=== PATIENT | female | born 1970 | race Two or more races ===

== ENCOUNTER → 2016-08-07 | Outpatient (REF) | payer OTHER ==
[~2016-08-07] MED LIST: /PANT40TA PO; ASPI81TA7 PO; ASTORVASTATIN; BACT800T5 PO; CORE25TA PO; FENO145T PO; KRILL OIL PO; LISINOPRIL-HCTZ PO; LISIPOW PO; METF500T PO; MULTTAB4 PO; PERC7.5T12 PO; PRIL40CA PO; URISPAS PO; [UNRECOGNIZED DRUG - OTHER]; victoza SC
[2016-08-07 11:24] LABS: BASO % 0.9 % (0.0-1.0); EOS # 0.2 K/mm3 (0.0-0.50); EOS % 3.5 % (0.0-3.0); LARGE UNSTAINED CELL # 0.2 K/mm3 (0.0-0.4); LARGE UNSTAINED CELL % 3.3 % (0.0-4.0); LYMPH # 1.4 K/mm3 (1.5-4.5); LYMPH % 29.8 % (24.0-44.0); MEAN CORPUSCULAR HEMOGLOBIN 27.4 pg (27.0-33.0); MEAN CORPUSCULAR HGB CONC 32.3 g/dl (32.0-36.5); MEAN CORPUSCULAR VOLUME 84.8 fl (80.0-96.0); MONO # 0.3 K/mm3 (0.0-0.8); MONO % 5.9 % (0.0-5.0); NEUTROPHILS # 2.6 K/mm3 (1.8-7.7); NEUTROPHILS % 56.6 % (36.0-66.0); PLATELET COUNT, AUTOMATED 267 k/mm3 (150-450); RED CELL DISTRIBUTION WIDTH 14.2 % (11.5-14.5); WHITE BLOOD COUNT 4.5 K/mm3 (4.0-10.0)
[2016-08-07 12:01] LABS: ALBUMIN 3.7 GM/DL (3.2-5.2); ALBUMIN/GLOBULIN RATIO 1.09 (1.00-1.93); ALKALINE PHOSPHATASE 28 U/L (45-117); ALT/SGPT 28 U/L (12-78); ANION GAP 11 MEQ/L (8-16); AST/SGOT 17 U/L (15-37); BILIRUBIN,TOTAL 0.4 MG/DL (0.2-1.0); BLOOD UREA NITROGEN 15 MG/DL (7-18); CALCIUM LEVEL 8.7 MG/DL (8.5-10.1); CARBON DIOXIDE LEVEL 26 MEQ/L (21-32); CHLORIDE LEVEL 105 MEQ/L (98-107); CHOLESTEROL LEVEL 161 MG/DL (<200); CREATININE FOR GFR 0.77 MG/DL (0.55-1.02); GLOMERULAR FILTRATION RATE > 60.0 (>58); GLUCOSE, FASTING 133 MG/DL (70-105); POTASSIUM SERUM 4.3 MEQ/L (3.5-5.1); SODIUM LEVEL 142 MEQ/L (136-145); TOTAL PROTEIN 7.1 GM/DL (6.4-8.2); TRIGLYCERIDES LEVEL 233 MG/DL (<150)
== END ==
LOC: M SFHCCLAY 09:02
PROVIDERS: ATTEND Family Medicine
DX: D50.9 Iron deficiency anemia, unspecified (principal); E78.5 Hyperlipidemia, unspecified; E11.9 Type 2 diabetes mellitus without complications

== ENCOUNTER → 2016-11-03 | Outpatient (REF) | payer OTHER ==
[2016-11-03 11:53] LABS: EOS # 0.2 K/mm3 (0.0-0.50); EOS % 4.6 % (0.0-3.0); LARGE UNSTAINED CELL # 0.1 K/mm3 (0.0-0.4); LYMPH # 1.6 K/mm3 (1.5-4.5); LYMPH % 33.6 % (24.0-44.0); MEAN CORPUSCULAR HEMOGLOBIN 27.3 pg (27.0-33.0); MEAN CORPUSCULAR HGB CONC 31.6 g/dl (32.0-36.5); MEAN CORPUSCULAR VOLUME 86.3 fl (80.0-96.0); MONO # 0.3 K/mm3 (0.0-0.8); MONO % 6.3 % (0.0-5.0); NEUTROPHILS # 2.5 K/mm3 (1.8-7.7); NEUTROPHILS % 52.4 % (36.0-66.0); PLATELET COUNT, AUTOMATED 245 k/mm3 (150-450); RED CELL DISTRIBUTION WIDTH 14.8 % (11.5-14.5); WHITE BLOOD COUNT 4.8 K/mm3 (4.0-10.0)
[2016-11-03 13:02] LABS: ALBUMIN 3.9 GM/DL (3.2-5.2); ALBUMIN/GLOBULIN RATIO 1.22 (1.00-1.93); ALKALINE PHOSPHATASE 33 U/L (45-117); ALT/SGPT 35 U/L (12-78); ANION GAP 7 MEQ/L (8-16); AST/SGOT 12 U/L (15-37); BILIRUBIN,TOTAL 0.3 MG/DL (0.2-1.0); BLOOD UREA NITROGEN 15 MG/DL (7-18); CALCIUM LEVEL 9.4 MG/DL (8.5-10.1); CARBON DIOXIDE LEVEL 28 MEQ/L (21-32); CHLORIDE LEVEL 104 MEQ/L (98-107); CHOLESTEROL LEVEL 165 MG/DL (<200); CREATININE FOR GFR 0.86 MG/DL (0.55-1.02); GLOMERULAR FILTRATION RATE > 60.0 (>58); GLUCOSE, FASTING 136 MG/DL (70-105); SODIUM LEVEL 139 MEQ/L (136-145); TOTAL PROTEIN 7.1 GM/DL (6.4-8.2); TRIGLYCERIDES LEVEL 206 MG/DL (<150)
== END ==
LOC: M SFHCCLAY 08:28
PROVIDERS: ATTEND Family Medicine
DX: D50.9 Iron deficiency anemia, unspecified (principal); E11.9 Type 2 diabetes mellitus without complications; E78.5 Hyperlipidemia, unspecified

== ENCOUNTER → 2016-12-07 | Outpatient (REF) | payer OTHER | LOC: M SFHCCLAY 16:13 | PROVIDERS: ATTEND Family Medicine | DX: R30.0 Dysuria (principal) ==

== ENCOUNTER → 2016-12-28 | Outpatient (REF) | payer OTHER ==
[2016-12-28 16:51] LABS: BASO % 0.6 % (0.0-1.0); EOS # 0.1 K/mm3 (0.0-0.50); EOS % 1.5 % (0.0-3.0); LARGE UNSTAINED CELL # 0.2 K/mm3 (0.0-0.4); LARGE UNSTAINED CELL % 2.6 % (0.0-4.0); LYMPH # 1.9 K/mm3 (1.5-4.5); LYMPH % 32.2 % (24.0-44.0); MEAN CORPUSCULAR HEMOGLOBIN 28.1 pg (27.0-33.0); MEAN CORPUSCULAR HGB CONC 32.6 g/dl (32.0-36.5); MEAN CORPUSCULAR VOLUME 86.2 fl (80.0-96.0); MONO # 0.4 K/mm3 (0.0-0.8); MONO % 6.2 % (0.0-5.0); NEUTROPHILS # 3.3 K/mm3 (1.8-7.7); NEUTROPHILS % 56.9 % (36.0-66.0); PLATELET COUNT, AUTOMATED 326 k/mm3 (150-450); RED CELL DISTRIBUTION WIDTH 14.2 % (11.5-14.5); WHITE BLOOD COUNT 5.8 K/mm3 (4.0-10.0)
[2016-12-28 17:18] LABS: ALBUMIN 4.1 GM/DL (3.2-5.2); ALBUMIN/GLOBULIN RATIO 1.21 (1.00-1.93); ALKALINE PHOSPHATASE 29 U/L (45-117); ALT/SGPT 26 U/L (12-78); ANION GAP 9 MEQ/L (8-16); AST/SGOT 12 U/L (15-37); BILIRUBIN,TOTAL 0.4 MG/DL (0.2-1.0); BLOOD UREA NITROGEN 16 MG/DL (7-18); CALCIUM LEVEL 9.3 MG/DL (8.5-10.1); CARBON DIOXIDE LEVEL 28 MEQ/L (21-32); CHLORIDE LEVEL 102 MEQ/L (98-107); CREATININE FOR GFR 0.84 MG/DL (0.55-1.02); GLOMERULAR FILTRATION RATE > 60.0 (>58); GLUCOSE, FASTING 99 MG/DL (70-105); SODIUM LEVEL 139 MEQ/L (136-145); TOTAL PROTEIN 7.5 GM/DL (6.4-8.2)
== END ==
LOC: M SFHCCLAY 11:48
PROVIDERS: ATTEND Family Medicine
DX: R10.32 Left lower quadrant pain (principal); R10.2 Pelvic and perineal pain

== ENCOUNTER → 2017-02-05 | Outpatient (REF) | payer OTHER ==
[2017-02-05 11:24] LABS: BASO # 0.1 K/mm3 (0.0-0.2); BASO % 1.6 % (0.0-1.0); EOS # 0.2 K/mm3 (0.0-0.50); EOS % 3.1 % (0.0-3.0); LARGE UNSTAINED CELL # 0.2 K/mm3 (0.0-0.4); LARGE UNSTAINED CELL % 2.8 % (0.0-4.0); LYMPH # 1.9 K/mm3 (1.5-4.5); LYMPH % 35.6 % (24.0-44.0); MEAN CORPUSCULAR HEMOGLOBIN 28.4 pg (27.0-33.0); MEAN CORPUSCULAR HGB CONC 33.4 g/dl (32.0-36.5); MONO # 0.3 K/mm3 (0.0-0.8); MONO % 5.7 % (0.0-5.0); NEUTROPHILS # 2.8 K/mm3 (1.8-7.7); NEUTROPHILS % 51.1 % (36.0-66.0); PLATELET COUNT, AUTOMATED 299 k/mm3 (150-450); WHITE BLOOD COUNT 5.4 K/mm3 (4.0-10.0)
[2017-02-05 11:43] LABS: ANION GAP 7 MEQ/L (8-16); BLOOD UREA NITROGEN 17 MG/DL (7-18); CARBON DIOXIDE LEVEL 29 MEQ/L (21-32); CHLORIDE LEVEL 106 MEQ/L (98-107); CREATININE FOR GFR 0.91 MG/DL (0.55-1.02); GLOMERULAR FILTRATION RATE > 60.0 (>58); GLUCOSE, FASTING 126 MG/DL (70-105); POTASSIUM SERUM 3.9 MEQ/L (3.5-5.1); SODIUM LEVEL 142 MEQ/L (136-145)
== END ==
LOC: M SFHCCLAY 08:26
PROVIDERS: ATTEND Family Medicine
DX: D50.9 Iron deficiency anemia, unspecified (principal); E11.9 Type 2 diabetes mellitus without complications

== ENCOUNTER → 2017-05-04 | Outpatient (REF) | payer OTHER ==
[2017-05-04 12:01] LABS: BASO % 0.6 % (0.0-1.0); EOS # 0.1 10^3/uL (0.0-0.50); EOS % 1.3 % (0.0-3.0); IMMATURE GRANULOCYTE % 0.4 % (0-0); LYMPH # 1.7 10^3/uL (1.5-4.5); LYMPH % 32.6 % (24.0-44.0); MEAN CORPUSCULAR HEMOGLOBIN 27.1 pg (27.0-33.0); MEAN CORPUSCULAR HGB CONC 31.7 g/dl (32.0-36.5); MEAN CORPUSCULAR VOLUME 85.5 fl (80.0-96.0); MONO # 0.4 10^3/uL (0.0-0.8); NEUTROPHILS # 3.1 10^3/uL (1.8-7.7); NEUTROPHILS % 58.1 % (36.0-66.0); PLATELET COUNT, AUTOMATED 327 10^3/uL (150-450); RED CELL DISTRIBUTION WIDTH 15.1 % (11.5-14.5); WHITE BLOOD COUNT 5.3 10^3/uL (4.0-10.0)
[2017-05-04 12:10] LABS: ADD MANUAL DIFFER NO; DIFF SLIDE NUMBER 133
[2017-05-04 12:27] LABS: ANION GAP 7 MEQ/L (8-16); BLOOD UREA NITROGEN 19 MG/DL (7-18); CALCIUM LEVEL 9.2 MG/DL (8.5-10.1); CARBON DIOXIDE LEVEL 28 MEQ/L (21-32); CHLORIDE LEVEL 105 MEQ/L (98-107); CREATININE FOR GFR 0.86 MG/DL (0.55-1.02); GLOMERULAR FILTRATION RATE > 60.0 (>58); GLUCOSE, FASTING 101 MG/DL (70-105); SODIUM LEVEL 140 MEQ/L (136-145)
== END ==
LOC: M SFHCCLAY 08:57
PROVIDERS: ATTEND Family Medicine
DX: D50.9 Iron deficiency anemia, unspecified (principal); E11.9 Type 2 diabetes mellitus without complications

== ENCOUNTER → 2017-08-22 | Outpatient (REF) | payer OTHER ==
[2017-08-22 13:51] LABS: BASO # 0.1 10^3/uL (0.0-0.2); BASO % 0.8 % (0.0-1.0); EOS # 0.1 10^3/uL (0.0-0.50); EOS % 2.3 % (0.0-3.0); HEMATOCRIT 37.5 % (36.0-47.0); HEMOGLOBIN 11.8 g/dl (12.0-16.0); IMMATURE GRANULOCYTE % 0.5 % (0-0); LYMPH % 33.3 % (24.0-44.0); MEAN CORPUSCULAR HEMOGLOBIN 27.1 pg (27.0-33.0); MEAN CORPUSCULAR HGB CONC 31.5 g/dl (32.0-36.5); MONO # 0.5 10^3/uL (0.0-0.8); MONO % 8.6 % (0.0-5.0); NEUTROPHILS # 3.3 10^3/uL (1.8-7.7); NEUTROPHILS % 54.5 % (36.0-66.0); PLATELET COUNT, AUTOMATED 318 10^3/uL (150-450); RED BLOOD COUNT 4.36 10^6/uL (4.00-5.40); RED CELL DISTRIBUTION WIDTH 14.7 % (11.5-14.5)
[2017-08-22 14:33] LABS: ANION GAP 8 MEQ/L (8-16); BLOOD UREA NITROGEN 20 MG/DL (7-18); CALCIUM LEVEL 9.1 MG/DL (8.5-10.1); CARBON DIOXIDE LEVEL 29 MEQ/L (21-32); CHLORIDE LEVEL 103 MEQ/L (98-107); CREATININE FOR GFR 0.78 MG/DL (0.55-1.02); GLOMERULAR FILTRATION RATE > 60.0 (>58); GLUCOSE, FASTING 110 MG/DL (70-100); IRON (FE) 34 UG/DL (50-170); POTASSIUM SERUM 4.1 MEQ/L (3.5-5.1); SODIUM LEVEL 140 MEQ/L (136-145)
[2017-08-22 15:03] LABS: ESTIMATED AVERAGE GLUCOSE 134 MG/DL (60-110); HEMOGLOBIN A1c 6.3 %
== END ==
LOC: M SFHCCLAY 08:19
DX: I10 Essential (primary) hypertension (principal); D50.9 Iron deficiency anemia, unspecified; E11.9 Type 2 diabetes mellitus without complications
CPT/HCPCS: 83540

== ENCOUNTER → 2017-10-04 | Outpatient (REF) | payer OTHER | LOC: M SFHCCLAY 10:28 | DX: R31.9 Hematuria, unspecified (principal) | CPT/HCPCS: 87186 ==

== ENCOUNTER → 2017-11-09 | Outpatient (REF) | payer OTHER ==
[2017-11-09 11:41] LABS: BASO # 0.1 10^3/uL (0.0-0.2); EOS # 0.1 10^3/uL (0.0-0.50); EOS % 2.7 % (0.0-3.0); HEMATOCRIT 36.9 % (36.0-47.0); HEMOGLOBIN 11.6 g/dl (12.0-15.5); IMMATURE GRANULOCYTE % 0.6 % (0-3.0); LYMPH # 1.6 10^3/uL (1.5-4.5); LYMPH % 30.9 % (24.0-44.0); MEAN CORPUSCULAR HEMOGLOBIN 26.7 pg (27.0-33.0); MEAN CORPUSCULAR HGB CONC 31.4 g/dl (32.0-36.5); MEAN CORPUSCULAR VOLUME 84.8 fl (80.0-96.0); MONO # 0.4 10^3/uL (0.0-0.8); MONO % 8.6 % (0.0-5.0); NEUTROPHILS # 2.9 10^3/uL (1.8-7.7); NEUTROPHILS % 56.2 % (36.0-66.0); PLATELET COUNT, AUTOMATED 344 10^3/uL (150-450); RED BLOOD COUNT 4.35 10^6/uL (4.00-5.40); RED CELL DISTRIBUTION WIDTH 14.8 % (11.5-14.5); WHITE BLOOD COUNT 5.1 10^3/uL (4.0-10.0)
[2017-11-09 11:53] LABS: ESTIMATED AVERAGE GLUCOSE 134 MG/DL (60-110); HEMOGLOBIN A1c 6.3 %
[2017-11-09 12:25] LABS: ALBUMIN/GLOBULIN RATIO 1.08 (1.00-1.93); ALKALINE PHOSPHATASE 31 U/L (45-117); ALT/SGPT 29 U/L (12-78); ANION GAP 8 MEQ/L (8-16); AST/SGOT 14 U/L (7-37); BILIRUBIN,TOTAL 0.3 MG/DL (0.2-1.0); BLOOD UREA NITROGEN 17 MG/DL (7-18); CALCIUM LEVEL 9.1 MG/DL (8.5-10.1); CARBON DIOXIDE LEVEL 28 MEQ/L (21-32); CHLORIDE LEVEL 106 MEQ/L (98-107); CHOLESTEROL LEVEL 166 MG/DL (<200); CHOLESTEROL RISK RATIO 7.904 (<5); CREATININE FOR GFR 0.94 MG/DL (0.55-1.30); GLOMERULAR FILTRATION RATE > 60.0 (>58); GLUCOSE, FASTING 113 MG/DL (70-100); HDL CHOLESTEROL 21 MG/DL (>40); IRON (FE) 44 UG/DL (50-170); LDL CHOLESTEROL 95.6 MG/DL (<100); NON-HDL-C 145 MG/DL; POTASSIUM SERUM 4.3 MEQ/L (3.5-5.1); SODIUM LEVEL 142 MEQ/L (136-145); TOTAL PROTEIN 7.7 GM/DL (6.4-8.2); TRIGLYCERIDES LEVEL 247 MG/DL (<150)
== END ==
LOC: M SFHCCLAY 08:05
DX: D50.9 Iron deficiency anemia, unspecified (principal); E11.9 Type 2 diabetes mellitus without complications; E78.5 Hyperlipidemia, unspecified
CPT/HCPCS: 83540

== ENCOUNTER → 2018-02-18 | Outpatient (REF) | payer OTHER ==
[2018-02-18 11:53] LABS: BASO % 0.6 % (0.0-1.0); EOS # 0.1 10^3/uL (0.0-0.50); EOS % 2.5 % (0.0-3.0); HEMATOCRIT 35.8 % (36.0-47.0); HEMOGLOBIN 11.8 g/dl (12.0-15.5); IMMATURE GRANULOCYTE % 0.8 % (0-3.0); LYMPH # 1.4 10^3/uL (1.5-4.5); LYMPH % 27.3 % (24.0-44.0); MEAN CORPUSCULAR HEMOGLOBIN 28.4 pg (27.0-33.0); MEAN CORPUSCULAR VOLUME 86.1 fl (80.0-96.0); MONO # 0.4 10^3/uL (0.0-0.8); MONO % 7.8 % (0.0-5.0); NEUTROPHILS # 3.2 10^3/uL (1.8-7.7); PLATELET COUNT, AUTOMATED 288 10^3/uL (150-450); RED BLOOD COUNT 4.16 10^6/uL (4.00-5.40); RED CELL DISTRIBUTION WIDTH 15.2 % (11.5-14.5); WHITE BLOOD COUNT 5.2 10^3/uL (4.0-10.0)
[2018-02-18 12:37] LABS: ANION GAP 10 MEQ/L (8-16); BLOOD UREA NITROGEN 16 MG/DL (7-18); CALCIUM LEVEL 9.2 MG/DL (8.5-10.1); CARBON DIOXIDE LEVEL 29 MEQ/L (21-32); CHLORIDE LEVEL 103 MEQ/L (98-107); CREATININE FOR GFR 0.77 MG/DL (0.55-1.30); GLOMERULAR FILTRATION RATE > 60.0 (>58); GLUCOSE, FASTING 120 MG/DL (70-100); POTASSIUM SERUM 3.9 MEQ/L (3.5-5.1); SODIUM LEVEL 142 MEQ/L (136-145)
[2018-02-18 14:21] LABS: ESTIMATED AVERAGE GLUCOSE 146 MG/DL (60-110); HEMOGLOBIN A1c 6.7 %
== END ==
LOC: M SFHCCLAY 08:54
DX: D50.9 Iron deficiency anemia, unspecified (principal); E11.9 Type 2 diabetes mellitus without complications

== ENCOUNTER → 2018-06-05 | Outpatient (REF) | payer OTHER ==
[2018-06-05 11:40] LABS: BASO # 0.1 10^3/uL (0.0-0.2); BASO % 1.1 % (0.0-1.0); EOS # 0.1 10^3/uL (0.0-0.50); EOS % 2.2 % (0.0-3.0); HEMATOCRIT 38.1 % (36.0-47.0); HEMOGLOBIN 12.2 g/dl (12.0-15.5); IMMATURE GRANULOCYTE % 0.5 % (0-3.0); LYMPH # 1.9 10^3/uL (1.5-4.5); LYMPH % 34.2 % (24.0-44.0); MEAN CORPUSCULAR HEMOGLOBIN 27.7 pg (27.0-33.0); MEAN CORPUSCULAR VOLUME 86.4 fl (80.0-96.0); MONO # 0.5 10^3/uL (0.0-0.8); MONO % 8.3 % (0.0-5.0); NEUTROPHILS % 53.7 % (36.0-66.0); PLATELET COUNT, AUTOMATED 339 10^3/uL (150-450); RED BLOOD COUNT 4.41 10^6/uL (4.00-5.40); RED CELL DISTRIBUTION WIDTH 14.6 % (11.5-14.5); WHITE BLOOD COUNT 5.5 10^3/uL (4.0-10.0)
[2018-06-05 11:47] LABS: ALBUMIN/GLOBULIN RATIO 1.18 (1.00-1.93); ALKALINE PHOSPHATASE 28 U/L (45-117); ALT/SGPT 30 U/L (12-78); ANION GAP 9 MEQ/L (8-16); AST/SGOT 14 U/L (7-37); BILIRUBIN,TOTAL 0.3 MG/DL (0.2-1.0); BLOOD UREA NITROGEN 16 MG/DL (7-18); CALCIUM LEVEL 9.8 MG/DL (8.5-10.1); CARBON DIOXIDE LEVEL 28 MEQ/L (21-32); CHLORIDE LEVEL 104 MEQ/L (98-107); CHOLESTEROL LEVEL 161 MG/DL (<200); CHOLESTEROL RISK RATIO 7.666 (<5); CREATININE FOR GFR 0.86 MG/DL (0.55-1.30); GLOMERULAR FILTRATION RATE > 60.0 (>58); GLUCOSE, FASTING 110 MG/DL (70-100); HDL CHOLESTEROL 21 MG/DL (>40); IRON (FE) 36 UG/DL (50-170); LDL CHOLESTEROL 91 MG/DL (<100); NON-HDL-C 140 MG/DL; POTASSIUM SERUM 4.3 MEQ/L (3.5-5.1); SODIUM LEVEL 141 MEQ/L (136-145); TOTAL PROTEIN 7.4 GM/DL (6.4-8.2); TRIGLYCERIDES LEVEL 246 MG/DL (<150)
[2018-06-05 11:55] LABS: ESTIMATED AVERAGE GLUCOSE 140 MG/DL (60-110); HEMOGLOBIN A1c 6.5 %
== END ==
LOC: M SFHCCLAY 08:00
DX: D50.9 Iron deficiency anemia, unspecified (principal); E11.9 Type 2 diabetes mellitus without complications; E78.5 Hyperlipidemia, unspecified

== ENCOUNTER → 2018-08-01 | Outpatient (REF) | payer OTHER | LOC: M SFHCCLAY 12:07 | PROVIDERS: ATTEND Nurse Practitioner Family | DX: N39.0 Urinary tract infection, site not specified (principal) ==

== ENCOUNTER → 2018-09-12 | Outpatient (REF) | payer OTHER ==
[2018-09-12 12:07] LABS: ALT/SGPT 28 U/L (12-78); BILIRUBIN,TOTAL 0.2 MG/DL (0.2-1.0); BLOOD UREA NITROGEN 21 MG/DL (7-18); CALCIUM LEVEL 8.8 MG/DL (8.5-10.1); CARBON DIOXIDE LEVEL 28 MEQ/L (21-32); CHLORIDE LEVEL 103 MEQ/L (98-107); CHOLESTEROL LEVEL 166 MG/DL (<200); CHOLESTEROL RISK RATIO 9.222 (<5); CREATININE FOR GFR 0.86 MG/DL (0.55-1.30); GLOMERULAR FILTRATION RATE > 60.0 (>58); GLUCOSE, FASTING 111 MG/DL (70-100); HDL CHOLESTEROL 18 MG/DL (>40); LDL CHOLESTEROL 87 MG/DL (<100); NON-HDL-C 148 MG/DL; POTASSIUM SERUM 4.2 MEQ/L (3.5-5.1); SODIUM LEVEL 140 MEQ/L (136-145); TOTAL PROTEIN 7.3 GM/DL (6.4-8.2); TRIGLYCERIDES LEVEL 303 MG/DL (<150)
[2018-09-12 14:16] LABS: HEMOGLOBIN A1c 6.8 %
== END ==
LOC: M SFHCCLAY 07:37
PROVIDERS: ATTEND Family Medicine
DX: E11.9 Type 2 diabetes mellitus without complications (principal); E78.5 Hyperlipidemia, unspecified

== ENCOUNTER → 2019-01-21 | Outpatient (REF) | payer OTHER ==
[~2019-01-21] MED LIST changes: -/PANT40TA PO; +PROT1TAB2 PO
[2019-01-21 11:42] LABS: BASO # 0.1 10^3/uL (0.0-0.2); BASO % 1.1 % (0.0-1.0); EOS # 0.1 10^3/uL (0.0-0.50); EOS % 3.2 % (0.0-3.0); HEMATOCRIT 35.7 % (36.0-47.0); HEMOGLOBIN 11.1 g/dl (12.0-15.5); LYMPH # 1.7 10^3/uL (1.5-4.5); LYMPH % 37.7 % (24.0-44.0); MEAN CORPUSCULAR HEMOGLOBIN 26.4 pg (27.0-33.0); MEAN CORPUSCULAR HGB CONC 31.1 g/dl (32.0-36.5); MONO # 0.5 10^3/uL (0.0-0.8); MONO % 10.5 % (0.0-5.0); NEUTROPHILS # 2.1 10^3/uL (1.8-7.7); PLATELET COUNT, AUTOMATED 324 10^3/uL (150-450); WHITE BLOOD COUNT 4.4 10^3/uL (4.0-10.0)
[2019-01-21 11:50] LABS: ALBUMIN 3.9 GM/DL (3.2-5.2); ALT/SGPT 32 U/L (12-78); BILIRUBIN,TOTAL 0.2 MG/DL (0.2-1.0); BLOOD UREA NITROGEN 16 MG/DL (7-18); CALCIUM LEVEL 9.3 MG/DL (8.5-10.1); CARBON DIOXIDE LEVEL 28 MEQ/L (21-32); CHLORIDE LEVEL 104 MEQ/L (98-107); CHOLESTEROL LEVEL 165 MG/DL (<200); CREATININE FOR GFR 0.83 MG/DL (0.55-1.30); GLOMERULAR FILTRATION RATE > 60.0 (>58); GLUCOSE, FASTING 128 MG/DL (70-100); HDL CHOLESTEROL 22 MG/DL (>40); IRON (FE) 31 UG/DL (50-170); LDL CHOLESTEROL 71 MG/DL (<100); NON-HDL-C 143 MG/DL; POTASSIUM SERUM 3.9 MEQ/L (3.5-5.1); SODIUM LEVEL 140 MEQ/L (136-145); TOTAL PROTEIN 7.2 GM/DL (6.4-8.2); TRIGLYCERIDES LEVEL 358 MG/DL (<150)
== END ==
LOC: M SFHCCLAY 08:01
PROVIDERS: ATTEND Family Medicine
DX: D50.9 Iron deficiency anemia, unspecified (principal); E11.9 Type 2 diabetes mellitus without complications; E78.5 Hyperlipidemia, unspecified

== ENCOUNTER → 2019-04-01 | Outpatient (REF) | payer OTHER ==
[2019-04-01 17:27] LABS: BLOOD UREA NITROGEN 15 MG/DL (7-18); CALCIUM LEVEL 9.4 MG/DL (8.5-10.1); CARBON DIOXIDE LEVEL 27 MEQ/L (21-32); CHLORIDE LEVEL 104 MEQ/L (98-107); CREATININE FOR GFR 0.72 MG/DL (0.55-1.30); GLOMERULAR FILTRATION RATE > 60.0 (>58); GLUCOSE, FASTING 88 MG/DL (70-100); MAGNESIUM LEVEL 1.6 MG/DL (1.8-2.4); POTASSIUM SERUM 4.4 MEQ/L (3.5-5.1); SODIUM LEVEL 139 MEQ/L (136-145)
== END ==
LOC: M SFHCCLAY 13:28
PROVIDERS: ATTEND Family Medicine
DX: E87.6 Hypokalemia (principal); R79.0 Abnormal level of blood mineral

== ENCOUNTER → 2019-04-01 | Outpatient (CLI) | payer OTHER ==
--- NOTE | 2019-04-01 14:58 | REP ---
Clinical: Recent history of right lower lobe pneumonia. Comparison: 04/07/2013 . Technique: PA and lateral. Findings: The mediastinum and cardiac silhouette are normal. The lung mayo are clear and without acute consolidation, effusion, or pneumothorax. The skeletal structures are intact and normal. Impression: 1. No acute cardiopulmonary process. Electronically Signed by Jose Blair MD 04/01/2019 02:49 P
== END ==
LOC: M CLY 13:50
PROVIDERS: ATTEND Family Medicine
DX: J18.1 Lobar pneumonia, unspecified organism (principal)

== ENCOUNTER → 2019-04-02 | Outpatient (REF) | payer OTHER ==
[2019-04-02 14:24] LABS: APPEARANCE, URINE CLEAR (CLEAR); BACTERIA, URINE AUTO NEGATIVE (NEGATIVE); BILIRUBIN, URINE AUTO NEGATIVE (NEGATIVE); BLOOD, URINE BLOOD NEGATIVE (NEGATIVE); COLOR, URINE YELLOW (YELLOW); GLUCOSE, URINE (UA) AUTO NEGATIVE (NEGATIVE); KETONE, URINE AUTO NEGATIVE (NEGATIVE); LEUKOCYTE ESTERASE, URINE AUTO NEGATIVE (NEGATIVE); NITRITE, URINE AUTO NEGATIVE (NEGATIVE); PROTEIN, URINE AUTO NEGATIVE (NEGATIVE); RBC, URINE AUTO 1 /HPF (0-3); SPECIFIC GRAVITY URINE AUTO 1.017 (1.002-1.035); SQUAMOUS EPITHELIAL CELL UR AU 0 /HPF (0-6); UROBILINOGEN, URINE AUTO 0.2 mg/dL (0.0-2.0); WBC, URINE AUTO 3 /HPF (0-3)
== END ==
LOC: M SMT 13:23
PROVIDERS: ATTEND Nurse Practitioner Family
DX: N20.0 Calculus of kidney (principal)

== ENCOUNTER → 2019-05-19 | Outpatient (REF) | payer OTHER ==
[2019-05-19 11:23] LABS: BASO # 0.1 10^3/uL (0.0-0.2); BASO % 1.2 % (0.0-1.0); EOS # 0.2 10^3/uL (0.0-0.5); EOS % 3.3 % (0.0-3.0); HEMATOCRIT 40.2 % (36.0-47.0); HEMOGLOBIN 12.5 g/dl (12.0-15.5); LYMPH # 1.6 10^3/uL (1.5-5.0); LYMPH % 32.1 % (24.0-44.0); MEAN CORPUSCULAR HEMOGLOBIN 27.5 pg (27.0-33.0); MEAN CORPUSCULAR HGB CONC 31.1 g/dl (32.0-36.5); MEAN CORPUSCULAR VOLUME 88.4 fl (80.0-96.0); MONO # 0.4 10^3/uL (0.0-0.8); MONO % 8.3 % (0.0-5.0); NEUTROPHILS # 2.8 10^3/uL (1.5-8.5); NEUTROPHILS % 54.3 % (36.0-66.0); PLATELET COUNT, AUTOMATED 306 10^3/uL (150-450); RED BLOOD COUNT 4.55 10^6/uL (4.00-5.40); WHITE BLOOD COUNT 5.1 10^3/uL (4.0-10.0)
[2019-05-19 11:40] LABS: ALBUMIN 4.1 GM/DL (3.2-5.2); ALT/SGPT 30 U/L (12-78); BILIRUBIN,TOTAL 0.3 MG/DL (0.2-1.0); BLOOD UREA NITROGEN 19 MG/DL (7-18); CALCIUM LEVEL 9.5 MG/DL (8.5-10.1); CARBON DIOXIDE LEVEL 29 MEQ/L (21-32); CHLORIDE LEVEL 104 MEQ/L (98-107); CREATININE FOR GFR 0.87 MG/DL (0.55-1.30); GLOMERULAR FILTRATION RATE > 60.0 (>58); GLUCOSE, FASTING 138 MG/DL (70-100); IRON (FE) 47 UG/DL (50-170); POTASSIUM SERUM 4.3 MEQ/L (3.5-5.1); SODIUM LEVEL 139 MEQ/L (136-145); TOTAL PROTEIN 7.9 GM/DL (6.4-8.2)
[2019-05-19 12:35] LABS: HEMOGLOBIN A1c 6.8 %
== END ==
LOC: M SFHCCLAY 07:25
PROVIDERS: ATTEND Family Medicine
DX: D50.9 Iron deficiency anemia, unspecified (principal); E11.9 Type 2 diabetes mellitus without complications; I10 Essential (primary) hypertension; E78.5 Hyperlipidemia, unspecified

== ENCOUNTER → 2019-08-29 | Outpatient (REF) | payer OTHER ==
[2019-08-29 12:03] LABS: BASO # 0.1 10^3/uL (0.0-0.2); BASO % 0.8 % (0.0-1.0); EOS # 0.2 10^3/uL (0.0-0.5); EOS % 2.5 % (0.0-3.0); HEMATOCRIT 41.3 % (36.0-47.0); HEMOGLOBIN 12.9 g/dl (12.0-15.5); LYMPH # 1.7 10^3/uL (1.5-5.0); LYMPH % 25.7 % (24.0-44.0); MEAN CORPUSCULAR HGB CONC 31.2 g/dl (32.0-36.5); MEAN CORPUSCULAR VOLUME 89.6 fl (80.0-96.0); MONO # 0.5 10^3/uL (0.0-0.8); MONO % 7.7 % (0.0-5.0); NEUTROPHILS # 4.1 10^3/uL (1.5-8.5); PLATELET COUNT, AUTOMATED 282 10^3/uL (150-450); RED BLOOD COUNT 4.61 10^6/uL (4.00-5.40); WHITE BLOOD COUNT 6.5 10^3/uL (4.0-10.0)
[2019-08-29 12:32] LABS: HEMOGLOBIN A1c 7.1 %
[2019-08-29 12:41] LABS: ALBUMIN 4.2 GM/DL (3.2-5.2); ALT/SGPT 36 U/L (12-78); BILIRUBIN,TOTAL 0.6 MG/DL (0.2-1.0); BLOOD UREA NITROGEN 17 MG/DL (7-18); CALCIUM LEVEL 9.2 MG/DL (8.5-10.1); CARBON DIOXIDE LEVEL 29 MEQ/L (21-32); CHLORIDE LEVEL 106 MEQ/L (98-107); CREATININE FOR GFR 0.89 MG/DL (0.55-1.30); GLOMERULAR FILTRATION RATE > 60.0 (>58); GLUCOSE, FASTING 130 MG/DL (70-100); IRON (FE) 38 UG/DL (50-170); POTASSIUM SERUM 4.1 MEQ/L (3.5-5.1); SODIUM LEVEL 141 MEQ/L (136-145); TOTAL PROTEIN 7.4 GM/DL (6.4-8.2)
== END ==
LOC: M SFHCCLAY 07:24
PROVIDERS: ATTEND Family Medicine
DX: D50.9 Iron deficiency anemia, unspecified (principal); E11.9 Type 2 diabetes mellitus without complications

== ENCOUNTER → 2019-09-01 | Outpatient (CLI) | payer OTHER ==
--- NOTE | 2019-09-02 02:33 | REP ---
Clinical: Lumbar radiculopathy . Technique: AP, lateral, bilateral oblique, and coned-down views. Findings: Lateral view demonstrates mild, 4 mm anterolisthesis at the L4-5 without associated disc space narrowing or obvious significant hypertrophic facet changes. Mild endplate sclerosis with disc space narrowing and hypertrophic facet changes at L5-S1 noted. Remainder examination appears relatively normal. Impression: Degenerative changes at the L4-5 and L5-S1 levels. Electronically Signed by Jose Blair MD 09/02/2019 02:25 A
== END ==
LOC: M CLY 14:00
PROVIDERS: ATTEND Family Medicine
DX: M54.16 Radiculopathy, lumbar region (principal)

== ENCOUNTER → 2019-09-01 | Outpatient (REF) | payer OTHER ==
[2019-09-01 17:27] LABS: C REACTIVE PROTEIN QUANTITATIV < 0.30 MG/DL (0.00-0.30); RHEUMATOID FACTOR QUANT < 10.0 IU/ML (<15.0)
[2019-09-04 00:06] LABS: ANA (HEP2) Negative (.); CYCLIC CITRULLINATED PEPTIDE 11 units (0-19); Lyme Disease IgG/IgM Antibodie <0.91 ISR (0.00-0.90); Lyme Disease IgM Ab Quantitati <0.80 index (0.00-0.79)
== END ==
LOC: M SFHCCLAY 13:32
PROVIDERS: ATTEND Family Medicine
DX: M54.16 Radiculopathy, lumbar region (principal); M25.50 Pain in unspecified joint

== ENCOUNTER → 2019-12-01 | Outpatient (REF) | payer OTHER ==
[2019-12-01 12:35] LABS: BASO % 0.9 % (0.0-1.0); EOS # 0.1 10^3/uL (0.0-0.5); EOS % 2.9 % (0.0-3.0); HEMATOCRIT 38.6 % (36.0-47.0); HEMOGLOBIN 12.5 g/dl (12.0-15.5); LYMPH # 1.6 10^3/uL (1.5-5.0); LYMPH % 36.6 % (24.0-44.0); MEAN CORPUSCULAR HEMOGLOBIN 28.7 pg (27.0-33.0); MEAN CORPUSCULAR HGB CONC 32.4 g/dl (32.0-36.5); MEAN CORPUSCULAR VOLUME 88.5 fl (80.0-96.0); MONO # 0.4 10^3/uL (0.0-0.8); MONO % 8.8 % (0.0-5.0); NEUTROPHILS # 2.2 10^3/uL (1.5-8.5); NEUTROPHILS % 50.4 % (36.0-66.0); PLATELET COUNT, AUTOMATED 273 10^3/uL (150-450); RED BLOOD COUNT 4.36 10^6/uL (4.00-5.40); WHITE BLOOD COUNT 4.5 10^3/uL (4.0-10.0)
[2019-12-01 13:33] LABS: ALT/SGPT 34 U/L (12-78); BLOOD UREA NITROGEN 19 MG/DL (7-18); CALCIUM LEVEL 9.2 MG/DL (8.5-10.1); CARBON DIOXIDE LEVEL 26 MEQ/L (21-32); CHLORIDE LEVEL 103 MEQ/L (98-107); CREATININE FOR GFR 0.72 MG/DL (0.55-1.30); GLOMERULAR FILTRATION RATE > 60.0 (>58); GLUCOSE, FASTING 131 MG/DL (70-100); POTASSIUM SERUM 3.9 MEQ/L (3.5-5.1); SODIUM LEVEL 138 MEQ/L (136-145)
[2019-12-01 13:34] LABS: ALBUMIN 3.9 GM/DL (3.2-5.2); BILIRUBIN,TOTAL 0.3 MG/DL (0.2-1.0); IRON (FE) 45 UG/DL (50-170); TOTAL PROTEIN 7.2 GM/DL (6.4-8.2)
[2019-12-01 13:56] LABS: HEMOGLOBIN A1c 7.4 %
== END ==
LOC: M SFHCCLAY 09:10
PROVIDERS: ATTEND Family Medicine
DX: D50.9 Iron deficiency anemia, unspecified (principal); E11.9 Type 2 diabetes mellitus without complications

== ENCOUNTER → 2020-03-15 | Outpatient (REF) | payer OTHER ==
[~2020-03-15] MED LIST changes: +ATOR1TAB19 PO; +CIPR250T3 PO; +DICY20TA11 PO; +FENO160T10 PO; +FERR325T81 PO; +KRIL300C2 PO; +LISI20TA20 PO; +TRUL0.5I IM; +VITA-243 PO
[2020-05-01 18:36] LABS: HEMATOCRIT 36.6 % (36.0-47.0); HEMOGLOBIN 11.9 g/dl (12.0-15.5); MEAN CORPUSCULAR HEMOGLOBIN 29.2 pg (27.0-33.0); MEAN CORPUSCULAR VOLUME 89.9 fl (80.0-96.0); RED BLOOD COUNT 4.07 10^6/uL (4.00-5.40); WHITE BLOOD COUNT 4.8 10^3/uL (4.0-10.0)
[2020-05-01 18:37] LABS: MEAN CORPUSCULAR HGB CONC 32.5 g/dl (32.0-36.5); PLATELET COUNT, AUTOMATED 260 10^3/uL (150-450)
[2020-05-10 21:38] LABS: HEMOGLOBIN A1c 6.4 %
[2020-05-11 00:43] LABS: ALT/SGPT 35 U/L (12-78); BILIRUBIN,TOTAL 0.2 MG/DL (0.2-1.0); BLOOD UREA NITROGEN 15 MG/DL (7-18); CALCIUM LEVEL 9.3 MG/DL (8.5-10.1); CARBON DIOXIDE LEVEL 30 MEQ/L (21-32); CHLORIDE LEVEL 104 MEQ/L (98-107); CREATININE FOR GFR 0.73 MG/DL (0.55-1.30); GLOMERULAR FILTRATION RATE > 60.0 (>58); GLUCOSE, FASTING 137 MG/DL (70-100); IRON (FE) 43 UG/DL (50-170); POTASSIUM SERUM 3.9 MEQ/L (3.5-5.1); SODIUM LEVEL 138 MEQ/L (136-145)
== END ==
LOC: M SFHCCLAY 16:51
PROVIDERS: ATTEND Family Medicine
DX: R73.01 Impaired fasting glucose (principal); D64.9 Anemia, unspecified

== ENCOUNTER → 2020-05-02 | Outpatient (CLI) | payer OTHER | LOC: M LABSMTC 10:16 | PROVIDERS: ATTEND Anesthesiology | DX: Z01.812 Encounter for preprocedural laboratory examination (principal); Z20.828 Contact with and (suspected) exposure to other viral communicable diseases | CPT/HCPCS: C9803; U0003 ==

== ENCOUNTER 2020-05-07 09:32 | Day surgery (SDC) | payer OTHER ==
[~2020-05-07] VITALS: Ht 157.5 cm; Wt 78.0 kg
[~2020-05-07 09:32] MED LIST changes: +NS 1,000 ML IV ONE
[2020-05-07] MEDS ORDERED: propofoL 200 MG/20 ML VIAL As Ordered ONE ×2 (11:18→11:52)
[2020-05-07] MEDS ORDERED: LIDOCAINE 2% 100MG/5ML SDV (FOR ANES.) As Ordered ONE (11:18)
[2020-05-07] MEDS ORDERED: CETACAINE SPRAY 5GM As Ordered ONE (11:33)
--- NOTE | 2020-05-07 12:23 | ROOR ---
Patient Name: Stlela Fagan Procedure Date: 05/07/2020 11:30 AM Date of : 1970 Age: 49 Room: [facility] Gender: Female Note Status: Finalized Procedure: Upper GI endoscopy Indications: Heartburn, Suspected gastro-esophageal reflux disease Providers: Chuy Garcia MD Referring MD: HAILY GARCIA DO Requesting Provider: Medicines: Monitored Anesthesia Care Complications: No immediate complications. Procedure: Pre-Anesthesia Assessment: - Prior to the procedure, a History and Physical was performed, and patient medications and allergies were reviewed. The patient is competent. The risks and benefits of the procedure and the sedation options and risks were discussed with the patient. All questions were answered and informed consent was obtained. Patient identification and proposed procedure were verified by the physician, the nurse and the anesthesiologist in the procedure room. Mental Status Examination: alert and oriented. Airway Examination: normal oropharyngeal airway and neck mobility. Respiratory Examination: clear to auscultation. CV Examination: normal. Prophylactic Antibiotics: The patient does not require prophylactic antibiotics. Prior Anticoagulants: The patient has taken no previous anticoagulant or antiplatelet agents. ASA Grade Assessment: II - A patient with mild systemic disease. After reviewing the risks and benefits, the patient was deemed in satisfactory condition to undergo the procedure. The anesthesia plan was to use moderate sedation / analgesia (conscious sedation). Immediately prior to administration of medications, the patient was re-assessed for adequacy to receive sedatives. The heart rate, respiratory rate, oxygen saturations, blood pressure, adequacy of pulmonary ventilation, and response to care were monitored throughout the procedure. The physical status of the patient was re-assessed after the procedure. The Endoscope was introduced through the mouth, and advanced to the second part of duodenum. The upper GI endoscopy was accomplished without difficulty. The patient tolerated the procedure well. Findings: The examined esophagus was normal. The Z-line was regular and was found 39 cm from the incisors. Multiple large pedunculated and sessile fundic gland polyps with no bleeding and no stigmata of recent bleeding were found in the gastric fundus and in the gastric body. The polyp was removed with a cold snare. Resection and retrieval were complete. To close a defect after polypectomy, one hemostatic clip was successfully placed. There was no bleeding at the end of the procedure. Three biopsies were obtained in the gastric antrum with cold forceps for Helicobacter pylori testing. Verification of patient identification for the specimen was done by the physician and nurse using the patient's name, date and medical record number. Estimated blood loss was minimal. The duodenal bulb and second portion of the duodenum were normal. Biopsies for histology were taken with a cold forceps for evaluation of celiac disease. Impression: - Normal esophagus. - Z-line regular, 39 cm from the incisors. - Multiple fundic gland polyps. One sample polyp is resected and retrieved with jose net basket. Clip was placed. - Normal duodenal bulb and second portion of the duodenum. Biopsied. - Three biopsies were obtained in the gastric antrum for H. pylori testing.. Recommendation: - Patient has a contact number available for emergencies. The signs and symptoms of potential delayed complications were discussed with the patient. Return to normal activities tomorrow. Written discharge instructions were provided to the patient. - High fiber diet. - Continue present medications. - Use sucralfate tablets 1 gram PO QID for 4 weeks. - Await pathology results. - Follow an antireflux regimen. - Telephone GI clinic for pathology results in 1 week. - Return to primary care physician. Chuy Garcia MD Chuy Garcia MD 05/07/2020 12:23:05 PM Electronically signed by Chuy Garcia MD Number of Addenda: 0 Note Initiated On: 05/07/2020 11:30 AM Estimated Blood Loss: Estimated blood loss was minimal.
--- NOTE | 2020-05-07 12:26 | ROOR ---
Patient Name: Stella Fagan Procedure Date: 05/07/2020 11:31 AM Date of : 1970 Age: 49 Room: [facility] Gender: Female Note Status: Finalized Procedure: Colonoscopy Indications: Chronic diarrhea Providers: Chuy Garcia MD Referring MD: HAILY GARCIA DO Requesting Provider: Medicines: Monitored Anesthesia Care Complications: No immediate complications. Procedure: Pre-Anesthesia Assessment: - Prior to the procedure, a History and Physical was performed, and patient medications and allergies were reviewed. The patient is competent. The risks and benefits of the procedure and the sedation options and risks were discussed with the patient. All questions were answered and informed consent was obtained. Patient identification and proposed procedure were verified by the physician, the nurse and the anesthesiologist in the procedure room. Mental Status Examination: alert and oriented. Airway Examination: normal oropharyngeal airway and neck mobility. Respiratory Examination: clear to auscultation. CV Examination: normal. Prophylactic Antibiotics: The patient does not require prophylactic antibiotics. Prior Anticoagulants: The patient has taken no previous anticoagulant or antiplatelet agents. ASA Grade Assessment: II - A patient with mild systemic disease. After reviewing the risks and benefits, the patient was deemed in satisfactory condition to undergo the procedure. The anesthesia plan was to use monitored anesthesia care (MAC). Immediately prior to administration of medications, the patient was re-assessed for adequacy to receive sedatives. The heart rate, respiratory rate, oxygen saturations, blood pressure, adequacy of pulmonary ventilation, and response to care were monitored throughout the procedure. The physical status of the patient was re-assessed after the procedure. The Colonoscope was introduced through the anus and advanced to the terminal ileum, with identification of the appendiceal orifice and IC valve. The colonoscopy was performed without difficulty. The patient tolerated the procedure well. The quality of the bowel preparation was good. The terminal ileum, ileocecal valve, appendiceal orifice, and rectum were photographed. Scope insertion time was 3 minutes. Scope withdrawal time was 9 minutes. The total duration of the procedure was 12 minutes. Findings: The perianal and digital rectal examinations were normal. The terminal ileum appeared normal. Normal mucosa was found in the entire colon. Biopsies for histology were taken with a cold forceps from the right colon, left colon and rectosigmoid colon for evaluation of microscopic colitis. Verification of patient identification for the specimen was done by the physician and nurse using the patient's name, date and medical record number. Estimated blood loss was minimal. Multiple small-mouthed diverticula were found in the sigmoid colon. There was no evidence of diverticular bleeding. Non-bleeding external and internal hemorrhoids were found during retroflexion. The hemorrhoids were medium-sized. Impression: - The examined portion of the ileum was normal. - Normal mucosa in the entire examined colon. Biopsied. - Mild diverticulosis in the sigmoid colon. There was no evidence of diverticular bleeding. - Non-bleeding external and internal hemorrhoids. Recommendation: - Patient has a contact number available for emergencies. The signs and symptoms of potential delayed complications were discussed with the patient. Return to normal activities tomorrow. Written discharge instructions were provided to the patient. - High fiber diet. - Continue present medications. - Use original regular Metamucil one teaspoon PO daily for 6 weeks. - Await pathology results. - Repeat colonoscopy in 5-10 years for screening purposes. - Telephone GI clinic for pathology results in 2 weeks. - Return to primary care physician. Chuy Garcia MD Chuy Garcia MD 05/07/2020 12:25:57 PM Electronically signed by Chuy Garcia MD Number of Addenda: 0 Note Initiated On: 05/07/2020 11:31 AM Estimated Blood Loss: Estimated blood loss was minimal.
[2020-05-07 12:45] VITALS: BP 132/89
== END 2020-05-07 13:03 | disposition home or self-care (01) ==
LOC: M OPP 09:32
PROVIDERS: ATTEND Internal Medicine Gastroenterology
DX: K57.30 Diverticulosis of large intestine without perforation or abscess without bleeding (principal); K64.8 Other hemorrhoids; K52.9 Noninfective gastroenteritis and colitis, unspecified; K31.7 Polyp of stomach and duodenum; R12 Heartburn; I10 Essential (primary) hypertension; E11.9 Type 2 diabetes mellitus without complications; I71.2 Thoracic aortic aneurysm, without rupture; Z79.82 Long term (current) use of aspirin; Z79.84 Long term (current) use of oral hypoglycemic drugs; Z79.899 Other long term (current) drug therapy; Z91.030 Bee allergy status

== ENCOUNTER → 2020-05-11 | Outpatient (REF) | payer OTHER ==
[~2020-05-11] MED LIST changes: -NS 1,000 ML IV ONE
[2020-05-11 13:22] LABS: PERCENT SATURATION 9.3 % (13.2-45.0)
[2020-05-13 07:07] LABS: IGASUB2 135.8 mg/dL (73.2-301.2); IGASUB3 25.8 mg/dL (13.4-97.9)
[2020-05-20 13:07] LABS: CALPROTECTIN STOOL 53 ug/g (0-120); H PYLORI STOOL ANTIGEN Positive (Negative)
== END ==
LOC: M LAB REF 11:07 → M LABDRAWC 11:07
PROVIDERS: ATTEND Internal Medicine Gastroenterology
DX: K58.0 Irritable bowel syndrome with diarrhea (principal)

== ENCOUNTER → 2020-08-11 | Outpatient (REF) | payer OTHER ==
[2020-08-11 13:35] LABS: BASO # 0.1 10^3/uL (0.0-0.2); BASO % 1.3 % (0.0-1.0); EOS # 0.1 10^3/uL (0.0-0.5); EOS % 3.1 % (0.0-3.0); HEMOGLOBIN 12.9 g/dl (12.0-15.5); LYMPH # 1.7 10^3/uL (1.5-5.0); LYMPH % 37.4 % (24.0-44.0); MEAN CORPUSCULAR HEMOGLOBIN 29.2 pg (27.0-33.0); MEAN CORPUSCULAR HGB CONC 32.3 g/dl (32.0-36.5); MEAN CORPUSCULAR VOLUME 90.5 fl (80.0-96.0); MONO # 0.4 10^3/uL (0.0-0.8); MONO % 8.3 % (0.0-5.0); NEUTROPHILS # 2.2 10^3/uL (1.5-8.5); NEUTROPHILS % 49.2 % (36.0-66.0); PLATELET COUNT, AUTOMATED 297 10^3/uL (150-450); RED BLOOD COUNT 4.42 10^6/uL (4.00-5.40); WHITE BLOOD COUNT 4.5 10^3/uL (4.0-10.0)
[2020-08-11 14:10] LABS: MALB URINE SIEMENS 38.3 MG/L
[2020-08-11 14:12] LABS: ALBUMIN 4.1 GM/DL (3.2-5.2); ALT/SGPT 40 U/L (12-78); BILIRUBIN,TOTAL 0.3 MG/DL (0.2-1.0); BLOOD UREA NITROGEN 19 MG/DL (7-18); CALCIUM LEVEL 9.6 MG/DL (8.5-10.1); CARBON DIOXIDE LEVEL 30 MEQ/L (21-32); CHLORIDE LEVEL 102 MEQ/L (98-107); CHOLESTEROL LEVEL 188 MG/DL (<200); CHOLESTEROL RISK RATIO 8.173 (<5); CREATININE FOR GFR 0.79 MG/DL (0.55-1.30); GLOMERULAR FILTRATION RATE > 60.0 (>58); GLUCOSE, FASTING 122 MG/DL (70-100); HDL CHOLESTEROL 23 MG/DL (>40); IRON (FE) 50 UG/DL (50-170); LDL CHOLESTEROL 86 MG/DL (<100); NON-HDL-C 165 MG/DL; POTASSIUM SERUM 4.2 MEQ/L (3.5-5.1); SODIUM LEVEL 138 MEQ/L (136-145); TOTAL PROTEIN 7.4 GM/DL (6.4-8.2); TRIGLYCERIDES LEVEL 394 MG/DL (<150)
[2020-08-11 14:30] LABS: HEMOGLOBIN A1c 6.6 %
== END ==
LOC: M SFHCCLAY 07:52
PROVIDERS: ATTEND Family Medicine
DX: I10 Essential (primary) hypertension (principal); D50.9 Iron deficiency anemia, unspecified; E11.9 Type 2 diabetes mellitus without complications

== ENCOUNTER → 2020-08-14 | Outpatient (CLI) | payer OTHER ==
[~2020-08-14] MED LIST changes: +ASPI81TA26 PO; +CARV25TA PO; +COLLAGEN BIOTIN PO; +METF500T13 PO; +OMEP40CA97 PO; +SUCR1ORA PO; +THERTAB52 PO
== END ==
LOC: M LABSMTC 08:33
PROVIDERS: ATTEND Anesthesiology
DX: Z01.812 Encounter for preprocedural laboratory examination (principal); Z20.822 Contact with and (suspected) exposure to COVID-19

== ENCOUNTER 2020-08-19 09:12 | Day surgery (SDC) | payer OTHER ==
[~2020-08-19] VITALS: Ht 157.5 cm; Wt 81.2 kg
[~2020-08-19 09:12] MED LIST changes: +NS 1,000 ML IV ONE
--- OUTSIDE RECORDS SUMMARY | 2020-08-19 09:18 | CCD ---
Author Author [facility] Organization [facility] Address Unknown Phone Unavailable Care Team Providers Care Humane Officer Name Role Phone Chase Dodd Unavailable PROBLEMS Type Condition ICD9-CM Code PFN01-CD Code Onset Dates Condition S tatus SNOMED Code Notes Problem Hyperlipemia E78.5 Active 19144986 Problem Diabetes E11.9 Active 67462050 Problem Hypertension I10 Active 11724848 Problem Bicuspid aortic valve with a scending aorta greater than 4.0 cm in diameter Q23.1 Active 14395893 Problem Ascending aortic aneurysm I71.2 Active 134682 007 Problem Bicuspid aortic valve Q23.1 Active 18802636 Problem Kidney stone 592.0 Active 36334201 Problem Iron deficiency anemia D50.9 Active 74367172 Problem Kidney stone N20.0 Active 10379874 Problem Hydronephrosis N13.30 Active 43552849 Problem Irritable bowel syndrome with diarrhea K58.0 A ctive 432142079 ALLERGIES No Known Allergies ENCOUNTERS from 1970 to 2020-05-20 Encounter Location Date Provider Diagnosis [address] [id number] 13 Apr Chase Dodd Diabetes E11.9 ; Hypertension I10 ; Hype rlipemia E78.5 ; Iron deficiency anemia D50.9 ; Irritable bowel syndrome with diarrhea K58.0 ; Left lower quadrant pain R10.32 ; Ascending aortic aneurysm I71.2 ; Bicuspid aortic valve with ascending aorta greater than 4.0 cm in diameter Q23.1 ; Lumbar radiculopathy M54.16 and Arthralgia, unspecified joint M25.50 IMMUNIZATIONS Vaccine Route Administration Date Status Influenza (6mo & up) Fluzone Unknown October 11, 2017 Ref used SOCIAL HISTORY Tobacco Use: Social History Observation Description Date Details (start date - stop date) Never Smoker Sex Assigned At : Social History Observation Description Sex Assigned At Unknown Audit Question Answer Notes Total Score: 2 Interpretation: Alcohol Education Language: Question Answer Notes Languages spoken: Citizen Of [place] Hoahaoism: Question Answer Notes Hoahaoism 21 Mosque Domestic Violence: Question Answer Notes Status: Sexual Hx: Question Answer Notes Had sex in the last 12 months (vaginal, oral, or anal)? Yes Have you ever had an STD? No with Men only Use protection? No Drug and Alcohol Question Answer Notes Total Score: 0 Interpretation: No problems reported Alcohol Screening: Question Answer Notes Did you have a drink containing alcohol in the past year? Ye s Points 3 Interpretation Positive How often did you have six or more drinks on one occas ion in the past year? Less than monthly (1 point) How many drinks did you have on a typica l day when you were drinking in the past year? 3 or 4 (1 point) How often did you have a drink containing alcohol in t he past year? Monthly or less (1 point) BMI Care Goal Follow-Up Question Answer Notes Above Normal BMI Follow-Up Dietary management educatio n, guidance, and counseling Tobacco Use: Question Answer Notes Are you a: never smoker REASON FOR REFERRAL No Information VITAL SIGNS Weight 176.8 lbs Apr, Height 62.5 in Apr, BMI 31.82 kg/m2 Apr, Heart Rate 73 /min Apr, Respiratory Rate 16 /min Apr, Temperature 96.7 degrees Fahrenheit Apr, Oximetry 100ra Apr, Blood pressure systolic 149 mm Hg Apr, Blood pressure diastolic 97 mm Hg Apr, MEDICATIONS Medication SIG (Take, Route, Frequency, Duration) Start Date En d Date Status OneTouch Ultra Blue - as directed In Vitro bid DX E11.9 for 30 days Active Aspirin Adult Low Strength 81 MG 1 tablet Orally Once a day Active Vitamin C 500 MG Orally Three times weekly Active Fenofibrate 160 MG 1 tablet with a meal Orally qd for 30 Active Lisinopril-Hydrochlorothiazide 20-25 MG TAKE ONE TABLE T BY MOUTH EVERY DAY for 30 Active Iron 325 (65 Fe) MG 1 tablet Orally Once a day Active Biotin 5 MG 1 tablet Orally Once a day for 30 day(s) Active One Touch Ultra System Kit A ctive Krill Oil 1000 MG Orally Active Lac-Hydrin Five 5 % 1 application Externally Twice a day for 30 Days November, Active Metformin HCl 500 mg 2 tablet with meals Orally Twice a day for 90 Active Atorvastatin Calcium 10 MG 1 tablet Orally Once a day for 30 Active Multivitamins 1 tablet Orally Once a day Active Carvedilol 25 MG TAKE ONE TABLET BY MOUTH TWICE A DAY WITH FOOD for 30 Active Clotrimazole-Betamethasone 1-0.05 % 1 application to a ffected area Externally Twice a day for 30 days Dec, Active FreeStyle Lite as directed Active Valtrex 1 GM 1 tablet Orally three times daily Dec, Active Metamucil 28.3 % as directed Orally Activ e Omeprazole 40 MG 1 capsule Orally Once a day for 30 Active Dicyclomine HCl 20 MG 1 tablet Orally Three times a day for 30 Days Aug, Active [employer] Syringes _ 1 [id number] as directed Dx E11.9 Active Trulicity 1.5 MG/0.5ML 0.5 ml Subcutaneous Once weekly for 30 day(s ) Active Sucralfate 1 GM 1 tablet on an empty stomach Orally three times a d ay Active PROCEDURES No Information RESULTS No Results REASON FOR VISIT Patient had EGD, Colonoscopy last week with Dr. Garcia MEDICAL (GENERAL) HISTORY Type Description Date Medical History Diabetes with microalbuminuria Medical History Hypertension Medical History Dialated ascending Aorta of bicuspid юлия ve- 4.9 cm Medical History Hyperlipidemia Medical History Kidney stones Medical History GERD Medical History PCOS Surgical History Tubal ligation Surgical History Kidney stone removal X2 Surgical History C section Surgical History Left ESWL 04/16/2013 Surgical History EGD, Colonoscopy- Dr Garcia 04/2020 Hospitalization History Kidney infection Hospitalization History Tonsillectomy Hospitalization History Strep throat Hospitalization History 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 2) Apr, Left lower quadrant pain (ICD-10 - R10.3 2) Apr, Lumbar radiculopathy (ICD-10 - M54.16) Apr, Bicuspid aortic valve with a scending aorta greater than 4.0 cm in diameter (ICD-10 - Q23.1) PLAN OF TREATMENT Medication Medication Name Sig Start Date Stop Date Trulicity 1.5 MG/0.5ML 0.5 ml Subcutaneous Once weekly for 30 da y(s) Treatment Notes Assessment Notes Clinical Notes Diabetes Not as well controll ed, will recheck in 3 months with diet changes. No changes at this time. Pt agreeable. Hypertension Cont current dose of 20/25 and recheck as scheduled. Hyperlipemia Stable and mostly co ntrolled. Iron deficiency anemia Stable- iron is s table though low and Hgb is up a bit, cont daily iron. Irritable bowel syndrome with diarrhea C ont with Dr Garcia, etiology unclear at this time. Left lower quadrant pain She may have IB S, cont dicyclomine. Cont with GI. Pt is agreeable. Ascending aortic aneurysm Cont with Dr Vivek haro. Bicuspid aortic valve with ascending aorta greater than 4.0 cm in diameter Will do referral back to Dr Dean to determine when/if timing of next echo. Pt is agreeable. Lumbar radiculopathy Mostly stable, not quite as bad as previous, some low back pain with radiation, possibly spinal stenosis. Autoimmune workup negative. Arthralgia, unspecified joint Autoimmune workup normal. Future Test Test Name Order Date Comprehensive Metabolic Profile (CMP) [id number] HEMOGLOBIN A1c [id number] LIPID PANEL (CARDIAC RISK) [id number] MICROALBUMIN RANDOM [id number] IRON (FE) [id number] CBC with Differential [id number] Next Appt Details 3 Months Reason:30 minutes Provider Name:Chase Antonia Odomomairatay, 08:00:00 AM, [place], [address], Follow Up:3 [id number] minutes Insurance Providers Payer Name Payer Address Payer Phone Insured Name Patient Relati onship to Insured Coverage Start Date Coverage End Date [facility] [address] [facility] [phone] INO FAGAN self
--- OUTSIDE RECORDS SUMMARY | 2020-08-19 09:18 | CCD | Continuity of Care Document ---
Author Author Stella CARMONA M.D. Organization Unknown Address [address] [place] [address], [address] [place] [address] Phone [phone] Care Team Providers Care General Machine Operator Name Role Phone Chase Dodd D.O.M [phone] Problems Active Problems Provider Date Essential hypertension Onset: 02/13/2020 Social History Type Date Description Comments Sex Unknown ETOH Use Sociable Tobacco Use Start: Unknown Non Smoker Allergies, Adverse Reactions, Alerts Description No Known Drug Allergies Medications Active Medications SIG Qnty Indications Ordering Provide r Date Omeprazole 40mg Capsules DR once daily - take databases software consultant on empty stomach - atleast 1/2 hour before breakfast. (taper off after 6 weeks) 60caps Chuy Carmona M.D. Sucralfate 1GM/10ML Suspension 10 milliliters by mouth after meals, 3 times daily ( if not covered by insurance, please give tablets) 400ml Chuy Carmona M.D. 1 Super Collagen + Vit C + Biotin Tablet 2tabs po qd Unknown Iron 325(65Fe) mg Tablets 1ta b po qd Unknown Vitamin C 500mg Tablets 1tab po qd Unknown Krill Oil 350mg Capsules 1cap po qd Unknown Multivitamin Women Tablets 1tab po qd Unknown Aspirin 81mg Tablets DR 1tab po qd Unknown Atorvastatin Calcium 10mg Tablets 1tab po qd Unknown Fenofibrate 160mg Tablets 1ta b po qd Unknown Carvedilol 25mg Tablets 1tab po bid Unknown Lisinopril-Hydrochlorothiazide 20-25mg Tablets 1tab po qd Unknown Ciprofloxacin HCL 250mg Tablets 1tab po bid Unknown Dicyclomine HCL 20mg Tablets take 1 tablet by mouth 2 to 3 times daily, take atleast 15 minutes before meals (for diarrhea and abdominal cramps) 90tamaggie Carmona M.D. Metformin HCL 500mg Tablets 2tabs po bid Unknown Trulicity 1.5mg/0.5ML Solution Pen -Inject wkly Unknown History Medications Famotidine Maximum Strength 20mg T ablets take one tablet twice daily ( take databases software consultant on empty stomach and at bedtime) for course of 6 weeks 60tabs Chuy early M.D. 05/28/2020 - 07/13/2020 Metamucil 0.52gm Capsules 1 cap by mouth twice a day after meals (adjust dose depending on symptoms) 90caps Chuy Carmona M.D. 05/07/2020 - 07/13/2020 Clenpiq 10-3.5-12mg-GM -GM/160ML S olution follow pre-procedure instructions. start day before procedure. (if not covered by insurance please fill gavilyte script). 320ml Rob Carmona M.D. 04/13/2020 - 05/07/2020 Gavilyte-N With Flavor Pack 420gm Solution Rec drink the liquid as per the pre-procedur e instructions. ( fill this script only if clenpiq is not covered by insurance). 4000ml Chuy Carmona M.D. 04/13/2020 - 05/07/[address] take 4 tablets together as per bowel preparation instructions. 4tamaggie Carmona M.D. 04/13/2020 - 05/07/2020 Immunizations Description No Information Available Vital Signs Date Vital Result Comment 07/14/2020 11:07am BP Systolic 144 mmHg BP Diastolic 82 mmHg Height 62.5 inches 5'2.50" Weight 180.00 lb BMI (Body Mass Index) 32.4 kg/m2 [place] Body Weight 110 lb Weight 81.648 kg BSA (Body Surface Area) 1.84 m2 02/25/2020 12:58pm BP Systolic 136 mmHg BP Diastolic 74 mmHg Height 62.5 inches 5'2.50" Weight 178.00 lb BMI (Body Mass Index) 32.0 kg/m2 [place] Body Weight 110 lb Weight 80.741 kg BSA (Body Surface Area) 1.83 m2 Results Test Acquired Date Facility Test Result H/L Range Note Laboratory test finding 05/11/2020 [facility] [address] [place] [address]24 [phone] Stool Lactoferrin-polys by Ica NEGATIVE Normal 1 Calprotectin Stool 53 ug/g Normal 0-120 2 H Pylori Stool Antigen Positive Abnormal Negative 3 Laboratory test finding 05/11/2020 [facility] [address] [place] [address] 23496 [phone] Tissue Transglutaminase IgA 2 U/mL Normal 0-3 4 Iga Subclasses 05/11/2020 [facility] [address] [place] [address] 82909 [phone] IgA Serum (part of Subclasses) 198 mg/dL Normal 8 7-352 Igasub2 135.8 mg/dL Normal 73.2-301.2 Igasub3 25.8 mg/dL Normal 13.4-97.9 Total Iron Binding Capacit 05/11/2020 [facility] [address] [place] [address] 08105 [phone] Iron (Fe) 46 g/dL Low 50-170 Total Iron Binding Capacity 496 g/dL High 250-450 Percent Saturation 9.3 % Low 13.2-45.0 Laboratory test finding 05/11/2020 [facility] [address] [place] [address] 69317 [phone] Ferritin 12 NG/ML Normal 8-252 Laboratory test finding 05/07/2020 [facility] [address] [place] [address] 95047 [phone] Pathology Request For Service (SEE NOTE) 5 Laboratory test finding 05/07/2020 [facility] [address] [place] [address] 89923 [phone] Bedside Glucose 103 mg/dL Normal 70-105 1 2 Concentration Interpreta tion Follow-Up <16 - 50 ug/g Normal None >50 -120 ug/g Borderline Re-evaluate in 4-6 weeks >120 ug/g Abnormal Repeat as clinically indicated 3 Performed at: [address] [id number] Industry Consultant: Catarino Hernandez MD, Phone: [phone] Performed at: [address] [id number] Industry Consultant: Galina Whiting MD, Phone: [phone] 4 Negative 0 - 3 Weak Positive 4 - 10 Positive >10 . Tissue Transglutaminase (tTG) has been identified as the endomysial antigen. Studies have demonstr- ated that endomysial IgA antibodies have over 99% specificity for gluten sensitive enteropathy. Performed at: [address] [id number] Industry Consultant: Galina Whiting MD, Phone: [phone] Performed at: [address] [id number] Industry Consultant: Catarino Hernandez MD, Phone: [phone] FINAL DIAGNOSIS A - Small bowel, biopsy: Small bowel mucosa with villous architecture. No evidence of celiac disease. B - Stomach, biopsy: Gastric mucosa with no significant pathologic changes. No H. pylori like organisms on H & E stain. C - Stomach, polyp, polypectomy: Fundic gland polyp with mixed features of hyperplastic polyp. No H. pylori like organisms on H & E stain. No evidence of dysplasia. D - Colon, random biopsies: One fragment of tubular adenoma. No evidence of microscopic colitis. 05/10/2020 - 1431 CLINICAL DIAGNOSIS Gastric reflux, chronic diarrhea 05/10/2020 - 804 GROSS DIAGNOSIS A - Received in formalin labeled "biopsy small bowel R/O celiac" and are three fragments of ivan tissue measuring 0.5 x 0.3 x 0.2 cm. All in one. B - Received in formalin labeled "gastric biopsy R/O H. pylori" and are two fragments 0.4 x 0.2 x 0.2 cm. All in one. C - Received in formalin labeled "gastric polyp polypectomy" and is one polypoid ivan tissue 1.2 x 1.2 x 1.0 cm. All in one. D - Received in formalin labeled "random colon biopsies R/O microscopic colitis" and are multiple fragments 0.4 x 0.3 x 0.2 cm. All in one. -SV 05/10/2020 - 0805 Signed BETHANY BROCK MD 05/11/2020 1007 Procedures Date Code Description Status 05/07/2020 05227 Colonoscopy Flexible Proximal To Splenic Flexure W/Biopsy Single/ Completed 05/07/2020 87862 Endoscopy Upper GI Remove Tumor/ Polyp/Lesion Snare Technique Completed Medical Devices Description No Information Available Encounters Type Date Location Provider Dx Diagnosis Office Visit 02/25/2020 8:30a [facility] Damian Carmona M.D. R19.7 Diarrhea, unspecified R10.30 Lower abdominal pain, unspec ified K21.9 Gastro-esophageal reflux dis ease without esophagitis Assessments Date Code Description Provider 07/14/2020 R19.7 Diarrhea, unspecified Chuy Carmona M.D. 07/14/2020 R12 Heartburn Chuy Sheppard ala, M.D. 07/14/2020 K58.0 Irritable bowel syndrome with di arrhea Chuy Carmona M.D. 05/07/2020 R19.7 Diarrhea, unspecified Chuy Carmona M.D. 05/07/2020 K57.30 Diverticulosis of la rge intestine without perforation or abscess without bleeding Chuy Carmona M.D. 05/07/2020 K64.8 Other hemorrhoids Chuy garcia M.D. 05/07/2020 R12 Heartburn Chuy Sheppard ala, M.D. 05/07/2020 K31.7 Polyp of stomach and duodenum Khai Carmona M.D. 02/25/2020 R19.7 Diarrhea, unspecified Chuy Carmona M.D. 02/25/2020 R10.30 Lower abdominal pain, unspecifie d Chuy Carmona M.D. 02/25/2020 K21.9 Gastro-esophageal reflux disease without esophagitis Chuy Carmona M.D. Plan of Treatment 07/14/2020 - Chuy Chandrala, M.D.* R19.7 Diarrhea, unspecified * R12 Heartburn * K58.0 Irritable bowel syndrome with diarrhea * * Comments:* Impression:-- Tubular adenoma of colon - needs surveillance colonosocpy in 2021.-- Colonic diverticulosis -- needs high fibre diet. Functional Status Description No Information Available Mental Status Description No Information Available Referrals Refer to Reason for Referral Status Appt Date Chuy Carmona M.D. [id number] [id number] [place] [address], [place] [address] [phone]
--- OUTSIDE RECORDS SUMMARY | 2020-08-19 09:18 | CCD ---
Author Author [facility] Organization [facility] Address Unknown Phone Unavailable Care Team Providers Care Book Cleaner Name Role Phone Bradly Hughes Unavailable PROBLEMS Type Condition ICD9-CM Code XVR57-DD Code Onset Dates Condition S tatus SNOMED Code Notes Problem Iron deficiency anemia, unspecified D50.9 Acti ve 01262987 Problem Essential (primary) hypertension I10 Active 55853600 Problem Thoracic aneurysm without mention of rupture 441.2 Active 86046316 Problem Atherosclerosis of both lowe r extremities with intermittent claudication I70.213 Active 87940849 Problem Other hyperlipidemia E78.4 Active 24643843 Problem Type 2 diabetes mellitus without complications E11 .9 Active 390301990 ALLERGIES No Known Allergies ENCOUNTERS from 1971 to 2020-08-04 Encounter Location Date Provider Diagnosis [facility] [address] [place] [address] 2019 Bradly Hughes Encounter for gynecological examination (general) (routine) without abnormal findings Z01.419 and Encounter for screening mammogram for malignant neoplasm of breast Z12.31 IMMUNIZATIONS Vaccine Route Administration Date Status INFLUENZA 3 YRS AND OLDER Preservative free IM Intramuscular Jun 02, 2013 Administered IM Intramuscular Aug 13, 2012 Administered Influenza preservative free IM Intramuscular Jun 13, 2011 Adm inistered SOCIAL HISTORY Sex Assigned At : Social History Observation Description Sex Assigned At Unknown REASON FOR REFERRAL No Information VITAL SIGNS Height 61.5 in Jun, Weight 179.6 lbs Jun, BMI 33.38 kg/m2 Jun, Heart Rate 74 /min Jun, Respiratory Rate 16 /min Jun, Oximetry 98 % Jun, Blood pressure systolic 124 mmHg Jun, Blood pressure diastolic 80 mmHg Jun, MEDICATIONS Medication SIG (Take, Route, Frequency, Duration) Notes Start Da te End Date Status Carvedilol 25 MG 1 tablet with food Orally Twice a day for 30 days Active Vitamin C 1000 MG 1 tablet Orally Once a day Active Lisinopril-Hydrochlorothiazide 20-12.5 MG 1 tablet Orally Once a day Active Multivitamins 1 tablet Orally Once a day Active Iron 325 (65 Fe) MG 1 tablet Orally once a day Active Dicyclomine HCl 20 MG 1 tablet Orally Three times a day for 30 day(s) Active Metformin HCl 500 MG 2 tablets Orally Twice a day for 30 days Active Atorvastatin Calcium 10 MG 1 tablet Orally Once a day for 30 Active Omeprazole 40 MG 1 capsule Orally Once a day for 90 days Active Sucralfate 1 GM 1 tablet on an empty stomach Orally Three times a day Active Aspirin 81 MG 1 tablet Orally Once a day for 30 day(s) Active Krill Oil 1000 MG as directed Orally DAILY Active Fenofibrate 160 MG 1 tablet Orally Once a day for 30 days Aug, Active Trulicity Active PROCEDURES No Information RESULTS No Results REASON FOR VISIT WWE MEDICAL (GENERAL) HISTORY Type Description Date Medical History DM Medical History HTN Medical History Dyslipidemia Medical History PCOS Medical History Nephrolithiasis Medical History Microalbuminuria Medical History Dilated ascending aorta- 4.6 cm 2014 Medical History IBS Surgical History Tubal ligation 2006 Surgical History Kidney stone removal Surgical History C/S x 2 Hospitalization History Surgical Needs Goals Section No Information Health Concerns No Information MEDICAL EQUIPMENT No Information MENTAL STATUS No Information FUNCTIONAL STATUS No Information ASSESSMENTS Encounter Date Diagnosis Assessment Notes Treatment Notes Treatm ent Clinical Notes Jun, Encounter for gynecological examination (general) (routine) without abnormal findings (ICD-10 - Z01.419) We'll attempt to obtain the patient's mammogram from December. She is asked to contact us if she has any problems or questions. Jun, Encounter for screening mamm ogram for malignant neoplasm of breast (ICD-10 - Z12.31) Jun, Other Discussed the im portance of adequate calcium intake, exercise and self breast exam with patient. Hand out with instructions for self breast exam was offered to the patient. Recommend routine yearly exam. Patient agrees with above plan. PLAN OF TREATMENT Treatment Notes Assessment Notes Clinical Notes Encounter for gynecological examination (general) (routine) without abnormal findings We'll attempt to obtain the patient's ma mmogram from December. She is asked to contact us if she has any problems or questions. Next Appt Details Provider Name:Bradly Hughes, 2021-07-21 10:00:00 AM, [address] [place] [address], [id number], Insurance Providers Payer Name Payer Address Payer Phone Insured Name Patient Relati onship to Insured Coverage Start Date Coverage End Date [employer] [address] [facility] [id number] Stella Fagan
--- OUTSIDE RECORDS SUMMARY | 2020-08-19 09:18 | CCD ---
Author Author [facility] Organization [facility] Address Unknown Phone Unavailable Care Team Providers Care Business Support Professional Name Role Phone Chase Dodd Unavailable PROBLEMS Type Condition ICD9-CM Code [id number] Code Onset Dates Condition S tatus SNOMED Code Notes Problem Hyperlipemia E78.5 Active 79381413 Problem Diabetes E11.9 Active 68652331 Problem Hypertension I10 Active 97800906 Problem Bicuspid aortic valve with a scending aorta greater than 4.0 cm in diameter Q23.1 Active 95081764 Problem Ascending aortic aneurysm I71.2 Active 421403 007 Problem Bicuspid aortic valve Q23.1 Active 34548829 Problem Kidney stone 592.0 Active 31680227 Problem Iron deficiency anemia D50.9 Active 70596753 Problem Kidney stone N20.0 Active 53407013 Problem Hydronephrosis N13.30 Active 58149121 Problem Irritable bowel syndrome with diarrhea K58.0 A ctive 693829235 ALLERGIES No Known Allergies ENCOUNTERS from 1971 to 2020-08-17 Encounter Location Date Provider Diagnosis [address] [address] Jul Chase Dodd IMMUNIZATIONS Vaccine Route Administration Date Status Influenza (6mo & up) Fluzone Unknown October 11, 2017 Ref used SOCIAL HISTORY Tobacco Use: Social History Observation Description Date Details (start date - stop date) Never Smoker Sex Assigned At : Social History Observation Description Sex Assigned At Unknown Audit Question Answer Notes Total Score: 2 Interpretation: Alcohol Education Language: Question Answer Notes Languages spoken: [place] Islander Oriental Orthodox: Question Answer Notes Oriental Orthodox [employer] Domestic Violence: Question Answer Notes Status: Sexual [...] REASON FOR REFERRAL No Information VITAL SIGNS No information MEDICATIONS Medication SIG (Take, Route, Frequency, Duration) Notes Start Da te End Date Status Sucralfate 1 GM 1 tablet on an empty stomach Orally three times a day Active OneTouch Ultra - as directed In Vitro Daily for 90 day(s) Jul, Active Krill Oil 1000 MG Orally Active OneTouch Ultra Blue - as directed In Vitro bid DX E11.9 for 30 days Active Atorvastatin Calcium 10 MG 1 tablet Orally Once a day for 30 Active Trulicity 1.5 MG/0.5ML 0.5 ml Subcutaneous Once weekly for 30 day(s) Active Lisinopril-Hydrochlorothiazide 20-25 MG TAKE ONE TABLE T BY MOUTH EVERY DAY for 30 Active Omeprazole 40 MG 1 capsule Orally Once a day for 30 Active Carvedilol 25 MG TAKE ONE TABLET BY MOUTH TWICE A DAY WITH FOOD for 3 0 Active [employer] Syringes _ 1 [id number] as directed Dx E11.9 Active Valtrex 1 GM 1 tablet Orally three times daily Dec, 8 Active Multivitamins 1 tablet Orally Once a day Active Dicyclomine HCl 20 MG 1 tablet Orally Three times a day for 30 D ays Aug, Active FreeStyle Lite as directed Active Biotin 5 MG 1 tablet Orally twice a day Active Vitamin C 500 MG Orally Three times weekly Active Fenofibrate 160 MG 1 tablet with a meal Orally qd for 30 Active Clotrimazole-Betamethasone 1-0.05 % 1 application to a ffected area Externally Twice a day for 30 days Dec, Active Lac-Hydrin Five 5 % 1 application Externally Twice a day for 30 Days November, Active Iron 325 (65 Fe) MG 1 tablet Orally Once a day Active Aspirin Adult Low Strength 81 MG 1 tablet Orally Once a day Active One Touch Ultra System Kit E11.9 daily for 90 day(s) Active Trulicity 1.5 MG/0.5ML INJECT 0.5ML UNDER THE SKIN ONCE WEEKLY for 28 Active Metformin HCl 500 mg 2 tablet with meals Orally Twice a day for 90 Active PROCEDURES No Information RESULTS No Results REASON FOR VISIT script MEDICAL (GENERAL) HISTORY Type Description Date Medical History Diabetes with microalbuminuria Medical History Hypertension Medical History Dialated ascending Aorta of bicuspid юлия ve- 4.9 cm Medical History Hyperlipidemia Medical History Kidney stones Medical History GERD Medical History PCOS Surgical History Tubal ligation Surgical History Kidney stone removal X2 Surgical History C section Surgical History Left ESWL 04/16/2013 Surgical History EGD, Colonoscopy- Dr Garcia- stomach polyps 04/2020 Hospitalization History Kidney infection Hospitalization History Tonsillectomy Hospitalization History Strep throat Hospitalization History Epiglotitis in high school Goals Section No Information Health Concerns No Information MEDICAL EQUIPMENT No Information MENTAL STATUS No Information FUNCTIONAL STATUS No Information ASSESSMENTS No Information PLAN OF TREATMENT Medication Medication Name Sig Start Date Stop Date Trulicity 1.5 MG/0.5ML 0.5 ml Subcutaneous Once weekly for 30 da y(s) One Touch Ultra System Kit E11.9 daily for 90 day(s) StormWind Ultra - as directed In Vitro Daily for 90 day(s) Jul Next Appt Details Provider Name:Chase Dodd, 08:00:00 AM, [address] [place], [address], Insurance Providers Payer Name Payer Address Payer Phone Insured Name Patient Relati onship to Insured Coverage Start Date Coverage End Date [facility] [employer] [facility] [address] [facility] [phone] INO FAGAN self
--- OUTSIDE RECORDS SUMMARY | 2020-08-19 09:19 | CCD ---
Author Author [facility] Organization [facility] Address Unknown Phone Unavailable Care Team Providers Care Rn Medication Name Role Phone Chavez, W Kate RPA-C Unavailable Unavailable Chavez, W Kate RPA-C Unavailable Unavailable Chavez, W Kate RPA-C Unavailable Unavailable Chavez, W Kate RPA-C Unavailable Unavailable Chavez, W Kate RPA-C Unavailable Unavailable Chavez, W Kate RPA-C Unavailable Unavailable Chavez, W Kate RPA-C Unavailable Unavailable Chavez, W Kate RPA-C Unavailable Unavailable Chavez, W Kate RPA-C Unavailable Unavailable Chavez, W Kate RPA-C Unavailable Unavailable Chavez, W Kate RPA-C Unavailable Unavailable Chavez, W Kate RPA-C Unavailable Unavailable Chavez, W Kate RPA-C Unavailable Unavailable Chavez, W Kate RPA-C Unavailable Unavailable Chavez, W Kate RPA-C Unavailable Unavailable Chavez, W Kate RPA-C Unavailable Unavailable LOWAgatha PA Unavailable Unavailable LOWAgatha PA Unavailable Unavailable LOWAgatha PA Unavailable Unavailable LOWAgatha PA Unavailable Unavailable LOWAgatha PA Unavailable Unavailable LOWAgatha PA Unavailable Unavailable LOWAgatha PA Unavailable Unavailable LOW, Agatha MURRAY PA Unavailable Unavailable LOW, Agatha MURRAY PA Unavailable Unavailable LOWAgatha PA Unavailable Unavailable LOW, Agatha MURRAY PA Unavailable Unavailable LOW, Agatha MURRAY PA Unavailable Unavailable LOWAgatha PA Unavailable Unavailable LOW, Agatha MURRAY PA Unavailable Unavailable LOW, L TERRI PA Unavailable Unavailable LOW, L TERRI PA Unavailable Unavailable LOW, L TERRI PA Unavailable Unavailable LOW, Agatha MURRAY PA Unavailable Unavailable LOW, Agatha MURRAY PA Unavailable Unavailable HUIZENGA, Antonia JOHANSEN DO Unavailable Unavailable HUIZENGA, Antonia JOHANSEN DO Unavailable Unavailable HUIZENGA, Antonia JOHANSEN DO Unavailable Unavailable HUIZENGA, Antonia JOHANSEN DO Unavailable Unavailable HUIZENGA, Antonia JOHANSEN DO Unavailable Unavailable HUIZENGA, Antonia JOHANSEN DO Unavailable Unavailable HUIZENGA, Antonia JOHANSEN DO Unavailable Unavailable HUIZENGA, Antonia JOHANSEN DO Unavailable Unavailable HUIZENGA, Antonia JOHANSEN DO Unavailable Unavailable HUIZENGA, Antonia JOHANSEN DO Unavailable Unavailable HUIZENGA, Antonia JOHANSEN DO Unavailable Unavailable HUIZENGA, Antonia JOHANSEN DO Unavailable Unavailable HUIZENGA, Antonia JHOANSEN DO Unavailable Unavailable HUIZENGA, Antonia JOHANSEN DO Unavailable Unavailable HUIZENGA, Antonia JOHANSEN DO Unavailable Unavailable HUIZENGA, Antonia JOHANSEN DO Unavailable Unavailable HUIZENGA, Antonia JOHANSEN DO Unavailable Unavailable HUIZENGA, Antonia JOHANSEN DO Unavailable Unavailable HUIZENGA, Antonia JOHANSEN DO Unavailable Unavailable HUIZENGA, Antonia JOHANSEN DO Unavailable Unavailable HUIZENGA, Antonia JOHANSEN DO Unavailable Unavailable HUIZENGA, Antonia JOHANSEN DO Unavailable Unavailable HUIZENGA, Antonia JOHANSEN DO Unavailable Unavailable HUIZENGA, Antonia JOHANSEN DO Unavailable Unavailable HUIZENGA, Antonia JOHANSEN DO Unavailable Unavailable HUIZENGA, Antonia JOHANSEN DO Unavailable Unavailable HUIZENGA, Antonia JOHANSEN DO Unavailable Unavailable HUIZENGA, Antonia JOHANSEN DO Unavailable Unavailable HUIZENGA, Antonia JOHANSEN DO Unavailable Unavailable HUIZENGA, Antonia JOHANSEN DO Unavailable Unavailable HUIZENGA, Antonia JOHANSEN DO Unavailable Unavailable HUIZENGA, Antonia JOHANSEN DO Unavailable Unavailable HUIZENGA, Antonia JOHANSEN DO Unavailable Unavailable HUIZENGA, Antonia JOHANSEN DO Unavailable Unavailable HUIZENGA, Antonia JOHANSEN DO Unavailable Unavailable HUIZENGA, Antonia JOHANSEN DO Unavailable Unavailable HUIZENGA, Antonia JOHANSEN DO Unavailable Unavailable HUIZENGA, Antonia JOHANSEN DO Unavailable Unavailable HUIZENGA, Antonia JOHANSEN DO Unavailable Unavailable HUIZENGA, Antonia JOHANSEN DO Unavailable Unavailable HUIZENGA, Antonia JOHANSEN DO Unavailable Unavailable HUIZENGA, Antonia JOHANSEN DO Unavailable Unavailable HUIZENGA, Antonia JOHANSEN DO Unavailable Unavailable HUIZENGA, D HAILY DO Unavailable Unavailable HUIZENGA, Antonia JOHANSEN DO Unavailable Unavailable HUIZENGA, Antonia CAMPOSON DO Unavailable Unavailable HUIZENGA, Antonia CAMPOSON DO Unavailable Unavailable HUIZENGA, Antonia CAMPOSON DO Unavailable Unavailable HUIZENGA, Antonia JOHANSEN DO Unavailable Unavailable HUIZENGA, Antonia JOHANSEN DO Unavailable Unavailable HUIZENGA, Atnonia JOHANSEN DO Unavailable Unavailable HUIZENGA, Antonia JOHANSEN DO Unavailable Unavailable HUIZENGA, Antonia JOHANSEN DO Unavailable Unavailable HUIZENGA, Antonia JOHANSEN DO Unavailable Unavailable HUIZENGA, Antonia JOHANSEN DO Unavailable Unavailable HUIZENGA, Antonia JOHANSEN DO Unavailable Unavailable HUIZENGA, Antonia JOHANSEN DO Unavailable Unavailable HUIZENGA, Antonia CAMPOSON DO Unavailable Unavailable HUIZENGA, Antonia JOHANSEN DO Unavailable Unavailable HUIZENGA, Antonia CAMPOSON DO Unavailable Unavailable HUIZENGA, Antonia JOHANSEN DO Unavailable Unavailable HUIZENGA, Antonia JOHANSEN DO Unavailable Unavailable HUIZENGA, Antonia JOHANSEN DO Unavailable Unavailable HUIZENGA, Antonia JOHANSEN DO Unavailable Unavailable HUIZENGA, Antonia JOHANSEN DO Unavailable Unavailable HUIZENGA, Antonia JOHANSEN DO Unavailable Unavailable HUIZENGA, Antonia JOHANSEN DO Unavailable Unavailable HUIZENGA, Antonia JOHANSEN DO Unavailable Unavailable HUIZENGA, Antonia CAMPOSON DO Unavailable Unavailable HUIZENGA, Antonia CAMPOSON DO Unavailable Unavailable HUIZENGA, Antonia CAMPOSON DO Unavailable Unavailable HUIZENGA, Antonia JOHANSEN DO Unavailable Unavailable RACIEL, JESÚS PA Unavailable Unavailable RACIEL, JESÚS PA Unavailable Unavailable RACIEL, JESÚS PA Unavailable Unavailable RACIEL, JESÚS PA Unavailable Unavailable RACIEL, JESÚS PA Unavailable Unavailable RACIEL, JESÚS PA Unavailable Unavailable RACIEL, JESÚS PA Unavailable Unavailable RACIEL, JESÚS PA Unavailable Unavailable RACIEL, JESÚS PA Unavailable Unavailable RACIEL, JESÚS PA Unavailable Unavailable RACIEL, JESÚS PA Unavailable Unavailable RACIEL, JESÚS PA Unavailable Unavailable RACIEL, JESÚS PA Unavailable Unavailable RACIEL, JESÚS PA Unavailable Unavailable RACIEL, JESÚS PA Unavailable Unavailable Jose Rafael DIXON Unavailable Unavailable Jose Rafael DIXON Unavailable Unavailable Jose Rafael DIXON Unavailable Unavailable Jose Rafael DIXON Unavailable Unavailable Jose Rafael DIXON Unavailable Unavailable Jose Rafael DIXON Unavailable Unavailable Jose Rafael DIXON Unavailable Unavailable Jose Rafael DIXON Unavailable Unavailable Jose Rafael DIXON Unavailable Unavailable Jose Rafael DIXON Unavailable Unavailable Jose Rafael DIXON Unavailable Unavailable Jose Rafael DIXON Unavailable Unavailable Jose Rafael DIXON Unavailable Unavailable Jose Rafael DIXON Unavailable Unavailable Jose Rafael DIXON Unavailable Unavailable Jose Rafael HOGAN MD Unavailable Unavailable Jose Rafael HOGAN MD Unavailable Unavailable Jose Rafael HOGAN MD Unavailable Unavailable Jose Rafael HOGAN MD Unavailable Unavailable Jose Rafael HOGAN MD Unavailable Unavailable Jose Rafael HOGAN MD Unavailable Unavailable Jose Rafael HOGAN MD Unavailable Unavailable Jose Rafael HOGAN MD Unavailable Unavailable Jose Rafael HOGAN MD Unavailable Unavailable Jose Rafael HOGAN MD Unavailable Unavailable Jose Rafael HOGAN MD Unavailable Unavailable Jose Rafael HOGAN MD Unavailable Unavailable Jose Rafael HOGAN MD Unavailable Unavailable Jose Rafael HOGAN MD Unavailable Unavailable Jose Rafael HOGAN MD Unavailable Unavailable Jose Rafael HOGAN MD Unavailable Unavailable Jose Rafael HOGAN MD Unavailable Unavailable Jose Rafael HOGAN MD Unavailable Unavailable Jose Rafael HOGAN MD Unavailable Unavailable Jose Rafael HOGAN MD Unavailable Unavailable Jose Rafael HOGAN MD Unavailable Unavailable Jose Rafael HOGAN MD Unavailable Unavailable Jose Rafael HOGAN MD Unavailable Unavailable Jose Rafael HOGAN MD Unavailable Unavailable Jose Rafael HOGAN MD Unavailable Unavailable Jose Rafael HOGAN MD Unavailable Unavailable Jose Rafael HOGAN MD Unavailable Unavailable Jose Rafael HOGAN MD Unavailable Unavailable Jose Rafael HOGAN MD Unavailable Unavailable Jose Rafael HOGAN MD Unavailable Unavailable Jose Rafael HOGAN MD Unavailable Unavailable Jose Rafael HOGAN MD Unavailable Unavailable Jose Rafael HOGAN MD Unavailable Unavailable Jose Rafael HOGAN MD Unavailable Unavailable HARJEET DIXON MD Unavailable Unavailable HARJEET DIXON MD Unavailable Unavailable HARJEET DIXON MD Unavailable Unavailable HARJEET DIXON MD Unavailable Unavailable HARJEET DIXON MD Unavailable Unavailable HARJEET DIXON MD Unavailable Unavailable HARJEET DIXON MD Unavailable Unavailable HARJEET DIXON MD Unavailable Unavailable HARJEET DIXON MD Unavailable Unavailable HARJEET DIXON MD Unavailable Unavailable DESTINY, PRYJNAVNEET SKY MD Unavailable Unavailable DESTINY, PRYJNAVNEET SKY MD Unavailable Unavailable DESTINY, PRYJNAVNEET SKY MD Unavailable Unavailable DESTINY, PRYJMA ASYA MD Unavailable Unavailable DESTINY, PRYJNAVNEET SKY MD Unavailable Unavailable DESTINY, PRYJMA ASYA MD Unavailable Unavailable DESTINY, PRYJMA ASYA MD Unavailable Unavailable DESTINY, PRYJMA ASYA MD Unavailable Unavailable DESTINY, PRYJMA ASYA MD Unavailable Unavailable DESTINY, PRYJMA ASYA MD Unavailable Unavailable DESTINY, PRYJMA ASYA MD Unavailable Unavailable DESTINY, PRYJMA ASYA MD Unavailable Unavailable DESTINY, PRYJMA ASYA MD Unavailable Unavailable DESTINY, PRYJMA ASYA MD Unavailable Unavailable DESTINY, PRYJMA ASYA MD Unavailable Unavailable DESTINY, PRYJMA ASYA MD Unavailable Unavailable DESTINY, PRYJMA ASYA MD Unavailable Unavailable DESTINY, PRYJMA ASYA MD Unavailable Unavailable TONTARSKI, G RADHA PA Unavailable Unavailable TONTARSKI, G RADHA PA Unavailable Unavailable TONTARSKI, G RADHA PA Unavailable Unavailable TONTARSKI, G RADHA PA Unavailable Unavailable TONTARSKI, G RADHA PA Unavailable Unavailable TONTARSKI, G RADHA PA Unavailable Unavailable TONTARSKI, G RADHA PA Unavailable Unavailable TONTARSKI, G RADHA PA Unavailable Unavailable TONTARSKI, G RADHA PA Unavailable Unavailable TONTARSKI, G RADHA PA Unavailable Unavailable TONTARSKI, G RADHA PA Unavailable Unavailable TONTARSKI, G RADHA PA Unavailable Unavailable TONTARSKI, G RADHA PA Unavailable Unavailable TONTARSKI, G RADHA PA Unavailable Unavailable TONTARSKI, G RADHA PA Unavailable Unavailable TONTARSKI, G RADHA PA Unavailable Unavailable TONTARSKI, G RADHA PA Unavailable Unavailable TONTARSKI, G RADHA PA Unavailable Unavailable TONTARSKI, G RADHA PA Unavailable Unavailable TONTARSKI, G RADHA PA Unavailable Unavailable TONTARSKI, G RADHA PA Unavailable Unavailable TONTARSKI, G RADHA PA Unavailable Unavailable TONTARSKI, G RADHA PA Unavailable Unavailable TONTARSKI, G RADHA PA Unavailable Unavailable TONTARSKI, G RADHA PA Unavailable Unavailable TONTARSKI, G RADHA PA Unavailable Unavailable TONTARSKI, G RADHA PA Unavailable Unavailable TONTARSKI, G RADHA PA Unavailable Unavailable TONTARSKI, G RADHA PA Unavailable Unavailable TONTARSDIYA, G RADHA PA Unavailable Unavailable TONTARSKI, G RADHA PA Unavailable Unavailable TONTARSKI, G RADHA PA Unavailable Unavailable TONTARSKI, G RADHA PA Unavailable Unavailable TONTARSKI, G RADHA PA Unavailable Unavailable TONTARSKI, G RADHA PA Unavailable Unavailable TONTARSKI, G RADHA PA Unavailable Unavailable TONTARSKI, G RADHA PA Unavailable Unavailable TONTARSKI, G RADHA PA Unavailable Unavailable TONTARSKI, G RADHA PA Unavailable Unavailable TONTARSDIYA, G RADHA PA Unavailable Unavailable TONTARSDIYA, G RADHA PA Unavailable Unavailable TONTARSDIYA, G RADHA PA Unavailable Unavailable TONTARSKI, G RADHA PA Unavailable Unavailable TONTARSDIYA, G RADHA PA Unavailable Unavailable TONTARSDIYA, G RADHA PA Unavailable Unavailable TONTARSDIYA, G RADHA PA Unavailable Unavailable TONTARSDIYA, G RADHA PA Unavailable Unavailable Lore, Catarino Shamir Hernandeze LIQUOR MAKER-C Unavailable Unavailabl e Lore, Regdane W Michelle LIQUOR MAKER-C Unavailable Unavailabl e Lore, Regdane W Michelle LIQUOR MAKER-C Unavailable Unavailabl e Lore, Regdane W Michelle LIQUOR MAKER-C Unavailable Unavailabl e Lore, Regdane W Michelle LIQUOR MAKER-C Unavailable Unavailabl e Lore, Regdane W Michelle LIQUOR MAKER-C Unavailable Unavailabl e Lore, Regdane W Michelle LIQUOR MAKER-C Unavailable Unavailabl e Lore, Jovitataras Martinez LIQUOR MAKER-C Unavailable Unavailabl e Lore, Regnasirtaras W Michelle LIQUOR MAKER-C Unavailable Unavailabl e Lore, Regdane W Michelle LIQUOR MAKER-C Unavailable Unavailabl e Lore, Regnasirtaras W Michelle LIQUOR MAKER-C Unavailable Unavailabl e Lore, Regnasirtaras W Michelle LIQUOR MAKER-C Unavailable Unavailabl e Lore, Bhanuinataras W Michelle LIQUOR MAKER-C Unavailable Unavailabl e Lore, Reginataras W Michelle LIQUOR MAKER-C Unavailable Unavailabl e Lore, Reginataras W Michelle LIQUOR MAKER-C Unavailable Unavailabl e Lore, Reginataras W Michelle LIQUOR MAKER-C Unavailable Unavailabl e Lore, Reginataras W Michelle LIQUOR MAKER-C Unavailable Unavailabl e Lore, Reginataras W Michelle LIQUOR MAKER-C Unavailable Unavailabl e Lore, Reginataras W Michelle LIQUOR MAKER-C Unavailable Unavailabl e Lore, Reginataras W Michelle LIQUOR MAKER-C Unavailable Unavailabl e Lore, Reginataras W Michelle LIQUOR MAKER-C Unavailable Unavailabl e Lore, Catarino W Michelle LIQUOR MAKER-C Unavailable Unavailabl e Lore, Catarino W Michelle LIQUOR MAKER-C Unavailable Unavailabl e Lore, Catarino W Michelle LIQUOR MAKER-C Unavailable Unavailabl e Lore, Bhanuinataras W Michelle LIQUOR MAKER-C Unavailable Unavailabl e Lore, Reginataras W Michelle LIQUOR MAKER-C Unavailable Unavailabl e Lore, Reginataras W Michelle LIQUOR MAKER-C Unavailable Unavailabl e Lore, Regdane W Michelle LIQUOR MAKER-C Unavailable Unavailabl e Lore, Reginataras W Michelle LIQUOR MAKER-C Unavailable Unavailabl e Lore, Reginataras W Michelle LIQUOR MAKER-C Unavailable Unavailabl e Lore, Regdane W Michelle LIQUOR MAKER-C Unavailable Unavailabl e Lore, Reginataras W Michelle LIQUOR MAKER-C Unavailable Unavailabl e Shamir HERNDON Unavailable Unavailable Shamir HERNDON Unavailable Unavailable Shamir HERNDON Unavailable Unavailable Shamir HERNDON Unavailable Unavailable Shamir HERNDON Unavailable Unavailable Shamir HERNDON Unavailable Unavailable Shamir HERNDON Unavailable Unavailable Shamir HERNDON Unavailable Unavailable Shamir HERNDON Unavailable Unavailable Shamir HERNDON Unavailable Unavailable Shamir HERNDON Unavailable Unavailable Shamir HERNDON Unavailable Unavailable HERNDON, W GLENNY PA Unavailable Unavailable HERNDON, W GLENNY PA Unavailable Unavailable HERNDON, W GLENNY PA Unavailable Unavailable HERNDON, W GLENNY PA Unavailable Unavailable HERNDON, W GLENNY PA Unavailable Unavailable HERNDON, W GLENNY PA Unavailable Unavailable HERNDON, W GLENNY PA Unavailable Unavailable HERNDON, W GLENNY PA Unavailable Unavailable HERNDON, W GLENNY PA Unavailable Unavailable HERNDON, W GLENNY PA Unavailable Unavailable HERNDON, W GLENNY PA Unavailable Unavailable HERNDON, W GLENNY PA Unavailable Unavailable HERNDON, W GLENNY PA Unavailable Unavailable HERNDON, W GLENNY PA Unavailable Unavailable HERNDON, W GLENNY PA Unavailable Unavailable HERNDON, W GLENNY PA Unavailable Unavailable HERNDON, W GLENNY PA Unavailable Unavailable HERNDON, W GLENNY PA Unavailable Unavailable HERNDON, W GLENNY PA Unavailable Unavailable HERNDON, W GLENNY PA Unavailable Unavailable HERNDON, W GLENNY PA Unavailable Unavailable HERNDON, W GLENNY PA Unavailable Unavailable HERNDON, W GLENNY PA Unavailable Unavailable HERNDON, W GLENNY PA Unavailable Unavailable HERNDON, W GLNENY PA Unavailable Unavailable HERNDON, W GLENNY PA Unavailable Unavailable HERNDON, W GLENNY PA Unavailable Unavailable HERNDON, W GLENNY PA Unavailable Unavailable HERNDON, W GLENNY PA Unavailable Unavailable HERNDON, W GLENNY PA Unavailable Unavailable HERNDON, W GLENNY PA Unavailable Unavailable HERNDON, W GLENNY PA Unavailable Unavailable HERNDNO, W GLENNY PA Unavailable Unavailable HERNDON, W GLENNY PA Unavailable Unavailable PHYSICIAN, OTHER Unavailable Unavailable FLINT, MEHUL PA Unavailable Unavailable FLINT, MEHUL PA Unavailable Unavailable FLINT, MEHUL PA Unavailable Unavailable FLINT, MEHUL PA Unavailable Unavailable FLINT, MEHUL PA Unavailable Unavailable FLINT, MEHUL PA Unavailable Unavailable FLINT, MEHUL PA Unavailable Unavailable FLINT, MEHUL PA Unavailable Unavailable FLINT, MEHUL PA Unavailable Unavailable FLINT, MEHUL PA Unavailable Unavailable FLINT, MEHUL PA Unavailable Unavailable FLINT, MEHUL PA Unavailable Unavailable FLINT, MEHUL PA Unavailable Unavailable FLINT, MEHUL PA Unavailable Unavailable FLINT, MEHUL PA Unavailable Unavailable FLINT, MEHUL PA Unavailable Unavailable FLINT, MEHUL PA Unavailable Unavailable FLINT, MEHUL PA Unavailable Unavailable FLINT, MEHUL PA Unavailable Unavailable FLINT, MEHUL PA Unavailable Unavailable FLINT, MEHUL PA Unavailable Unavailable FLINT, MEHUL PA Unavailable Unavailable FLINT, MEHUL PA Unavailable Unavailable FLINT, MEHUL PA Unavailable Unavailable FLINT, MEHUL PA Unavailable Unavailable FLINT, MEHUL PA Unavailable Unavailable FLINT, MEHUL PA Unavailable Unavailable FLINT, MEHUL PA Unavailable Unavailable FLINT, MEHUL PA Unavailable Unavailable FLINT, MEHUL PA Unavailable Unavailable FLINT, MEHUL PA Unavailable Unavailable FLINT, MEHUL PA Unavailable Unavailable FLINT, MEHUL PA Unavailable Unavailable FLINT, MEHUL PA Unavailable Unavailable FLINT, MEHUL PA Unavailable Unavailable FLINT, MEHUL PA Unavailable Unavailable VALERIE, YEMI MINDY PA Unavailable Unavailable VALERIE, YEMI MINDY PA Unavailable Unavailable VALERIE, YEMI MINDY PA Unavailable Unavailable VALERIE, YEMI MINDY PA Unavailable Unavailable VALERIE, YEMI MINDY PA Unavailable Unavailable VALERIE, YEMI MINDY PA Unavailable Unavailable VALERIE, YEMI MINDY PA Unavailable Unavailable VALERIE, YEMI MINDY PA Unavailable Unavailable VALERIE, YEMI MINDY PA Unavailable Unavailable VALERIE, YEMI MINDY PA Unavailable Unavailable VALERIE, YEMI MINDY PA Unavailable Unavailable VALERIE, YEMI MINDY PA Unavailable Unavailable VALERIE, YEMI MINDY PA Unavailable Unavailable VALERIE, YEMI MINDY PA Unavailable Unavailable VALERIE, YEMI MINDY PA Unavailable Unavailable VALERIE, YEMI MINDY PA Unavailable Unavailable VALERIE, YEMI MINDY PA Unavailable Unavailable VALERIE, YEMI MINDY PA Unavailable Unavailable VALERIE, YEMI MINDY PA Unavailable Unavailable VALERIE, YEMI MINDY PA Unavailable Unavailable VALERIE, YEMI MINDY PA Unavailable Unavailable Townsend, Yoselyn RPA-C Unavailable Unavailable Townsend, Yoselyn RPA-C Unavailable Unavailable Townsend, Yoselyn RPA-C Unavailable Unavailable Townsend, Yoselyn RPA-C Unavailable Unavailable Townsend, Yoselyn RPA-C Unavailable Unavailable Townsend, Yoselyn RPA-C Unavailable Unavailable Townsend, Yoselyn RPA-C Unavailable Unavailable Townsend, Yoselyn RPA-C Unavailable Unavailable Townsend, Yoselyn RPA-C Unavailable Unavailable Townsend, Yoselyn RPA-C Unavailable Unavailable Townsend, Yoselyn RPA-C Unavailable Unavailable Townsend, Yoselyn RPA-C Unavailable Unavailable Townsend, Yoselyn RPA-C Unavailable Unavailable Townsend, Yoselyn RPA-C Unavailable Unavailable Townsend, Yoselyn RPA-C Unavailable Unavailable Kathe NARVAEZ Unavailable Unavailable SHEPARD, RAGS LABORER MORRIS RAGS LABORER Unavailable SHEPARD, RAGS LABORER MORRIS RAGS LABORER Unavailable SHEPARD, RAGS LABORER MORRIS RAGS LABORER Unavailable SHEPARD, RAGS LABORER MORRIS RAGS LABORER Unavailable Bob Villanueva MD Unavailable Unavailable Bob Villanueva MD Unavailable Unavailable Bob Villanueva MD Unavailable Unavailable Bob Villanueva MD Unavailable Unavailable Bob Villanueva MD Unavailable Unavailable Bob Villanueva MD Unavailable Unavailable Bob Villanueva MD Unavailable Unavailable Bob Villanueva MD Unavailable Unavailable Bob Villanueva MD Unavailable Unavailable Bob Villanueva MD Unavailable Unavailable Bob Villanueva MD Unavailable Unavailable Bob Villanueva MD Unavailable Unavailable Bob Villanueva MD Unavailable Unavailable Bob Villanueva MD Unavailable Unavailable Bob Villanueva MD Unavailable Unavailable Bob Villanueva MD Unavailable Unavailable Bob Villanueva MD Unavailable Unavailable Bob Villanueva MD Unavailable Unavailable Bob Villanueva MD Unavailable Unavailable Bob Villanueva MD Unavailable Unavailable Bob Villanueva MD Unavailable Unavailable Bob Villanueva MD Unavailable Unavailable Bob Villanueva MD Unavailable Unavailable Bob Villanueva MD Unavailable Unavailable Bob Villanueva MD Unavailable Unavailable Bob Villanueva MD Unavailable Unavailable Bob Villanueva MD Unavailable Unavailable Bob Villanueva MD Unavailable Unavailable Bob Villanueva MD Unavailable Unavailable Bob Villanueva MD Unavailable Unavailable Bob Villanueva MD Unavailable Unavailable Bob Villanueva MD Unavailable Unavailable Bob Villanueva MD Unavailable Unavailable Bob Villanueva MD Unavailable Unavailable Bob Villanueva MD Unavailable Unavailable Bob Villanueva MD Unavailable Unavailable Bob Villanueva MD Unavailable Unavailable Bob Villanueva MD Unavailable Unavailable Bob Villanueva MD Unavailable Unavailable Bob Villanueva MD Unavailable Unavailable Bob Villanueva MD Unavailable Unavailable Bob Villanueva MD Unavailable Unavailable Bob Villanueva MD Unavailable Unavailable Bob Villanueva MD Unavailable Unavailable Bob Villanueva MD Unavailable Unavailable Bob Villanueva MD Unavailable Unavailable Bob Villanueva MD Unavailable Unavailable Bob Villanueva MD Unavailable Unavailable Bob Villanueva MD Unavailable Unavailable Bob Villanueva MD Unavailable Unavailable Bob Villanueva MD Unavailable Unavailable Bob Villanueva MD Unavailable Unavailable Bob Villanueva MD Unavailable Unavailable Bob Villanueva MD Unavailable Unavailable Bob Villanueva MD Unavailable Unavailable Bob Villanueva MD Unavailable Unavailable Bob Villanueva MD Unavailable Unavailable Bob Villnaueva MD Unavailable Unavailable Bob Villanueva MD Unavailable Unavailable Bob Villanueva MD Unavailable Unavailable Bob Villanueva MD Unavailable Unavailable Bob Villanueva MD Unavailable Unavailable Bob Villanueva MD Unavailable Unavailable Bob Villanueva MD Unavailable Unavailable Sabrina Dean MD Unavailable Unavailable Sabrina Dean MD Unavailable Unavailable Sabrina Dean MD Unavailable Unavailable Sabrina Dean MD Unavailable Unavailable Sabrina Dean MD Unavailable Unavailable Sabrina Dean MD Unavailable Unavailable Sabrina Dean MD Unavailable Unavailable Sabrina Dean MD Unavailable Unavailable Sabrina Dean MD Unavailable Unavailable Sabrina Dean MD Unavailable Unavailable Sabrina Dean MD Unavailable Unavailable Sabrina Dean MD Unavailable Unavailable Sabrina Dean MD Unavailable Unavailable Sabrina Dean MD Unavailable Unavailable Sabrina Dean MD Unavailable Unavailable Sabrina Dean MD Unavailable Unavailable Sabrina Dean MD Unavailable Unavailable Sabrina Dean MD Unavailable Unavailable Sabrina Dean MD Unavailable Unavailable Se Deantech Unavailable Unavailable Se Deantech Unavailable Unavailable Se Deantech Unavailable Unavailable Se Deantech Unavailable Unavailable Sabrina Dean MD Unavailable Unavailable Sabrina Dean MD Unavailable Unavailable Sabrina Dean MD Unavailable Unavailable Se Deantech Unavailable Unavailable Se Deantech Unavailable Unavailable Sabrina Dean MD Unavailable Unavailable Se Deantech Unavailable Unavailable Sabrina Dean MD Unavailable Unavailable Sabrina Dean MD Unavailable Unavailable Sabrina Dean MD Unavailable Unavailable Sabrina Dean MD Unavailable Unavailable Sabrina Dean MD Unavailable Unavailable Sabrina Dean MD Unavailable Unavailable Sabrina Dean MD Unavailable Unavailable Sabrina Dean MD Unavailable Unavailable Sabrina Dean MD Unavailable Unavailable Sabrina Dean MD Unavailable Unavailable Sabrina Dean MD Unavailable Unavailable Sabrina Dean MD Unavailable Unavailable Sabrina Dean MD Unavailable Unavailable Sabrina Dean MD Unavailable Unavailable Sabrina Dean MD Unavailable Unavailable Sabrina Dean MD Unavailable Unavailable Sabrina Dean MD Unavailable Unavailable Sabrina Dean MD Unavailable Unavailable Sabrina Dean MD Unavailable Unavailable Sabrina Dean MD Unavailable Unavailable Sabrina Dean MD Unavailable Unavailable Sabrina Dean MD Unavailable Unavailable Sabrina Dean MD Unavailable Unavailable Sabrina Dean MD Unavailable Unavailable Sabrina Dean MD Unavailable Unavailable Sabrina Dean MD Unavailable Unavailable Sabrina Dean MD Unavailable Unavailable JUAN MANUELAlyssa MITCHELLW DO Unavailable Unavailable JUAN MANUELAlyssa MITCHELLW DO Unavailable Unavailable JUAN MANUELAlyssa MITCHELLW DO Unavailable Unavailable JUAN MANUELAlyssa MITCHELLW DO Unavailable Unavailable JUAN MANUELAlyssa MITCHELLW DO Unavailable Unavailable JUAN MANUELAlyssa MITCHELLW DO Unavailable Unavailable JUAN MANUELAlyssa MITCHELLW DO Unavailable Unavailable JUAN MANUELAlyssa MITCHELLW DO Unavailable Unavailable JUAN MANUELAlyssa MITCHELLW DO Unavailable Unavailable JUAN MANUELAlyssa MITCHELLW DO Unavailable Unavailable JUAN MANUELAlyssa MITCHELLW DO Unavailable Unavailable JUAN MANUELAlyssa MITCHELLW DO Unavailable Unavailable JUAN MANUELAlyssa MITCHELLW DO Unavailable Unavailable JUAN MANUELAlyssa MITCHELLW DO Unavailable Unavailable JUAN MANUELAlyssa MITCHELLW DO Unavailable Unavailable JUAN MANUELAlyssa MITCHELLW DO Unavailable Unavailable JUAN MANUELAlyssa MITCHELLW DO Unavailable Unavailable JUAN MANUELAlyssa MITCHELLW DO Unavailable Unavailable JUAN MANUELAlyssa MITCHELLW DO Unavailable Unavailable JUAN MANUELAlyssa MITCHELLW DO Unavailable Unavailable JUAN MANUELAlyssa MITCHELLW DO Unavailable Unavailable JUAN MANUELAlyssa MITCHELLW DO Unavailable Unavailable JUAN MANUELAlyssa MITCHELLW DO Unavailable Unavailable SONIA PATTON MD Unavailable Unavailable SONIA PATTON MD Unavailable Unavailable SONIA PATTON MD Unavailable Unavailable SONIA PATTON MD Unavailable Unavailable POOJA, SONIA MD Unavailable Unavailable POOJA, SONIA MD Unavailable Unavailable POOJA, SONIA MD Unavailable Unavailable POOJA, SONIA MD Unavailable Unavailable POOJA, SONIA MD Unavailable Unavailable POOAJ, SONIA MD Unavailable Unavailable POOJA, SONIA MD Unavailable Unavailable POOJA, SONIA MD Unavailable Unavailable POOJA, SONIA MD Unavailable Unavailable POOJA, SONIA MD Unavailable Unavailable POOJA, SONIA MD Unavailable Unavailable POOJA, SONIA MD Unavailable Unavailable POOJA, SONIA MD Unavailable Unavailable POOJA, SONIA MD Unavailable Unavailable POOJA, OSNIA MD Unavailable Unavailable POOJA, SONIA MD Unavailable Unavailable POOJA, SONIA MD Unavailable Unavailable POOJA, SONIA MD Unavailable Unavailable POOJA, SONIA MD Unavailable Unavailable POOJA, SONIA MD Unavailable Unavailable POOJA, SONIA MD Unavailable Unavailable POOJA, SONIA MD Unavailable Unavailable POOJA, SONIA MD Unavailable Unavailable POOJA, SONIA MD Unavailable Unavailable POOJA, SONIA MD Unavailable Unavailable POOJA, SONIA MD Unavailable Unavailable POOJA, SONIA MD Unavailable Unavailable POOJA, SONIA MD Unavailable Unavailable POOJA, SONIA MD Unavailable Unavailable POOJA, SONIA MD Unavailable Unavailable POOJA, SONIA MD Unavailable Unavailable POOJA, SONIA MD Unavailable Unavailable POOJA, SONIA MD Unavailable Unavailable POOJA, SONIA MD Unavailable Unavailable POOJA, SONIA MD Unavailable Unavailable POOJA, SONIA MD Unavailable Unavailable POOJA, SONIA MD Unavailable Unavailable POOJA, SONIA MD Unavailable Unavailable Rishabh CARMONA MD Unavailable Unavailable Rishabh CARMONA MD Unavailable Unavailable Rishabh CARMONA MD Unavailable Unavailable Rishabh CARMONA MD Unavailable Unavailable Rishabh CARMONA MD Unavailable Unavailable Rishabh CARMONA MD Unavailable Unavailable Rishabh CARMONA MD Unavailable Unavailable Rishabh CARMONA MD Unavailable Unavailable Rishabh CARMONA MD Unavailable Unavailable Rishabh CARMONA MD Unavailable Unavailable Rishabh CARMONA MD Unavailable Unavailable Rishabh CARMONA MD Unavailable Unavailable CHANDRALARishabh MD Unavailable Unavailable CHANDRALA, K DARBY MD Unavailable Unavailable CHANDRALA K DARBY MD Unavailable Unavailable CHANDRALA K DARBY MD Unavailable Unavailable CHANDRALA, K DARBY MD Unavailable Unavailable CHANDRALA, K DARBY MD Unavailable Unavailable CHANDRALA, K DARBY MD Unavailable Unavailable CHANDRALA, K DARBY MD Unavailable Unavailable CHANDRALA, K DARBY MD Unavailable Unavailable CHANDRALA, K DARBY MD Unavailable Unavailable CHANDRALA, K DARBY MD Unavailable Unavailable CHANDRALA, K DARBY MD Unavailable Unavailable CHANDRALA, K DARBY MD Unavailable Unavailable CHANDRALA, K DARBY MD Unavailable Unavailable CHANDRALA, K DARBY MD Unavailable Unavailable CHANDRALA, K DARBY MD Unavailable Unavailable CHANDRALA, K DARBY MD Unavailable Unavailable CHANDRALA, K DARBY MD Unavailable Unavailable CHANDRALA, K DARBY MD Unavailable Unavailable CHANDRALA, K DARBY MD Unavailable Unavailable CHANDRALA, K DARBY MD Unavailable [facility]available [facility] Unavailable Re-disclosure Warning The records that you are about to access may contain information from federally-assisted alcohol or drug abuse programs. If such information is present, then the following federally mandated warning applies: This information has been disclosed to you from records protected by federal confidentiality rules (42 CFR part 2). The federal rules prohibit you from making any further disclosure of this information unless further disclosure is expressly permitted by the written consent of the person to whom it pertains or as otherwise permitted by 42 CFR part 2. A general authorization for the release of medical or other information is NOT sufficient for this purpose. The Federal rules restrict any use of the information to criminally investigate or prosecute any alcohol or drug abuse patient.The records that you are about to access may contain highly sensitive health information, the redisclosure of which is protected by Article 27-F of the [facility] Public Health law. If you continue you may have access to information: Regarding HIV / AIDS; Provided by facilities licensed or operated by the [facility] Office of Mental Health; or Provided by the [facility] Office for People With Developmental Disabilities. If such information is present, then the following [facility] mandated warning applies: This information has been disclosed to you from confidential records which are protected by state law. State law prohibits you from making any further disclosure of this information without the specific written consent of the person to whom it pertains, or as otherwise permitted by law. Any unauthorized further disclosure in violation of state law may result in a fine or senior living sentence or both. A general authorization for the release of medical or other information is NOT sufficient authorization for further disc losure. Encounters Encounter Providers Location Date Indications Data Source(s ) Outpatient Attender: Serafin Villanueva MD 10/07/2020 12:00:00 AM [facility] Unknown [address] [facility] [address] 08/17/2020 12:00:00 AM EST eCW1 ([facility]) Outpatient Attender: JAMILAH ZAMBRANO DO 07/15/2020 10:00:00 A M EST [facility] Outpatient [facility] 07/15/2020 12:00:00 AM EST eCW1 ([facility]) Specialty Clinic [facility] 07/14/2020 12: 00:00 AM EST eCW1 ([facility]) Outpatient [email or web address] 07/12/2020 05:53:07 PM EST [facility] Outpatient [email or web address].TERRANCE 07/12/2020 12:00:00 AM EST [facility] Outpatient [address] [facility] [address] 05/11/2020 12:00:00 AM EDT eCW1 ([facility]) Outpatient Attender: Serafin CRUMeferrer: Sabrina Dean MD 07A-SURCNY 04/08/2020 12:00:00 AM EDT - 04/08/2020 03:34:17 PM EDT Thoracic aortic aneurysm, without rupture [facility] Thoracic aortic aneurysm, without ruptur e Outpatient Attender: MORRIS VENTURAeferrer: MORRIS BHATT NP 04/08/2020 12:00:00 AM EDT - 04/09/2020 12:00:00 AM EDT Thoracic aortic aneurysm, without rupture [facility] Thoracic aortic aneurysm, without ruptur e Emergency Attender: TERRI Scaleserrer: HAILY AYALA DO 03/25/2020 07:33:00 PM EDT - 03/25/2020 07:33:00 PM EDT [facility] Patient [place]. [address] [address] 03/08/2020 12:00:00 AM EDT eCW1 ([facility]) Outpatient Attender: DARBY [place]/Lali/Wilfrid pantoja/Reinkaylynn 02/25/2020 08:30:00 AM EDT MEDENT ([facility]) Outpatient [facility] 01/27/2020 12:00:00 AM EDT eCW1 ([facility]) Outpatient Attender: OTHER PHYSICIANConsultant: [facility] [id number] 01/24/2020 11:40:00 AM EDT [facility] Outpatient Attender: Yoselyn Ramesh RPA-CReferrer: Ariana GARCIA DO EMERGENCY ROOM-CLN2 01/24/2020 11:30:00 AM EDT - 01/24/2020 11:30:00 AM EDT [facility] Outpatient [facility] 01/24/2020 12:00:00 AM EDT eCW1 ([facility]) Outpatient [facility] 01/24/2020 12:00:00 AM EDT eCW1 ([facility]) Outpatient Attender: Michelle REMY-CReferrer: ASIF GARCIA DO EMERGENCY ROOM-LAB REF 01/09/2020 04:16:00 PM EDT - 01/09/2020 04:16:00 PM EDT [facility] Outpatient Attender: Michelle REMY-C 01/09/2020 03:17:0 0 PM EDT [facility] Outpatient [facility] 01/09/2020 12:00:00 AM EDT eCW1 ([facility]) Outpatient [facility] 01/09/2020 12:00:00 AM EDT eCW1 ([facility]) [address] [address] 12/29/2019 12:00:00 AM EDT eCW1 ([facility]) [address] [address] 12/04/2019 12:00:00 AM EDT eCW1 [facility]) Outpatient Attender: JAMILAH Mantilla: JOSE WALLER 10/09/2019 12:00:00 AM EDT - 10/09/2019 11:59:00 PM EDT Thoracic aortic aneurysm, without rupture [facility] Thoracic aortic aneurysm, without ruptur e Outpatient Attender: Serafin Villanueva MD 07A-SURCNY 10/09/19 12:00:00 AM EDT - 10/09/2019 04:07:28 PM EDT Congenital insufficiency of aortic valve [facility] Congenital insufficiency of aortic valve [address] [address] 09/22/2019 12:00:00 AM EST eCW1 ([facility]) [address] [address] 09/19/2019 12:00:00 AM EST eCW1 ([facility]) Outpatient 09/10/2019 01:06:00 PM EST [facility] [address] [address] 09/04/2019 12:00:00 AM EST eCW1 ([facility]) [address] [address] 09/03/2019 12:00:00 AM EST eCW1 ([facility]) [address] [address] 09/01/2019 12:00:00 AM EST eCW1 ([facility]) Outpatient Attender: Serafin Villanueva MD 08/20/2019 12:00:00 AM EST [facility] Outpatient Attender: JAMILAH Cordova: HAILY [facility]ARC[facility] 07/09/2019 01:00:00 PM EST - 07/09/2019 01:00:00 PM EST [facility] Specialty Clinic [facility] 07/09/2019 12: 00:00 AM EST eCW1 ([facility]) Specialty Clinic [facility] 07/03/2019 12: 00:00 AM EST eCW1 ([facility]) Outpatient Attender: ASYA CRUMeferrer: HAILY GARCIA DO 06/11/2019 10:00:00 AM [facility] Emergency Attender: TERRI Shooker: ANDRES GARCIA DO EMERGENCY ROOM-ER 03/18/2019 05:58:00 PM EDT - 03/18/2019 08:14:00 PM [facility] Patient discharged. Emergency Attender: MINDY Scaleserrer: Ariana GARCIA DO EMERGENCY ROOM-ER 01/27/2019 12:03:00 PM EDT - 01/27/2019 12:11:00 PM [facility] Outpatient Attender: ASYA Qiuerrer: HAILY GARCIA DO 12/10/2018 10:04:00 AM EDT - 12/10/2018 10:04:00 AM EDT [facility] pital Outpatient Attender: ASYA Qiuerrer: HAILY GARCIA DO 06/04/2018 10:00:00 AM EST - 06/04/2018 10:00:00 AM [facility] pital Outpatient Attender: SONIA CRUMeferrer: HAILY ESPANA DO 03/02/2018 09:47:00 AM EDT - 03/02/2018 09:47:00 AM EDT [facility] pital Outpatient Attender: HALIY Walkerer: HAILY AYALA DO 01/23/2018 01:00:00 PM EDT - 01/23/2018 01:00:00 PM EDT [facility] Outpatient Attender: JAMILAH Walkerer: HAILY Lane DO 05/02/2017 10:00:00 AM [facility] Outpatient Attender: HAILY Walkerer: HAILY AYALA DO 02/28/2017 09:00:00 AM [facility] Outpatient Attender: HAILY Wolferrer: HAILY AYALA DO 01/22/2017 01:00:00 PM [facility] Outpatient Attender: HAILY GARCIA DO 01/01/2017 01:00:00 PM [facility] Emergency Attender: MINDY LOVE EMERGENCY ROOM-ER 04/28/2016 04:49:00 PM EDT - 04/28/2016 05:00:00 PM [facility] Emergency Attender: Kate BEVERLY EMERGENCY ROOM-ER 0 02/23/2016 01:19:00 PM EDT - 02/23/2016 03:26:00 PM [facility] Outpatient Attender: HAILY Wolferrer: HAILY AYALA DO 01/20/2016 08:00:00 AM [facility] Outpatient Attender: HAILY Walkerer: HAILY AYALA DO 07/14/2015 11:38:00 AM [facility] Outpatient Attender: MEHUL Scaleserrer: HAILY Lane DO 12/25/2014 06:40:00 PM [facility] Outpatient Attender: HAILY Walkerer: HAILY AYALA DO 12/18/2014 09:47:00 AM [facility] Outpatient Attender: HAILY Walkerer: HAILY AYALA DO 10/14/2014 09:54:00 AM [facility] Outpatient Attender: JAMILAH Cordova: HAILY Lane DO 04/21/2014 12:38:00 PM [facility] Emergency Attender: GLENNY RECINOSeferrer: ASIF GARCIA DO EMERGENCY ROOM-ER 03/02/2014 05:14:00 PM EDT - 03/02/2014 10:28:00 PM [facility] Outpatient Attender: HAILY Walkerer: HAILY AYALA DO 11/26/2013 06:29:00 PM [facility] Outpatient Attender: Serafin CRUMeferrer: HAILY GARCIA DO 08/27/2013 09:13:00 AM [facility] Outpatient Attender: PRABHJOT CRUMeferrer: HAILY GARCIA DO 05/01/2013 09:26:00 AM [facility] Outpatient Attender: JAMILAH Walkerer: HAILY Lane DO 04/08/2013 10:13:00 AM [facility] Outpatient Attender: HAILY Wolferrer: HAILYMOO AYALA DO 03/13/2013 08:53:00 AM [facility] Outpatient Attender: HAILY Wolferrer: HAILYMOO AYALA DO 03/06/2013 09:02:00 AM [facility] Outpatient Attender: HAILY Wolferrer: HAILY AYALA DO 11/07/2012 08:24:00 AM [facility] Emergency Attender: JESÚS SCHRADER PAReferrer: MAULIK GARCIA DO EMERGENCY ROOM-ER 06/05/2012 08:44:00 AM EST - 06/05/2012 10:46:00 AM [facility] Emergency Attender: RADHA MERIDA PAReferrer : HAILY GARCIA DO EMERGENCY ROOM-ER 01/18/2012 08:16:00 AM EDT - 01/18/2012 11:00:00 AM [facility] Medications Medication Brand Name Start Date Product Form Dose Route Admi nistrative Instructions Pharmacy Instructions Status Indications Reaction Description Data Source(s) OneTouch Ultra - OneTouch Ultra - 08/17/2020 12:00:00 AM EST active OneTouch Ultra - eCW1 ([facility]) carvedilol 25 MG Oral Tablet CARVEDILOL 07/22/2020 12:00:00 AM EST tab let 60 TAKE ONE TABLET BY MOUTH TWICE A DAY WITH FOOD TAKE ONE TABLET BY MOUTH TWICE A DAY WITH FOOD SOLD: 07/22/2020 [facility] 20-25 mg 07/22/2020 12:00:00 AM EST tablet 30 TAKE ONE TABLET BY MOUTH EVERY DAY TAKE ONE TABLET BY MOUTH EVERY DAY SOLD: 07/22/2020 [facility] 500 mg 07/15/2020 12:00:00 AM EST tablet 28 TAKE 1 TABLET BY MOUTH TWO TIMES A DAY TAKE 1 TABLET BY MOUTH TWO TIMES A DAY SOLD: 07/16/2020 [facility] 500 mg 07/15/2020 12:00:00 AM EST capsule 56 TAKE 2 CAPSULES BY MOUTH TWO TIMES A DAY TAKE 2 CAPSULES BY MOUTH TWO TIMES A DAY SOLD: 07/16/2020 [facility] 20 mg 07/15/2020 12:00:00 AM EST capsule,delayed release (DR/EC) 28 TAKE 1 CAPSULE BY MOUTH TWO TIMES A DAY TAKE 1 CAPSULE BY MOUTH TWO TIMES A DAY SOLD: 07/16/2020 [facility] Omeprazole 40 MG Delayed Release Oral Capsule Omeprazole 06/21/2020 12:00:00 AM EST active MEDENT ([facility], ) Famotidine 20 MG Oral Tablet Famotidine Maximum Strength 12:00:00 AM EDT completed MEDENT ([facility], ) 1.5 mg/0.5 mL 05/26/2020 12:00:00 AM EDT pen injector 2 INJECT THE CONTENTS OF ONE PEN UNDER THE SKIN WEEKLY INJECT THE CONTENTS OF ONE PEN UNDER THE SKIN WEEKLY SOLD: 06/27/2020 [facility] 1.5 mg/0.5 mL 05/26/2020 12:00:00 AM EDT pen injector 2 INJECT THE CONTENTS OF ONE PEN UNDER THE SKIN WEEKLY INJECT THE CONTENTS OF ONE PEN UNDER THE SKIN WEEKLY SOLD: 07/29/2020 [facility] 1.5 mg/0.5 mL 05/26/2020 12:00:00 AM EDT pen injector 2 INJECT THE CONTENTS OF ONE PEN UNDER THE SKIN WEEKLY INJECT THE CONTENTS OF ONE PEN UNDER THE SKIN WEEKLY SOLD: 05/27/2020 [facility] 40 mg 05/25/2020 12:00:00 AM EDT capsule,delayed release (DR/EC) 30 TAKE ONE CAPSULE BY MOUTH EVERY DAY TAKE ONE CAPSULE BY MOUTH EVERY DAY SOLD: 06/27/2020 [facility] 40 mg 05/25/2020 12:00:00 AM EDT capsule,delayed release (DR/EC) 30 TAKE ONE CAPSULE BY MOUTH EVERY DAY TAKE ONE CAPSULE BY MOUTH EVERY DAY SOLD: 07/29/2020 [facility] 40 mg 05/25/2020 12:00:00 AM EDT capsule,delayed release (DR/EC) 30 TAKE ONE CAPSULE BY MOUTH EVERY DAY TAKE ONE CAPSULE BY MOUTH EVERY DAY SOLD: 05/27/2020 [facility] 1 gram 05/09/2020 12:00:00 AM EDT tablet 90 TAKE ONE TABLET BY MOUTH THREE TIMES A DAY AFTER MEALS TAKE ONE TABLET BY MOUTH THREE TIMES A DAY AFTER MEALS SOLD: 08/04/2020 [facility] 1 gram 05/09/2020 12:00:00 AM EDT tablet 90 TAKE ONE TABLET BY MOUTH THREE TIMES A DAY AFTER MEALS TAKE ONE TABLET BY MOUTH THREE TIMES A DAY AFTER MEALS SOLD: 06/17/2020 [facility] 1 gram 05/09/2020 12:00:00 AM EDT tablet 90 TAKE ONE TABLET BY MOUTH THREE TIMES A DAY AFTER MEALS TAKE ONE TABLET BY MOUTH THREE TIMES A DAY AFTER MEALS SOLD: 05/09/2020 [facility] Psyllium 500 MG Oral Capsule [Metamucil] Metamucil 05/07/2020 12 :00:00 AM EDT ORAL completed MEDENT ([facility], ) Sucralfate 100 MG/ML Oral Suspension Sucralfate 05/07/2020 12:00:00 A M EDT ORAL active [facility] ([facility], ) Fenofibrate 160 MG Oral Tablet FENOFIBRATE 04/27/2020 12:00:00 AM EDT tablet 30 TAKE ONE TABLET BY MOUTH EVERY DAY WTH A MEAL TAKE ONE TABLET BY MOUTH EVERY DAY WTH A MEAL SOLD: 04/30/2020 [facility] Fenofibrate 160 MG Oral Tablet FENOFIBRATE 04/27/2020 12:00:00 AM EDT tablet 30 TAKE ONE TABLET BY MOUTH EVERY DAY WTH A MEAL TAKE ONE TABLET BY MOUTH EVERY DAY WTH A MEAL SOLD: 07/29/2020 [facility] Fenofibrate 160 MG Oral Tablet FENOFIBRATE 04/27/2020 12:00:00 AM EDT tablet 30 TAKE ONE TABLET BY MOUTH EVERY DAY WTH A MEAL TAKE ONE TABLET BY MOUTH EVERY DAY WTH A MEAL SOLD: 05/27/2020 [facility] atorvastatin 10 MG Oral Tablet ATORVASTATIN CALCIUM 04/27/2020 1 2:00:00 AM EDT tablet 30 TAKE ONE TABLET BY MOUTH EVERY D AY TAKE ONE TABLET BY MOUTH EVERY DAY SOLD: 05/27/2020 [facility] atorvastatin 10 MG Oral Tablet ATORVASTATIN CALCIUM 04/27/2020 1 2:00:00 AM EDT tablet 30 TAKE ONE TABLET BY MOUTH EVERY D AY TAKE ONE TABLET BY MOUTH EVERY DAY SOLD: 06/27/2020 [facility] atorvastatin 10 MG Oral Tablet ATORVASTATIN CALCIUM 04/27/2020 1 2:00:00 AM EDT tablet 30 TAKE ONE TABLET BY MOUTH EVERY D AY TAKE ONE TABLET BY MOUTH EVERY DAY SOLD: 04/30/2020 [facility] atorvastatin 10 MG Oral Tablet ATORVASTATIN CALCIUM 04/27/2020 1 2:00:00 AM EDT tablet 30 TAKE ONE TABLET BY MOUTH EVERY D AY TAKE ONE TABLET BY MOUTH EVERY DAY SOLD: 07/29/2020 [facility] Fenofibrate 160 MG Oral Tablet FENOFIBRATE 04/27/2020 12:00:00 AM EDT tablet 30 TAKE ONE TABLET BY MOUTH EVERY DAY WTH A MEAL TAKE ONE TABLET BY MOUTH EVERY DAY WTH A MEAL SOLD: 06/27/2020 [facility] Bisacodyl 5 MG Delayed Release Oral Tablet [Dulcolax] Dulcol ax 04/13/2020 12:00:00 AM EDT completed MEDENT ([facility], ) Clenpiq Clenpiq 04/13/2020 12:00:00 AM EDT complet ed MEDENT ([facility], ) 20 mg 04/13/2020 12:00:00 AM EDT tablet 90 TAKE 1 TABLET BY MOUTH THREE TIMES A DAY TAKE 1 TABLET BY MOUTH THREE TIMES A DAY SOLD: 07/16/2020 [facility] POLYETHYLENE GLYCOL 3350 105 MG/ML / Pot assium Chloride 0.78306 MEQ/ML / Sodium Bicarbonate 0.017 MEQ/ML / Sodium Chloride 0.0479 MEQ/ML Oral Solution [GaviLyte-N] Gavilyte-N With Flavor Pack 04/13/2020 12:00:00 AM EDT completed MEDENT ([facility], ) 20 mg 04/13/2020 12:00:00 AM EDT tablet 90 TAKE 1 TABLET BY MOUTH THREE TIMES A DAY TAKE 1 TABLET BY MOUTH THREE TIMES A DAY SOLD: 04/15/2020 [facility] 420 gram 04/13/2020 12:00:00 AM EDT recon soln 4000 DRINK THE LIQUID PER THE PRE-PROCEDURE INSTRUCTIONS DRINK THE LIQUID PER THE PRE-PROCEDUR E INSTRUCTIONS SOLD: 04/15/2020 [facility] iohexol (OMNIPAQUE) 350 MG/ML contrast injection 150 mL 2805 8 04/08/2020 02:15:00 PM EDT 150 mL Intravenous completed 150 mL, Intravenous, 1 TIME IMAGING, [facility] 04/08/20 at 1415, For 1 dose, Imaging Protocol [facility] Medication administered onsite 5-325 mg 03/26/2020 12:00:00 AM EDT tablet 12 TAKE ONE TO TWO TABLETS BY MOUTH EVERY 4 TO 6 HOURS WHILE AWAKE NEEDED, MAXIMUM DAILY DOSE = 12 TABLETS TAKE ONE TO TWO TABLETS BY MOUTH EVERY 4 TO 6 HOURS WHILE AWAKE NEEDED, MAXIMUM DAILY DOSE = 12 TABLETS SOLD: 03/26/2020 [facility] 20-25 mg 01/29/2020 12:00:00 AM EDT tablet 30 TAKE ONE TABLET BY MOUTH EVERY DAY TAKE ONE TABLET BY MOUTH EVERY DAY SOLD: 05/27/2020 [facility] carvedilol 25 MG Oral Tablet CARVEDILOL 01/29/2020 12:00:00 AM EDT tab let 60 TAKE ONE TABLET BY MOUTH TWICE A DAY WITH FOOD TAKE ONE TABLET BY MOUTH TWICE A DAY WITH FOOD SOLD: 05/27/2020 [facility] carvedilol 25 MG Oral Tablet CARVEDILOL 01/29/2020 12:00:00 AM EDT tab let 60 TAKE ONE TABLET BY MOUTH TWICE A DAY WITH FOOD TAKE ONE TABLET BY MOUTH TWICE A DAY WITH FOOD SOLD: 03/01/2020 [facility] 20-25 mg 01/29/2020 12:00:00 AM EDT tablet 30 TAKE ONE TABLET BY MOUTH EVERY DAY TAKE ONE TABLET BY MOUTH EVERY DAY SOLD: 02/01/2020 [facility] carvedilol 25 MG Oral Tablet CARVEDILOL 01/29/2020 12:00:00 AM EDT tab let 60 TAKE ONE TABLET BY MOUTH TWICE A DAY WITH FOOD TAKE ONE TABLET BY MOUTH TWICE A DAY WITH FOOD SOLD: 04/01/2020 [facility] carvedilol 25 MG Oral Tablet CARVEDILOL 01/29/2020 12:00:00 AM EDT tab let 60 TAKE ONE TABLET BY MOUTH TWICE A DAY WITH FOOD TAKE ONE TABLET BY MOUTH TWICE A DAY WITH FOOD SOLD: 04/30/2020 [facility] carvedilol 25 MG Oral Tablet CARVEDILOL 01/29/2020 12:00:00 AM EDT tab let 60 TAKE ONE TABLET BY MOUTH TWICE A DAY WITH FOOD TAKE ONE TABLET BY MOUTH TWICE A DAY WITH FOOD SOLD: 06/27/2020 [facility] 20-25 mg 01/29/2020 12:00:00 AM EDT tablet 30 TAKE ONE TABLET BY MOUTH EVERY DAY TAKE ONE TABLET BY MOUTH EVERY DAY SOLD: 04/01/2020 [facility] 20-25 mg 01/29/2020 12:00:00 AM EDT tablet 30 TAKE ONE TABLET BY MOUTH EVERY DAY TAKE ONE TABLET BY MOUTH EVERY DAY SOLD: 04/30/2020 [facility] 20-25 mg 01/29/2020 12:00:00 AM EDT tablet 30 TAKE ONE TABLET BY MOUTH EVERY DAY TAKE ONE TABLET BY MOUTH EVERY DAY SOLD: 06/27/2020 [facility] carvedilol 25 MG Oral Tablet CARVEDILOL 01/29/2020 12:00:00 AM EDT tab let 60 TAKE ONE TABLET BY MOUTH TWICE A DAY WITH FOOD TAKE ONE TABLET BY MOUTH TWICE A DAY WITH FOOD SOLD: 02/01/2020 [facility] 20-25 mg 01/29/2020 12:00:00 AM EDT tablet 30 TAKE ONE TABLET BY MOUTH EVERY DAY TAKE ONE TABLET BY MOUTH EVERY DAY SOLD: 03/01/2020 [facility] 250 mg 01/27/2020 12:00:00 AM EDT tablet 20 TAKE ONE TABLET BY MOUTH EVERY 12 HOURS TAKE ONE TABLET BY MOUTH EVERY 12 HOURS SOLD: 01/27/2020 [facility] Ciprofloxacin 250 MG Oral Tablet [Cipro] Cipro 250 MG Cipro 250 MG 01/27/2020 12:00:00 AM EDT 1.0 {tablet} active Ci pro 250 MG [facility] [facility] 100 mg 01/24/2020 12:00:00 AM EDT capsule 20 TAKE ONE CAPSULE BY MOUTH TWICE A DAY FOR 10 DAYS TAKE ONE CAPSULE BY MOUTH TWICE A DAY FOR 10 DAYS SOLD : 01/24/2020 [facility] NITROFURANTOIN, MACROCRYSTALS 100 MG Ora l Capsule Nitrofurantoin Macrocrystal 100 MG Nitrofurantoin Macrocrystal 100 MG 01/24/2020 12:00:00 AM EDT 1.0 {capsule} active Nitrofurantoin Macrocr ystal 100 MG eCW1 ([facility]) NITROFURANTOIN, MACROCRYSTALS 100 MG Ora l Capsule Nitrofurantoin Macrocrystal 100 MG Nitrofurantoin Macrocrystal 100 MG 01/24/2020 12:00:00 AM EDT 1.0 {capsule} active Nitrofurantoin Macrocr ystal 100 MG eCW1 ([facility]) Sulfamethoxazole 800 MG / Trimethoprim 1 60 MG Oral Tablet [Bactrim] Bactrim DS 800-160 MG Bactrim DS 800-160 MG 01/09/2020 12:00:00 AM EDT 1.0 {table t} active Bactrim DS 800-160 MG eCW1 ( [facility]) 800-160 mg 01/09/2020 12:00:00 AM EDT tablet 10 TAKE ONE TABLET BY MOUTH TWICE A DAY FOR 5 DAYS TAKE ONE TABLET BY MOUTH TWICE A DAY FOR 5 DAYS SOLD: 01/09/2020 [facility] Sulfamethoxazole 800 MG / Trimethoprim 1 60 MG Oral Tablet [Bactrim] Bactrim DS 800-160 MG Bactrim DS 800-160 MG 01/09/2020 12:00:00 AM EDT 1.0 {table t} active Bactrim DS 800-160 MG eCW1 ( [facility]) 500 mg 12/30/2019 12:00:00 AM EDT tablet 360 TAKE 2 TABLETS BY MOUTH TWO TIMES A DAY WITH MEALS TAKE 2 TABLETS BY MOUTH TWO TIMES A DAY WITH MEALS MARCELA [facility] 500 mg 12/30/2019 12:00:00 AM EDT tablet 360 TAKE 2 TABLETS BY MOUTH TWO TIMES A DAY WITH MEALS TAKE 2 TABLETS BY MOUTH TWO TIMES A DAY WITH MEALS MARCELA [facility] 500 mg 12/30/2019 12:00:00 AM EDT tablet 360 TAKE 2 TABLETS BY MOUTH TWO TIMES A DAY WITH MEALS TAKE 2 TABLETS BY MOUTH TWO TIMES A DAY WITH MEALS MARCELA [facility] Lactic acid 50 MG/ML Topical Lotion [Lac-Hydrin] Lac-H ydrin Five 5 % Lac-Hydrin Five 5 % 12/04/2019 12:00:00 AM EDT 1.0 {application} active Lac- Hydrin Five 5 % eCW1 ([facility]) Lactic acid 50 MG/ML Topical Lotion [Lac-Hydrin] Lac-H ydrin Five 5 % Lac-Hydrin Five 5 % 12/04/2019 12:00:00 AM EDT active 1 application eCW1 ([facility]) Lactic acid 50 MG/ML Topical Lotion [Lac-Hydrin] Lac-H ydrin Five 5 % Lac-Hydrin Five 5 % 12/04/2019 12:00:00 AM EDT 1.0 {application} active Lac- Hydrin Five 5 % eCW1 ([facility]) 1.5 mg/0.5 mL 12/02/2019 12:00:00 AM EDT pen injector 2 INJECT 0.5 ML UNDER THE SKIN ONCE WEEKLY INJECT 0.5 ML UNDER THE SKIN ONCE WEEKLY SOLD: 01/03/2020 [facility] 1.5 mg/0.5 mL 12/02/2019 12:00:00 AM EDT pen injector 2 INJECT 0.5 ML UNDER THE SKIN ONCE WEEKLY INJECT 0.5 ML UNDER THE SKIN ONCE WEEKLY SOLD: 03/01/2020 [facility] 1.5 mg/0.5 mL 12/02/2019 12:00:00 AM EDT pen injector 2 INJECT 0.5 ML UNDER THE SKIN ONCE WEEKLY INJECT 0.5 ML UNDER THE SKIN ONCE WEEKLY SOLD: 04/30/2020 [facility] 1.5 mg/0.5 mL 12/02/2019 12:00:00 AM EDT pen injector 2 INJECT 0.5 ML UNDER THE SKIN ONCE WEEKLY INJECT 0.5 ML UNDER THE SKIN ONCE WEEKLY SOLD: 04/01/2020 [facility] 1.5 mg/0.5 mL 12/02/2019 12:00:00 AM EDT pen injector 2 INJECT 0.5 ML UNDER THE SKIN ONCE WEEKLY INJECT 0.5 ML UNDER THE SKIN ONCE WEEKLY SOLD: 02/01/2020 [facility] 1.5 mg/0.5 mL 12/02/2019 12:00:00 AM EDT pen injector 2 INJECT 0.5 ML UNDER THE SKIN ONCE WEEKLY INJECT 0.5 ML UNDER THE SKIN ONCE WEEKLY SOLD: 12/05/2019 [facility] 40 mg 12/01/2019 12:00:00 AM EDT capsule,delayed release (DR/EC) 30 TAKE ONE CAPSULE BY MOUTH EVERY DAY TAKE ONE CAPSULE BY MOUTH EVERY DAY SOLD: 04/30/2020 [facility] 40 mg 12/01/2019 12:00:00 AM EDT capsule,delayed release (DR/EC) 30 TAKE ONE CAPSULE BY MOUTH EVERY DAY TAKE ONE CAPSULE BY MOUTH EVERY DAY SOLD: 01/03/2020 [facility] 40 mg 12/01/2019 12:00:00 AM EDT capsule,delayed release (DR/EC) 30 TAKE ONE CAPSULE BY MOUTH EVERY DAY TAKE ONE CAPSULE BY MOUTH EVERY DAY SOLD: 12/05/2019 [facility] 40 mg 12/01/2019 12:00:00 AM EDT capsule,delayed release (DR/EC) 30 TAKE ONE CAPSULE BY MOUTH EVERY DAY TAKE ONE CAPSULE BY MOUTH EVERY DAY SOLD: 02/01/2020 [facility] 40 mg 12/01/2019 12:00:00 AM EDT capsule,delayed release (DR/EC) 30 TAKE ONE CAPSULE BY MOUTH EVERY DAY TAKE ONE CAPSULE BY MOUTH EVERY DAY SOLD: 03/01/2020 [facility] 40 mg 12/01/2019 12:00:00 AM EDT capsule,delayed release (DR/EC) 30 TAKE ONE CAPSULE BY MOUTH EVERY DAY TAKE ONE CAPSULE BY MOUTH EVERY DAY SOLD: 04/01/2020 [facility] iohexol (OMNIPAQUE) 350 MG/ML contrast injection 100 mL [id number] 10/09/2019 12:45:00 PM EDT 100 mL Intravenous completed 100 mL, Intravenous, 1 TIME IMAGING, [facility] 10/09/19 at 1245, For 1 dose, Imaging [facility] Medication administered onsite 20 mg 09/22/2019 12:00:00 AM EST tablet 90 TAKE 1 TABLET BY MOUTH THREE TIMES A DAY TAKE 1 TABLET BY MOUTH THREE TIMES A DAY SOLD: 02/27/2020 [facility] 20 mg 09/22/2019 12:00:00 AM EST tablet 90 TAKE 1 TABLET BY MOUTH THREE TIMES A DAY TAKE 1 TABLET BY MOUTH THREE TIMES A DAY SOLD: 11/10/2019 [facility] 20 mg 09/22/2019 12:00:00 AM EST tablet 90 TAKE 1 TABLET BY MOUTH THREE TIMES A DAY TAKE 1 TABLET BY MOUTH THREE TIMES A DAY SOLD: 09/22/2019 [facility] 20 mg 09/22/2019 12:00:00 AM EST tablet 90 TAKE 1 TABLET BY MOUTH THREE TIMES A DAY TAKE 1 TABLET BY MOUTH THREE TIMES A DAY SOLD: 01/03/2020 [facility] Dicyclomine Hydrochloride 20 MG Oral Tab let Dicyclomine HCl 20 MG Oral Tablet (BENTYL) Dicyclomine HCl 20 MG Oral Tablet (BENTYL) 09/21/2019 12:00: 00 AM EST active [facility] 20 mg 09/03/2019 12:00:00 AM EST tablet 30 TAKE ONE TABLET BY MOUTH THREE TIMES A DAY TAKE ONE TABLET BY MOUTH THREE TIMES A DAY SOLD: 09/03/2019 [facility] 20 mg 09/03/2019 12:00:00 AM EST tablet 30 TAKE ONE TABLET BY MOUTH THREE TIMES A DAY TAKE ONE TABLET BY MOUTH THREE TIMES A DAY SOLD: 09/12/2019 [facility] Dicyclomine Hydrochloride 20 MG Oral Tablet Dicyclomin e HCl 20 MG Dicyclomine HCl 20 MG 09/01/2019 12:00:00 AM EST active 1 tablet eCW1 ([facility]) Dicyclomine Hydrochloride 20 MG Oral Tablet Dicyclomin e HCl 20 MG Dicyclomine HCl 20 MG 09/01/2019 12:00:00 AM EST 1.0 {tablet} ac tive Dicyclomine HCl 20 MG eCW1 ([facility]) Dicyclomine Hydrochloride 20 MG Oral Tablet Dicyclomin e HCl 20 MG Dicyclomine HCl 20 MG 09/01/2019 12:00:00 AM EST active 1 tablet eCW1 ([facility]) Dicyclomine Hydrochloride 20 MG Oral Tablet Dicyclomin e HCl 20 MG Dicyclomine HCl 20 MG 09/01/2019 12:00:00 AM EST 1.0 {tablet} ac tive Dicyclomine HCl 20 MG eCW1 ([facility]) Dicyclomine Hydrochloride 20 MG Oral Tablet Dicyclomin e HCl 20 MG Dicyclomine HCl 20 MG 09/01/2019 12:00:00 AM EST active 1 tablet eCW1 ([facility]) Dicyclomine Hydrochloride 20 MG Oral Tablet Dicyclomin e HCl 20 MG Dicyclomine HCl 20 MG 09/01/2019 12:00:00 AM EST active 1 tablet eCW1 ([facility]) carvedilol 25 MG Oral Tablet CARVEDILOL 08/04/2019 12:00:00 AM EST tab let 60 TAKE ONE TABLET BY MOUTH TWICE A DAY WITH FOOD TAKE ONE TABLET BY MOUTH TWICE A DAY WITH FOOD SOLD: 01/03/2020 [facility] carvedilol 25 MG Oral Tablet CARVEDILOL 08/04/2019 12:00:00 AM EST tab let 60 TAKE ONE TABLET BY MOUTH TWICE A DAY WITH FOOD TAKE ONE TABLET BY MOUTH TWICE A DAY WITH FOOD SOLD: 12/05/2019 [facility] carvedilol 25 MG Oral Tablet CARVEDILOL 08/04/2019 12:00:00 AM EST tab let 60 TAKE ONE TABLET BY MOUTH TWICE A DAY WITH FOOD TAKE ONE TABLET BY MOUTH TWICE A DAY WITH FOOD SOLD: 08/08/2019 [facility] carvedilol 25 MG Oral Tablet CARVEDILOL 08/04/2019 12:00:00 AM EST tab let 60 TAKE ONE TABLET BY MOUTH TWICE A DAY WITH FOOD TAKE ONE TABLET BY MOUTH TWICE A DAY WITH FOOD SOLD: 10/10/2019 [facility] carvedilol 25 MG Oral Tablet CARVEDILOL 08/04/2019 12:00:00 AM EST tab let 60 TAKE ONE TABLET BY MOUTH TWICE A DAY WITH FOOD TAKE ONE TABLET BY MOUTH TWICE A DAY WITH FOOD SOLD: 09/12/2019 [facility] carvedilol 25 MG Oral Tablet CARVEDILOL 08/04/2019 12:00:00 AM EST tab let 60 TAKE ONE TABLET BY MOUTH TWICE A DAY WITH FOOD TAKE ONE TABLET BY MOUTH TWICE A DAY WITH FOOD SOLD: 11/06/2019 [facility] 20-25 mg 08/01/2019 12:00:00 AM EST tablet 30 TAKE ONE TABLET BY MOUTH EVERY DAY TAKE ONE TABLET BY MOUTH EVERY DAY SOLD: 08/08/2019 [facility] 20-25 mg 08/01/2019 12:00:00 AM EST tablet 30 TAKE ONE TABLET BY MOUTH EVERY DAY TAKE ONE TABLET BY MOUTH EVERY DAY SOLD: 11/06/2019 [facility] 20-25 mg 08/01/2019 12:00:00 AM EST tablet 30 TAKE ONE TABLET BY MOUTH EVERY DAY TAKE ONE TABLET BY MOUTH EVERY DAY SOLD: 09/12/2019 [facility] 20-25 mg 08/01/2019 12:00:00 AM EST tablet 30 TAKE ONE TABLET BY MOUTH EVERY DAY TAKE ONE TABLET BY MOUTH EVERY DAY SOLD: 12/05/2019 [facility] 20-25 mg 08/01/2019 12:00:00 AM EST tablet 30 TAKE ONE TABLET BY MOUTH EVERY DAY TAKE ONE TABLET BY MOUTH EVERY DAY SOLD: 01/03/2020 [facility] 20-25 mg 08/01/2019 12:00:00 AM EST tablet 30 TAKE ONE TABLET BY MOUTH EVERY DAY TAKE ONE TABLET BY MOUTH EVERY DAY SOLD: 10/10/2019 [facility] 20-25 mg 07/06/2019 12:00:00 AM EST tablet 30 TAKE ONE TABLET BY MOUTH EVERY DAY TAKE ONE TABLET BY MOUTH EVERY DAY SOLD: 07/09/2019 [facility] 40 mg 06/10/2019 12:00:00 AM EST capsule,delayed release (DR/EC) 30 TAKE 1 CAPSULE BY MOUTH ONCE A DAY TAKE 1 CAPSULE BY MOUTH ONCE A DAY SOLD: 09/12/2019 [facility] 40 mg 06/10/2019 12:00:00 AM EST capsule,delayed release (DR/EC) 30 TAKE 1 CAPSULE BY MOUTH ONCE A DAY TAKE 1 CAPSULE BY MOUTH ONCE A DAY SOLD: 11/06/2019 [facility] 1.5 mg/0.5 mL 06/10/2019 12:00:00 AM EST pen injector 2 INJECT 0.5 ML SUBCUTANEOUSLY ONCE WEEKLY INJECT 0.5 ML SUBCUTANEOUSLY ONCE WEEKLY SOLD: 08/08/2019 [facility] 1.5 mg/0.5 mL 06/10/2019 12:00:00 AM EST pen injector 2 INJECT 0.5 ML SUBCUTANEOUSLY ONCE WEEKLY INJECT 0.5 ML SUBCUTANEOUSLY ONCE WEEKLY SOLD: 07/09/2019 [facility] 40 mg 06/10/2019 12:00:00 AM EST capsule,delayed release (DR/EC) 30 TAKE 1 CAPSULE BY MOUTH ONCE A DAY TAKE 1 CAPSULE BY MOUTH ONCE A DAY SOLD: 10/10/2019 [facility] 1.5 mg/0.5 mL 06/10/2019 12:00:00 AM EST pen injector 2 INJECT 0.5 ML SUBCUTANEOUSLY ONCE WEEKLY INJECT 0.5 ML SUBCUTANEOUSLY ONCE WEEKLY SOLD: 10/10/2019 [facility] 1.5 mg/0.5 mL 06/10/2019 12:00:00 AM EST pen injector 2 INJECT 0.5 ML SUBCUTANEOUSLY ONCE WEEKLY INJECT 0.5 ML SUBCUTANEOUSLY ONCE WEEKLY SOLD: 09/12/2019 [facility] 1.5 mg/0.5 mL 06/10/2019 12:00:00 AM EST pen injector 2 INJECT 0.5 ML SUBCUTANEOUSLY ONCE WEEKLY INJECT 0.5 ML SUBCUTANEOUSLY ONCE WEEKLY SOLD: 11/06/2019 [facility] 40 mg 06/10/2019 12:00:00 AM EST capsule,delayed release (DR/EC) 30 TAKE 1 CAPSULE BY MOUTH ONCE A DAY TAKE 1 CAPSULE BY MOUTH ONCE A DAY SOLD: 07/09/2019 [facility] 40 mg 06/10/2019 12:00:00 AM EST capsule,delayed release (DR/EC) 30 TAKE 1 CAPSULE BY MOUTH ONCE A DAY TAKE 1 CAPSULE BY MOUTH ONCE A DAY SOLD: 08/08/2019 [facility] BLOOD SUGAR DIAGNOSTIC 05/18/2019 12:00:00 AM EDT strip 50 USE DIRECTED TWO TIMES A DAY USE DIRECTED TWO TIMES A DAY SOLD: 10/15/2019 [facility] 10 mg 05/07/2019 12:00:00 AM EDT tablet 30 TAKE ONE TABLET BY MOUTH EVERY DAY TAKE ONE TABLET BY MOUTH EVERY DAY SOLD: 02/01/2020 [facility] 10 mg 05/07/2019 12:00:00 AM EDT tablet 30 TAKE ONE TABLET BY MOUTH EVERY DAY TAKE ONE TABLET BY MOUTH EVERY DAY SOLD: 12/05/2019 [facility] 160 mg 05/07/2019 12:00:00 AM EDT tablet 30 TAKE ONE TABLET BY MOUTH EVERY DAY WITH A MEAL TAKE ONE TABLET BY MOUTH EVERY DAY WITH A MEAL SOLD: [facility] 160 mg 05/07/2019 12:00:00 AM EDT tablet 30 TAKE ONE TABLET BY MOUTH EVERY DAY WITH A MEAL TAKE ONE TABLET BY MOUTH EVERY DAY WITH A MEAL SOLD: [facility] 10 mg 05/07/2019 12:00:00 AM EDT tablet 30 TAKE ONE TABLET BY MOUTH EVERY DAY TAKE ONE TABLET BY MOUTH EVERY DAY SOLD: 10/10/2019 [facility] 160 mg 05/07/2019 12:00:00 AM EDT tablet 30 TAKE ONE TABLET BY MOUTH EVERY DAY WITH A MEAL TAKE ONE TABLET BY MOUTH EVERY DAY WITH A MEAL SOLD: [facility] 160 mg 05/07/2019 12:00:00 AM EDT tablet 30 TAKE ONE TABLET BY MOUTH EVERY DAY WITH A MEAL TAKE ONE TABLET BY MOUTH EVERY DAY WITH A MEAL SOLD: [facility] 10 mg 05/07/2019 12:00:00 AM EDT tablet 30 TAKE ONE TABLET BY MOUTH EVERY DAY TAKE ONE TABLET BY MOUTH EVERY DAY SOLD: 03/01/2020 [facility] 10 mg 05/07/2019 12:00:00 AM EDT tablet 30 TAKE ONE TABLET BY MOUTH EVERY DAY TAKE ONE TABLET BY MOUTH EVERY DAY SOLD: 08/08/2019 [facility] Fenofibrate 160 MG Oral Tablet FENOFIBRATE 05/07/2019 12:00:00 AM EDT tablet 30 TAKE ONE TABLET BY MOUTH EVERY DAY WITH A MEAL TAKE ON E TABLET BY MOUTH EVERY DAY WITH A MEAL SOLD: 04/01/2020 [facility] 10 mg 05/07/2019 12:00:00 AM EDT tablet 30 TAKE ONE TABLET BY MOUTH EVERY DAY TAKE ONE TABLET BY MOUTH EVERY DAY SOLD: 09/12/2019 [facility] 10 mg 05/07/2019 12:00:00 AM EDT tablet 30 TAKE ONE TABLET BY MOUTH EVERY DAY TAKE ONE TABLET BY MOUTH EVERY DAY SOLD: 01/03/2020 [facility] 160 mg 05/07/2019 12:00:00 AM EDT tablet 30 TAKE ONE TABLET BY MOUTH EVERY DAY WITH A MEAL TAKE ONE TABLET BY MOUTH EVERY DAY WITH A MEAL SOLD: [facility] atorvastatin 10 MG Oral Tablet ATORVASTATIN CALCIUM 05/07/2019 1 2:00:00 AM EDT tablet 30 TAKE ONE TABLET BY MOUTH EVERY D AY TAKE ONE TABLET BY MOUTH EVERY DAY SOLD: 04/01/2020 [facility] 10 mg 05/07/2019 12:00:00 AM EDT tablet 30 TAKE ONE TABLET BY MOUTH EVERY DAY TAKE ONE TABLET BY MOUTH EVERY DAY SOLD: 11/06/2019 [facility] 160 mg 05/07/2019 12:00:00 AM EDT tablet 30 TAKE ONE TABLET BY MOUTH EVERY DAY WITH A MEAL TAKE ONE TABLET BY MOUTH EVERY DAY WITH A MEAL SOLD: [facility] 160 mg 05/07/2019 12:00:00 AM EDT tablet 30 TAKE ONE TABLET BY MOUTH EVERY DAY WITH A MEAL TAKE ONE TABLET BY MOUTH EVERY DAY WITH A MEAL SOLD: [facility] 160 mg 05/07/2019 12:00:00 AM EDT tablet 30 TAKE ONE TABLET BY MOUTH EVERY DAY WITH A MEAL TAKE ONE TABLET BY MOUTH EVERY DAY WITH A MEAL SOLD: [facility] 10 mg 05/07/2019 12:00:00 AM EDT tablet 30 TAKE ONE TABLET BY MOUTH EVERY DAY TAKE ONE TABLET BY MOUTH EVERY DAY SOLD: 07/09/2019 [facility] 160 mg 05/07/2019 12:00:00 AM EDT tablet 30 TAKE ONE TABLET BY MOUTH EVERY DAY WITH A MEAL TAKE ONE TABLET BY MOUTH EVERY DAY WITH A MEAL SOLD: [facility] carvedilol 25 MG Oral Tablet CARVEDILOL 02/13/2019 12:00:00 AM EDT tab let 60 TAKE ONE TABLET BY MOUTH TWICE A DAY WITH FOOD TAKE ONE TABLET BY MOUTH TWICE A DAY WITH FOOD SOLD: 07/09/2019 [facility] 500 mg 12/22/2018 12:00:00 AM EDT tablet 120 TAKE TWO TABLETS BY MOUTH TWICE A DAY WITH MEALS TAKE TWO TABLETS BY MOUTH TWICE A DAY WITH MEALS SOLD: 10/10/2019 [facility] 500 mg 12/22/2018 12:00:00 AM EDT tablet 120 TAKE TWO TABLETS BY MOUTH TWICE A DAY WITH MEALS TAKE TWO TABLETS BY MOUTH TWICE A DAY WITH MEALS SOLD: 09/12/2019 [facility] 500 mg 12/22/2018 12:00:00 AM EDT tablet 120 TAKE TWO TABLETS BY MOUTH TWICE A DAY WITH MEALS TAKE TWO TABLETS BY MOUTH TWICE A DAY WITH MEALS SOLD: 08/08/2019 [facility] 500 mg 12/22/2018 12:00:00 AM EDT tablet 120 TAKE TWO TABLETS BY MOUTH TWICE A DAY WITH MEALS TAKE TWO TABLETS BY MOUTH TWICE A DAY WITH MEALS SOLD: 11/06/2019 [facility] 500 mg 12/22/2018 12:00:00 AM EDT tablet 120 TAKE TWO TABLETS BY MOUTH TWICE A DAY WITH MEALS TAKE TWO TABLETS BY MOUTH TWICE A DAY WITH MEALS SOLD: 12/05/2019 [facility] 500 mg 12/22/2018 12:00:00 AM EDT tablet 120 TAKE TWO TABLETS BY MOUTH TWICE A DAY WITH MEALS TAKE TWO TABLETS BY MOUTH TWICE A DAY WITH MEALS SOLD: 07/09/2019 [facility] Insurance Providers Payer name Policy type / Coverage type Policy ID Covered alliance party ID Covered alliance party's relationship to valera Policy Valera Plan Information [facility] COMMUNITY PLAN [facility] [id number] SP [id number] [facility] [id number] SP [id number] [facility] MEDICA[facility] [id number] S [id number] [facility] MEDICAID [id number] Mary [id number] 21 [facility] I [id number] Self [id number] [facility] MEDICAID [id number] S [id number] [facility] MEDICAID [id number] S [id number] [facility] MEDICAID [id number] S [id number] BC[facility] [id number] S [id number] MEDICAID [id number] S [id number] [facility](MCAID) O [id number] S [id number] [facility] [id number] S [id number] ANSI-Medicaid [id number] ANSI-Commercial [id number] ANSI-Medicaid [id number] ANSI-Medicaid [id number] ANSI-Medicaid [id number] ANSI-Medicaid [id number] ANSI-Medicaid [id number] ANSI-Medicaid [id number] ANSI-Medicaid [id number] ANSI-Medicaid [id number] ANSI-Medicaid [id number] ANSI-Medicaid [id number] ANSI-Commercial [id number] ANSI-Medicaid [id number] ANSI-Medicaid [id number] ANSI-Medicaid [id number] ANSI-Medicaid [id number] ANSI-Medicaid [id number] [facility] [id number] S [id number] ANSI-Medicaid [id number] [facility]-Medicaid [id number] [facility] MEDICAID [id number] S [id number] [facility] MED[facility] [id number] S [id number] [facility] [id number] S [id number] [facility] MEDICAID [id number] S [id number] [facility] [id number] Self [id number] [facility] I [id number] Self [id number] [facility] MEDICAID MCD HMO [id number] S [id number] [facility] MEDICAID [id number] Mary [id number] 22 SELF PAY SP UNAVAILABLE UNAVAILA BLE BLUE CROSS MILIAN PLAN [id number] SP [id number] MEDICAID [id number] SP [id number] Problems, Conditions, and Diagnoses Code Display Name Description Problem Type Effective Dates Data Source(s) Q23.1 91280261 Bicuspid aortic valve Problem 05/11/2020 12: 00:00 AM EDT eCW1 ([facility]) Q23.1 [id number] Bicuspid aortic valv e with ascending aorta greater than 4.0 cm in diameter Problem 05/11/2020 12:00:00 AM EDT eCW1 ([facility]) [id number] Essential hypertension Essential hypertension Problem 02/13/2020 12:00:00 AM EDT [facility] ([facility] ) K58.0 [id number] Irritable bowel syndrome with diarrhea Pr oblem 09/01/2019 12:00:00 AM EST eCW1 ([facility]) K58.0 [id number] Irritable bowel syndrome with diarrhea Pr oblem 09/01/2019 12:00:00 AM EST eCW1 ([facility]) Z12.31 Encounter for screening mammogram for ma lignant neoplasm of breast ENCNTR SCREEN MAMMOGRAM FOR MALIGNANT NEOPLASM OF Diagnosis 07/15/2020 10:00: 00 AM [facility] Z01.419 Encounter for gynecological examination (general) (routine) without abnormal findings ENCNTR FOR AIR CONDITIONING MANAGER EXAM (GENERAL) (ROUTINE) W/O ABN FINDIN GS Diagnosis 07/15/2020 10:00:00 AM [facility] Y93.89 Activity, other specified ACTIVITY, OTHER SPECIFIED Di agnosis 03/25/2020 07:33:00 PM [facility] Y92.[address] of occurrence of the e xternal cause BOAT THE PLACE OF OCCURRENCE OF THE EXTERNAL CA Diagnosis 03/25/2020 07:33:00 PM [facility] W18.39XA Other fall on same level, initial encoun ter OTHER FALL ON SAME LEVEL, INITIAL ENCOUNTER Diagnosis 03/25/2020 07:33:00 PM [facility] Z79.84 CARE HOME (CURRENT) USE OF ORAL HYPOGLYC EMIC DRUGS FINANCIAL SERVICES TECHNICIAN (CURRENT) USE OF ORAL HYPOGLYCEMIC DRUGS Diagnosis 03/25/2020 07:33:00 PM [facility] Z79.82 correction (current) use of aspirin FINANCIAL SERVICES TECHNICIAN (CU RRENT) USE OF ASPIRIN Diagnosis 03/25/2020 07:33:00 PM [facility] Z79.4 correction (current) use of insulin FINANCIAL SERVICES TECHNICIAN (CU RRENT) USE OF INSULIN Diagnosis 03/25/2020 07:33:00 PM [facility] I10 Essential (primary) hypertension ESSENTIAL (PRIMARY) H YPERTENSION Diagnosis 03/25/2020 07:33:00 PM [facility] S20.212A Contusion of left front wall of thorax, initial encounter CONTUSION OF LEFT FRONT WALL OF THORAX, INITIAL EN Diagnosis 03/25/2020 07:33:00 PM [facility] S29.9XXA Unspecified injury of thorax, initial en counter UNSPECIFIED INJURY OF THORAX, INITIAL ENCOUNTER Diagnosis 03/25/2020 07:33:00 PM [facility] R30.0 Dysuria DYSURIA Diagnosis 01/24/2020 11:30:00 AM [facility] N30.00 Acute cystitis without hematuria ACUTE CYSTITIS WITHOUT HEMATURIA Diagnosis 01/09/2020 03:17:00 PM [facility] Z12.4 Encounter for screening for malignant ne oplasm of cervix ENCOUNTER FOR SCREENING FOR MALIGNANT NE Diagnosis 07/09/2019 01:00:00 PM [facility] Surgeries/Procedures Procedure Description Date Indications Data Source(s) Endoscopy Upper GI Remove Tumor/Polyp/Lesion Snare Technique 05/07/2020 12:00:00 AM EDT [facility] Colonoscopy Flexible Proximal To Splenic Flexure W/Biopsy Si ngle/ 05/07/2020 12:00:00 AM EDT [facility] ([facility]) CREATININE BLOOD POCT ISTAT CREATININE Routine 10/09/2019 1:22 PM EDT 10/09/2019 05:22:00 PM [facility] Results ID Date Data Source [id number] 08/14/2020 10:00:00 AM [facility] Name Value Range Interpretation Code Description Data Sivan rce(s) Supporting Document(s) SARS coronavirus 2 RNA Not Detected [facility] [place] This lab was ordered by [facility] and reported by [facility]. ID Date Data Source [id number] 07/12/2020 05:31:45 PM EST [facility] Name Value Range Interpretation Code Description Data Sivan rce(s) Supporting Document(s) &PDF [facility] [id number]RNJDLSHueYQXYBUdniJNRm vci [file] ICAgICAgICAgICAgICAgICAgICAgICAgICAgICAgIC AgICAgICAgICAgICAgICAgICAgICAgICAgICAgICAgICAgICAgICAgICAgICAgICAgICAgICAgICAgIC SoRE3QRELuFJImQJHePEJiDIQrNLBjTOHkFZIlIWKwRQHeHCFkGHKvOJZvOIWxIWUqDTMcQXOuMSEqXV AgICAgICAgICAgICAgICAgICAgICAgICAgICAgICAg KCTlBZHoYXJaXYCfIB4UJRFeYRLgSJHhFKAjNDNhRPCsOGZvBQAmNPOwPQVbCQLnPVApIOTtWUJdWYIw QTDlSEDoGVTwWGCsQSHyKGCjQNLjORSzNBYcAJGzCAZpWFUkDZLlZMJwQAXhDAJxUZMcVLHkYW0GLKQo ICAgICAgICAgICAgICAgICAgICAgICAgICAgICAgIC AgICAgICAgICAgICAgICAgICAgICAgICAgICAgICAgICAgICAgICAgICAgICAgICAgICAgICAgICAgIC KrNFUgOQ6WEEMtODDxUWEzXLGmIVLtRAHcFYLlEXBsRXKlICHhNJCuYDNzDTBgETWjKITiMMCxNKUmSO AgICAgICAgICAgICAgICAgICAgICAgICAgICAgICAg VXIdETKnMTAoGCJxIAUhXH9YONFgRPRcTPBwLKBdLQMzWYBnVNYpCZKoBXYqHEDlUDSgBRWmQUDpKCSm EBNpKKGyFPFfUWQoOWJaLDHdGIBxFKChQSLbHVCcCEXvDDCmMNTeHNOkJRGqVFJoFKKnVDBsFZZzLX3X ICAgICAgICAgICAgICAgICAgICAgICAgICAgICAgIC AgICAgICAgICAgICAgICAgICAgICAgICAgICAgICAgICAgICAgICAgICAgICAgICAgICAgICAgICAgIC CyAHSlEZXxYY4BPANwXAKgNJTuVKSsZAVpFZYxHVAzGYLrZMFxLFMmZIDjUKMcZNGpWKNsISMpZKMbFD AgICAgICAgICAgICAgICAgICAgICAgICAgICAgICAg QRTkECLuZCRwUZRnLRLpKGBcRI9SSNEhKGEaADHeQDAvKAQaSCVoQLXoPZAwVDQnFFGoGMEmOAYeWGVm ICAgICAgICAgICAgICAgICAgICAgICAgICAgICAgICAgICAgICAgICAgICAgICAgICAgICAgICAgICAg ON0TMJ73qSRit2W9HNDjXO9ljnk/Vs5ZFRppahFfbP TiTG2JMtHbOS9ejc2NGrHlPP4hpx6KWCxXQsOeP9D1kKDzPLOgLEZSZbVrR57sBHswBv44SCrbPDPoFq GxSJn1Yk1JIjGmD6yrDSCnLgG1SDTrFbW4XGTvOpA7ANUzGhKdHGdzLN8Rg2MlvBSnMGt+Pu1VWR2nc5 GlBZkwMvHmNS3hgl5YGIvNUvQoU2A3gTVuX8M8HUpd Rb8ZZPTkHEBhFuDiFMYNFQfiRA9OVM1uwdC8IR6DjXDhEGGzHICkoLInKPc7E87gxCEyYVjaST2XAWF+ Melanie+Os7WXETxRJPtXDOmLyNfPSJKAkNrH52iuJGaMXVmDDOpGQKyRz3OHRMqO5RlslNanHabhzPjTLTf UELQIF6USWneunFhlQTauPmiLH65yRzlIZ4MUn4WHu FnYC5oig6CfXSiWl6SCLRpAX9DZGYkXSTuAHRhLKE3AHOqWeHfIVwwYHMwFGJoMRF1TSYcFTAgYU5UVh VlFCJoBnWcYbTqIHWeGDLdio0DGEOiWBEwPJv4SLWjZZEoUKVkLJvoSJKvHSKwBRfhXYUwVFVmQP8KAb YfWBWvIXL7JCguERYiLTQgxg1MRSOzKUJnHeloTEKg NJLmSCUqYVdrROHvGSL9HzF1EBIrSOVlZU0QGvWeEWRmWFA3HxCeIQMxLUGdkh7RAGNbPCKuYpM9KbMr ODVyTRWkLMpzLQVqFDU4SNO5TGRrLWJgPP3UPtWzMILxXTf8UrxpNVTuDPHfhl2WJMQnOWYvCDWdTTFs DITaOXMrBIquIHPaNZN8KPE0AYMnFUYdLY5DRjMsHS EtWKk9XpPyFGKoDBRtcr6JAXTtCMQuGTg8XKCoJPZpYAKkYIhrAMVwHKXaVXV3WPJuYSJhKY5TWhNzPL TkGYMlUHRxKXZdCQOrji0BCDWtUITpLPEfPDKhQWBjAOSfDJzrSCOeDKIrNPUjMCUvLTPsYR0IQpFbOS ZjWYnvBUVbAKUqNXOuxj4MPSWwIESgYUXuRUXoSXCi ILEyVAkqCOUdKXEwBjCjHRSnFYGeOH9UJlWiRZBzPbYgETMoZPBvTHWldt4GxFIykTpfjl2ZICyXEn5P uDivZSI3PCzyKg4bnQTeCmMpNZJEGz8DkbQyGGKsBYNOOLihOQUfHCO0ZYAuJ0GuKrY4CHHrNRFvMMu3 E6CkY3C9ZBg4IBipYnI8BSDgPLKmSWGtOBwsZyH4UQ ToJgcqXHHfJGBoBiIxG8F+ER4oAWh+Oc0Xa2YythU1wcLnNGznGvK0NC8FTNPMV7OYBd== ID Date Data Source [id number] 05/11/2020 10:41:00 AM EDT [facility] ([facility], ) Name Value Range Interpretation Code Description Data Sivan rce(s) Supporting Document(s) Calprotectin [Mass/mass] in Stool 53 ug/g 0-120 Normal (applies to non-numeric results) [facility] ([facility]) <content>Concentration Interpretatio n Follow-Up</content>
<content><16 - 50 ug/g Normal None</content>
<content>>50 -120 ug/g Borderline Re-evaluate in 4-6 weeks</content>
<content>>120 ug/g Abnormal Repeat as clinically</content>
<content>indicated</content>
<content></content> Lactoferrin [Presence] in Stool by Immunoassay Laboratory test r esult Normal (applies to non-numeric results) [facility] Helicobacter pylori Ag [Presence] in Stool Laboratory test resul t Abnormal (applies to non-numeric results) [facility] Performed at: [facility] [address] [id number] Body Stylist: Catarino Hernandez MD, Phone: [phone] Performed at: [facility] [address] [id number] Body Stylist: Galina Whiting MD, Phone: [phone] ID Date Data Source [id number] 05/11/2020 08:18:00 AM EDT [facility] ([facility]) Name Value Range Interpretation Code Description Data Sivan rce(s) Supporting Document(s) Ferritin [Mass/volume] in Serum or Plasma 12 ng/mL 8-252 Normal (applies to non- numeric results) [facility] ([facility]) ID Date Data Source [id number] 05/11/2020 08:18:00 AM EDT [facility] ([facility]) Name Value Range Interpretation Code Description Data Sivan rce(s) Supporting Document(s) Iron (Fe) 46 ug/dL 50-170 Below low normal [facility] Percent Saturation 9.3 % 13.2-45.0 Below low normal [facility] Total Iron Binding Capacity 496 ug/dL 250-450 Above high normal [facility] ID Date Data Source [id number] 05/11/2020 08:18:00 AM EDT [facility] ([facility]) Name Value Range Interpretation Code Description Data Sivan rce(s) Supporting Document(s) IgA Serum (part of Subclasses) 198 mg/dL 87-352 N ormal (applies to non-numeric results) [facility] ([facility]) Igasub3 25.8 mg/dL 13.4-97.9 Normal (applies to non-numeric resul ts) [facility]) Igasub2 135.8 mg/dL 73.2-301.2 Normal (applies to non-numeric resu lts) [facility]) ID Date Data Source [id number] 05/11/2020 08:18:00 AM EDT [facility] ([facility]) Name Value Range Interpretation Code Description Data Sivan rce(s) Supporting Document(s) Tissue transglutaminase IgA Ab [Units/volume] in Serum 2 U/mL 0-3 Normal (applies to non-numeric results) [facility]) Negative 0 - 3 Weak Positive 4 - 10 Positive >10 . Tissue Transglutaminase (tTG) has been identified as the endomysial antigen. Studies have demonstr- ated that endomysial IgA antibodies have over 99% specificity for gluten sensitive enteropathy. Performed at: [facility] [id number] Body Stylist: Galina Whiting MD, Phone: [phone] Performed at: - [address] [id number] Body Stylist: Catarino Hernandez MD, Phone: [phone] ID Date Data Source [id number] 05/10/2020 11:58:36 AM EDT [facility] Name Value Range Interpretation Code Description Data Sivan rce(s) Supporting Document(s) Progress Note [facility] OYKVHg2oVbMBZbDt31/AWTbbBKLzj5ZvPKzrGCp5AJhfRPVzS8MgKZW7oB7dSIS6FAwXMtCfGmQtXTDr lbm [file] AgICAgICAgICAgICAgICAgICAgICAgICAgICAgICAgICAgICAgICAgICAgICAgICAgICAgICAgICAgIC AgICAgICAgICAgICAgICAgICAgICAgICANCiAgICAg ICAgICAgICAgICAgICAgICAgICAgICAgICAgICAgICAgICAgICAgICAgICAgICAgICAgICAgICAgICAg ICAgICAgICAgICAgICAgICAgICAgICAgICAgICAgICAgICANCiAgICAgICAgICAgICAgICAgICAgICAg ICAgICAgICAgICAgICAgICAgICAgICAgICAgICAgIC AgICAgICAgICAgICAgICAgICAgICAgICAgICAgICAgICAgICAgICAgICAgICANCiAgICAgICAgICAgIC AgICAgICAgICAgICAgICAgICAgICAgICAgICAgICAgICAgICAgICAgICAgICAgICAgICAgICAgICAgIC AgICAgICAgICAgICAgICAgICAgICAgICAgICANCiAg ICAgICAgICAgICAgICAgICAgICAgICAgICAgICAgICAgICAgICAgICAgICAgICAgICAgICAgICAgICAg ICAgICAgICAgICAgICAgICAgICAgICAgICAgICAgICAgICAgICANCiAgICAgICAgICAgICAgICAgICAg ICAgICAgICAgICAgICAgICAgICAgICAgICAgICAgIC AgICAgICAgICAgICAgICAgICAgICAgICAgICAgICAgICAgICAgICAgICAgICAgICANCiAgICAgICAgIC AgICAgICAgICAgICAgICAgICAgICAgICAgICAgICAgICAgICAgICAgICAgICAgICAgICAgICAgICAgIC AgICAgICAgICAgICAgICAgICAgICAgICAgICAgICAN CiAgICAgICAgICAgICAgICAgICAgICAgICAgICAgICAgICAgICAgICAgICAgICAgICAgICAgICAgICAg ICAgICAgICAgICAgICAgICAgICAgICAgICAgICAgICAgICAgICAgICANCiAgICAgICAgICAgICAgICAg ICAgICAgICAgICAgICAgICAgICAgICAgICAgICAgIC AgICAgICAgICAgICAgICAgICAgICAgICAgICAgICAgICAgICAgICAgICAgICAgICAgICANCiAgICAgIC AgICAgICAgICAgICAgICAgICAgICAgICAgICAgICAgICAgICAgICAgICAgICAgICAgICAgICAgICAgIC AgICAgICAgICAgICAgICAgICAgICAgICAgICAgICAg ICANCjw/lNAiP0iugJRznxX9M3yzXg0GIb2KNI7nk6FrFEHaIMnrndBeIkhNBnDbAIZjHqlNJtg3FAks IF4HtTLlZ3WeO7YfKIzkHZ3PWIDrYCQolPCqUKQhWFLpLsE1TLFqTWjnDG8BvDNrASbpLDVuOBNxZxQh MCJrVGKdXHMsZR2OYFMmB952tjFbBi4LAw7STbTvSE 3guy8EUuslILAbZiwZUke3PIsiYP6YjROniXXeLFAnQPNIFeKiK3jkg4YlKwNcINFAOXclEG4Be6JsfE AxDQo+Vv4FZZ4pv7FzQMjsYAYoZY0zrf0PXUiQMcFgH3MqzMmiMNWsv7weNRGtDG5ifGNzBVU9RAtbBn IrSIVlyHHHyqKyzozcDPPrZIMcNZ5eMW5wRSLePYOr SjFbLKGMCJ5ULQViBRPfdNNdATHzRCOUVI6OUPhgAVX1NEOlbuIulPYkPNxaWK7GSIIcqoNjYbdxDPLM DQo+Xd9SKS8ua8KzKUlzQSPrUY4hdh2MBEuAQlOzO2Z0mLYaG5Y1PLipVc7FTIHnFFIiXzbyHHGVKEhs IU8OCT5rieJ8TV9QcNYkXJQsIHCphEGkBGi7W69rtX OqSGdhYI6QRDU+Melanie+Ah8FBERmSDOiWXKsBrOsRCKMOaVjE6HuE9IQu5IfE0NwKO41nPgylvXrMZkcTW 6ZXH9iBUXpYASLJE6FiQCwbK6qpdRmHDPyLBIDFgJyZ75jgOEbPUAcOQE9PPMkWp5NDPBcA7FduoXjnQ iaxjFwQPZmOOFPQP3KWGsvdaSmsBAmcDvuWY42nFdm BL3BMi8OQmTiSI2rco8RfVUfZq1MNFEqSk1TJZBkRIDgWLRqQKB8GDEuGaVeOBwnZKHvYSSeBKE8UJKr FOUyYX8NAaQlNFRyOzW0QhDhPEOvZGJafq6FSFKwNHBoTFMmQEQoOJYoWBDiDEopDJLbHSRpQUV8BEAe MXAaQN4XWbRqNIAiVCGhSQsiITAvXZUzro0QCUIzRJ VaQOO4OiAeOBYdDHUjFGtbPJKeOYU9HMCxCHNuHLHuXL6NLtDkIAPqBMlkUSJlYCJgJLUfcm8BLTPpXR CkPWM9WYDcYCLeQNYqZZirYQRxKEJ2ObqoHITzZWSaGH2WOoIcEIUlFEp4TANvMYYbFIUemt3COGWmWS AwOTkzOSAwMDAwMCBuDQowMDAwMDEwMTIyIDAwMDAw WC4NWfXtXKVbIGPaZYMxUGVpPMSehv1XOHTjPARsKCX9MuXkAIKjUXJrPVgiMPDpTEUrLTkgIDBdSGUj EF9BAsJgACOhRfG7RIJxDZWtTFAevf6UYIAeIWNoWuZyLlTgVWWkVTJzYAgqEWMnAQFvHVI2FFYoPAZm YL7FCyRqVFJiSxH9YALcKLFrTBTxiq0JDCYnDGZnQx vgJLLlGTTeFYMpZPylDHYrWWU0Bmc6GCVwJIElQB3HQxNmGQWoLcK9AtVdHQReWPBhcj9KKPZpAWMeWD G6PvZsDLGdNPSrGMlqHDFxSZR3IEf3GQAeVETcZC3MUqGrXQMlCyTnAuFpCNPxTVAuqk3NJQEoAJKpZp P9JvItXDYtCNZoGQzkEBWkRXR9LFm0GZIaJFUyHB7Z MkLjHQToHorfIvTuKNImROGdkx8QXGTbUDDtPHImUdTkWFHnGSZoUSmeECIgWBT4LBC9KOJrHHTiHS9E TbRtOVdfWMZQSah5GVbhG0j1NQKhRw3OJ9Vtq1EpKpQjRTQNMTcnDJ2jkyCaXIHrUq4PZ5kZSxieSLE1 BFWaTDVkZHr5SsTsKEMzDPF4VGCvPph1QbSwHO9rVQ V2BRJeT8U9J0DiYNO8TRB8SXVrIWmpAbOcWIkqTMToRyGvFY6YDq3GJmZ9QGT6vEBrSv4SBuv9CCYADc HvYJ6DJKt= ID Date Data Source [id number] 05/07/2020 12:10:00 PM EDT [facility] ([facility], ) Name Value Range Interpretation Code Description Data Sivan rce(s) Supporting Document(s) Surgical pathology study Laboratory test result [facility] ([facility], ) <content>FINAL DIAGNOSIS</content>
< content></content>
<content>A - Small bowel, biopsy:</content>
<content>Small bowel mucosa with villous architecture.</content>
<content>No evidence of celiac disease.</content>
<content></content>
<content>B - Stomach, biopsy:</content>
<content>Gastric mucosa with no significant pathologic changes.</content>
<content>No H. pylori like organisms on H & E stain.</content>
<content></content>
<content>C - Stomach, polyp, polypectomy:</content>
<content>Fundic gland polyp with mixed features of hyperplastic polyp.</content>
<content>No H. pylori like organisms on H & E stain.</content>
<content>No evidence of dysplasia.</content>
<content ></content>
<content>D - Colon, random biopsies:</content>
<content>One fragment of tubular adenoma.</content>
<content>No evidence of microscopic colitis.</content>
<content>05/10/2020 - 1431</content>
<content></content>
<content>CLINICAL DIAGNOSIS</content>
<content></content>
<content>Gastric reflux, chronic diarrhea</content>
<content>05/10/2020 - 804</content>
<content></content>
<content>GROSS DIAGNOSIS</content>
<content></content>
<content>A - Received in formalin labeled "biopsy small bowel R/O celiac" and are</content>
<content> three fragments of ivan tissue measuring 0.5 x 0.3 x 0.2 cm. All in</content>
<content>one.</content>
<content></content>
<content>B - Received in formalin labeled "gastric biopsy R/O H. pylori" and are</content>
<content>two fragments 0.4 x 0.2 x 0.2 cm. All in one.</content>
<content></content>
<content>C - Received in formalin labeled "gastric polyp polypectomy" and is one</content>
<content>polypoid ivan tissue 1.2 x 1.2 x 1.0 cm. All in one.</content>
<content></content>
<content>D - Received in formalin labeled "random colon biopsies R/O microscopic</content>
<content>colitis" and are multiple fragments 0.4 x 0.3 x 0.2 cm. All in one.</content>
<content>-SV</content>
<content>05/10/2020804</content>
<content></content>
<content>Signed BETHANY BROCK MD 05/11/2020 1007</content>
<content></content> ID Date Data Source [id number] 05/07/2020 10:08:00 AM EDT [facility] ([facility], ) Name Value Range Interpretation Code Description Data Sivan rce(s) Supporting Document(s) Glucose [Mass/volume] in Capillary blood by Glucometer 103 mg/dL 70-105 Normal (applies to non-numeric results) [facility] ([facility], ) ID Date Data Source [id number] 05/02/2020 11:00:00 AM EDT [facility] Name Value Range Interpretation Code Description Data Sivan rce(s) Supporting Document(s) SARS coronavirus 2 RNA [facility] This lab was ordered by [facility] and reported by [facility]. ID Date Data Source [id number] 04/09/2020 02:03:12 PM EDT [facility] CT ANGIOGRAPHY THORAX [id number] RESULTI nterpreted by:Jose Narvaez MDINDICATION: Bicuspid aortic valve with aneurysmal dilatation of the ascending aorta. Follow-up examination. TECHNIQUE: CT for assessment of the aorta. Radiographic contrast was given using a power injector according to an angiographic protocol. A set of 1 mm sections was obtained using a cardiac-gated volumetric acquisition to include the root of the aorta.Automated dose lowering techniques and/or adjustment according to patient size were utilized for this exam.COMPARISON: 10/09/2019 and 04/10/2019.FINDINGS: There is a small sclerotic focus in the T10 vertebral body that is unchanged relative to a prior CT scan from 08/23/2017. Otherwise the included portion of the chest wall is unremarkable.The mediastinum is free of lymphadenopathy. The heart size is within normal limits.There are no anatomic anomalies of the origins of the coronary arteries. The right coronary artery is a nondominant vessel. Calcified plaques are present in both the circumflex coronary artery and the LAD, but there is no obvious significant stenosis. The aortic valve is bicuspid, with a right-left cusp orientation.Aortic dimensions at the standard locations are as follows:* Sinuses of Valsalva, 3.5 cm.* Sinotubular junction, 3.8 cm, compared to 4.1 cm previously.* Mid ascending aorta, 4.6 cm, compared to 4.8 cm previously.* Proximal aortic arch, 4.1 cm, compared to 4.3 cm previously.* Midaortic arch, 2.9 cm, compared to 3.3 cm previously.* Proximal descending aorta, 2.1 cm, compared to 2.4 cm previously.* Mid descending aorta, 2.1 cm, compared to 2.3 cm previously.The transverse dimension of the mid ascending aorta currently is 4.6 cm, compared to 4.9 cm at the same anatomic level on 08/23/2017.I see no findings of pericardial disease. The visualized pleural surfaces are unremarkable.The included portions of both lungs are clear.IMPRESSION:1. The aortic valve is bicuspid, with a right-left cusp orientation.2. The ascending aorta is aneurysmally dilated, but its diameter is unchanged or slightly improved relative to the previous examinations dating back to 2018.3. Left dominant coronary artery circulation.4. Calcified plaques are present in the left-sided coronary vessels, without obvious significant stenosis. However, the presence of calcified plaques in a patient of this age is unusual. The probability of a nonzero calcium score for a white female of age 48 years is 13%.This document has been electronically signed by Jose Narvaez MD on 04/09/2020 2:01 PM Name Value Range Interpretation Code Description Data Sivan rce(s) Supporting Document(s) ID Date Data Source [id number] 04/09/2020 02:08:02 PM EDT [facility] Name Value Range Interpretation Code Description Data [facility] rce(s) Supporting Document(s) Creatinine [Mass/volume] in Blood 0.7 mg/dL 0.50-0.90 [facility] ID Date Data Source [id number] 04/04/2020 04:00:00 PM EDT [facility] Patient: INO FAGAN Observation Report - Physicians/[facility].VisitID: [id number] [place] [address] [phone], FRegistration Date/Time: 03/25/2020 16:10 Weight:78 kg (S). Height/Length:62 inches (S). BMI:31.5 PAST HISTORYProblems:Gastroesophageal Reflux Disease.Epiglottitis. (Hospitalized for over a month (in high school))Heart Disease.ASCENDING THORACIC AORTIC ANEURYSM. (4.9CM CURRENTLY )Abdominal Pain.Bicuspid aortic valve.Hypertension.Thoracoabdominal aortic aneurysm.Renal Colic.UTI - Urinary Tract Infection.Ureterolithiasis.Pneumonia.Hypomagnesemia.Hypokalemia.Ovarian Cyst.Nephrolithiasis. Additional Surgeries:. (X2)Kidney stents.Kidney stone removed from left kidney.Tonsillectomy.Tubal Ligation. Medication s:Dicyclomine HCl Oral 20 mg, 2x a day, last dose today.Aspirin Adult Low Dose Oral (Tablet Delayed Release 81 mg) 1 tablet, daily, last dose TODAY.Atorvastatin Calcium Oral (Tablet 10 mg), daily every AM, last dose TODAY.Coreg Oral (Tablet 25 mg) 1 tablet, 2x a day, last dose TODAY.Fenofibrate Oral (Tablet 160 mg), daily, last dose TODAY.Iron pill, daily, last dose TODAY.Krill Oil Oral, daily, last dose TODAY.Lisinopril- Hydrochlorothiazide Oral (Tablet 20-25 mg) 1 tablet, daily, last dose TODAY.MetFORMIN HCl Oral (Tablet 500 mg) 2 tablets, 2x a day, last dose TODAY.Omeprazole Oral 40 mg, daily, last dose TODAY.Trulicity Subcutaneous (Solution Pen-injector 1.5 mg/0.5mL), once a week, last dose SUNDAY.Vitamin c Oral, 3x a week, last dose TODAY.Womens One Daily Oral, daily, last dose TODAY. Allergies:No Known Drug Allergy. FAMILY HISTORYNegative. No significant family medical history. (Electronically signed by Christel Castro 03/26/2020 10:30) Name Value Range Interpretation Code Description [facility] Document(s) ID Date Data Source [id number] 03/25/2020 07:00:00 PM EDT [facility] DATE OF EXAMINATION: 03/25/2020 17:52 EDT TECHNIQUE: 5 views of the left ribs were obtained. HISTORY: Trauma There is a normal alignment and position of the bones of the thorax. Nofractures are identified. No evidence for pneumothorax is noted. IMPRESSION: Unremarkable rib series. Electronically signed in [id number] by: Hung Irizarry M.D. 03/25/2020 18:55 EDT Name Value Range Interpretation Code Description Data Sivan rce(s) Supporting Document(s) ID Date Data Source [id number] 01/27/2020 02:05:00 PM EDT [facility] jim Name Value Range Interpretation Code Description Data Sivan rce(s) Supporting Document(s) ORGANISM [facility] COLONY COUNT N [facility] ID Date Data Source [id number] 01/24/2020 12:35:00 PM EDT [facility] Name Value Range Interpretation Code Description Data Sivan rce(s) Supporting Document(s) URINE RBC 0-2 /hpf 0-3 [facility] URINE WBC 5-10 /hpf 0-5 [facility] URINE BACTERIA TRACE NONE SEEN [facility] ID Date Data Source [id number] 01/24/2020 12:11:00 PM EDT [facility] Name Value Range Interpretation Code Description Data Sivan rce(s) Supporting Document(s) URINE COLOR. [facility] URINE APPEARANCE CLEAR [facility] SPECIFIC GRAVITY,URINE 1.005 1.001-1.035 [facility] URINE LEUKOCYTE ESTERASE 2+(MODERATE) NEGATIVE [facility] URINE NITRATE NEGATIVE NEGATIVE [facility] PH,URINE 6.0 5.0-9.0 [facility] URINE PROTEIN NEGATIVE mg/dL NEGATIVE [facility] URINE GLUCOSE (UA) NEGATIVE mg/dL NEGATIVE [facility] URINE KETONE NEGATIVE mg/dL NEGATIVE [facility] URINE UROBILINOGEN 0.2 mg/dL 0-1 [facility] URINE BILIRUBIN NEGATIVE NEGATIVE [facility] URINE BLOOD TRACE NEGATIVE [facility] ID Date Data Source [id number] 01/09/2020 [facility]23[facility] Name Value Range Interpretation Code Description Data Sivan rce(s) Supporting Document(s) URINE COLOR. [facility] URINE APPEARANCE CLOUDY [facility] SPECIFIC GRAVITY,URINE 1.025 1.001-1.035 [facility] URINE LEUKOCYTE ESTERASE 1+(SMALL) NEGATIVE [facility] URINE NITRATE NEGATIVE NEGATIVE [facility] PH,URINE 5.0 5.0-9.0 [facility] URINE PROTEIN 1+(30) mg/dL NEGATIVE [facility] URINE GLUCOSE (UA) NEGATIVE mg/dL NEGATIVE [facility] URINE KETONE NEGATIVE mg/dL NEGATIVE [facility] URINE UROBILINOGEN NORMAL(0.2-1) mg/dL 0-1 [facility] URINE BILIRUBIN NEGATIVE NEGATIVE [facility] URINE BLOOD 1+(SMALL) NEGATIVE [facility] ID Date Data Source [id number] 01/09/2020 04:24:00 PM EDT [facility] l Name Value Range Interpretation Code Description Data Sivan rce(s) Supporting Document(s) URINE RBC 3-5 /hpf 0-3 H [facility] URINE WBC 20-25 /hpf 0-5 H [facility] URINE EPITHELIAL CELLS 1+ /hpf 0 [facility] URINE BACTERIA 2+ NONE SEEN [facility] ID Date Data Source [id number] 01/12/2020 02:10:00 PM EDT [facility] l Name Value Range Interpretation Code Description Data Sivan rce(s) Supporting Document(s) URINE CULTURE, ROUTINE Final report . [facility] 01/12/20 1410: URINE CULT, RT previousl y reported as: Preliminary report H UC RESULT1 Comment . [facility] 01/12/20 1410: UC RESULT1 previously re ported as: Gram negative rods H 25,000-50,000 colony forming units per mL Performed at: RN - [facility] [address] [id number] Body Stylist: Galina Whiting MD, Phone: [phone] coli, identified by an automated biochemicalsystem.25,000-50,000 colony forming units per mLCefazolin <=4 ug/mLCefazolin with an VALENTIN <=16 predicts susceptibility to theoral agents cefaclor, cefdinir, cefpodoxime, cefprozil,cefuroxime, cephalexin, and loracarbef when used fortherapy of uncomplicated urinary tract infections due to E.coli, Klebsiella pneumoniae, and Proteus mirabilis. UC RESULT5 Comment . [facility] S = Susceptible; I = Intermedia te; R = Resistant P = Positive; N = Negative MICS are expressed in micrograms per mL Antibiotic RSLT#1 RSLT#2 RSLT#3 RSLT#4Amoxicillin/Clavulanic Acid SAmpicillin RCefepime SCeftriaxone SCefuroxime SCiprofloxacin SErtapenem SGentamicin SImipenem SLevofloxacin SMeropenem SNitrofurantoin S Piperacillin/Tazobactam STetracycline STobramycin STrimethoprim/Sulfa SPerformed at: RN - [facility] [address] [id number] Director: Galina Whiting MD, Phone: [phone] ID Date Data Source [id number] 01/12/2020 02:05:00 PM EDT [facility] Name Value Range Interpretation Code Description Data Sivan rce(s) Supporting Document(s) Urine Culture, Routine Final report Abnormal (applies to non-numeric results) [facility] ID Date Data Source [id number] 01/12/2020 02:05:00 PM EDT [facility] Name Value Range Interpretation Code Description Data Sivan rce(s) Supporting Document(s) Result 1 Abnormal (applies to non-numeric results ) [facility] Escherichia coli, identified by an autom ated biochemical system.25,000-50,000 colony forming units per mLCefazolin <=4 ug/mLCefazolin with an VALENTIN <=16 predicts susceptibility to the oral agentscefaclor, cefdinir, cefpodoxime, cefprozil, cefuroxime, cephalexin,and loracarbef when used for therapy of uncomplicated urinary tractinfections due to E. coli, Klebsiella pneumoniae, and Proteusmirabilis. Antimicrobial Susceptibility [facility] S = Susceptible; I = Intermedia te; R = Resistant P = Positive; N = Negative MICS are expressed in micrograms per mL Antibiotic RSLT#1 RSLT#2 RSLT#3 RSLT#4Amoxicillin/Clavulanic Acid SAmpicillin RCefepime SCeftriaxone SCefuroxime SCiprofloxacin SErtapenem SGentamicin SImipenem SLevofloxacin SMeropenem SNitrofurantoin S Piperacillin/Tazobactam STetracycline STobramycin STrimethoprim/Sulfa S ID Date Data Source [id number] 10/27/2019 01:28:35 PM EDT [facility] Name Value Range Interpretation Code Description Data Sivan rce(s) Supporting Document(s) Progress Note [facility] LUSZYb2bSwPUDwBg08/LYTqjGYXsk4NqWZlgYDi6[id number] lbm [file] [id number]== ID Date Data Source [id number] 10/13/2019 02:25:15 PM T [facility] CT ANGIOGRAPHY THORAX [id number] RESULTI nterpreted by:Albert Black MDINDICATION: Ascending aortic aneurysm.TECHNIQUE: Gated axial CT angiographic scans from the thoracic inlet through the domes of the diaphragm were obtained including the aortic root with IV contrast. Coronal, sagittal and 3-D views were reformatted. Automated dose lowering techniques and/or adjustment according to the patient size were utilized for this exam.COMPARISON: CT thorax without contrast dated 04/10/2019.FINDINGS: VESSELS: There is no evidence of central or lobar pulmonary vessel embolism. Pulmonary arteries are normal in caliber. Moderate atherosclerotic calcification of the coronary arteries are again noted.The aortic valve is bicuspid. Aortic dimensions as standard locations are as follows:1. Sinotubular junction, 4.3 cm.2. Mid ascending aorta, 4.9 cm.3. Proximal aortic arch, 4.2 cm4. Mid aortic arch, 3.1 cm.5. Proximal descending aorta, 2.7 cm.6. Mid descending aorta, 2.4 cm.7. Distal descending aorta, 2.2 cmHEART AND PERICARDIUM: Heart size is normal. There is no right cardiac strain. There is no pericardial effusion.LUNGS AND CENTRAL AIRWAYS: Lungs are partially visualized. Visualized lungs mayo are clear. The trachea and large bronchi are patent.MEDIASTINUM AND TRICIA: There is no lymphadenopathy or masses. BONES: The visualized osseous structures and chest wall are unremarkable. IMPRESSION:Stable aneurysmal dilation of the ascending aorta measuring up to 4.9 cm.This document has been electronically signed by Jose Narvaez MD on 10/13/2019 2:23 PM Name Value Range Interpretation Code Description Data Sivan rce(s) Supporting Document(s) ID Date Data Source [id number] 10/09/2019 01:25:43 PM T [facility] Name Value Range Interpretation Code Description Data Sivan rce(s) Supporting Document(s) Creatinine [Mass/volume] in Blood 0.8 mg/dL 0.50-0.90 [facility] ID Date Data Source OMER TITER & PATTERN 09/01/2019 12:00:00 AM EST eCW1 ([facility]) Name Value Range Interpretation Code Description Data Sivan rce(s) Supporting Document(s) Negative . OMER (HEP2) eCW1 ([facility]) ID Date Data Source LYME DISEASE SCRN WITH CONFIRM 09/01/2019 12:00:00 AM EST eC W1 ([facility]) Name Value Range Interpretation Code Description Data Sivan rce(s) Supporting Document(s) <0.80 0.00-0.79 Lyme Disease IgM Ab Quant itati eCW1 ([facility]) <0.91 0.00-0.90 Lyme Disease IgG/IgM Anti rosetta eCW1 ([facility]) ID Date Data Source CYCLIC CITRULLINATED PEPTIDE 09/01/2019 12:00:00 AM EST eCW1 ([facility]) Name Value Range Interpretation Code Description Data Sivan rce(s) Supporting Document(s) 11 0-19 CYCLIC CITRULLINATED PEPTIDE e CW1 ([facility]) ID Date Data Source RHEUMATOID FACTOR QUANT 09/01/2019 12:00:00 AM EST eCW1 ([facility]) Name Value Range Interpretation Code Description Data Sivan rce(s) Supporting Document(s) < 10.0 <15.0 RHEUMATOID FACTOR QUANT eCW1 ( [facility]) ID Date Data Source ERYTHROCYTE SEDIMENTATION RATE 09/01/2019 12:00:00 AM EST eC W1 ([facility]) Name Value Range Interpretation Code Description Data Sivan rce(s) Supporting Document(s) 12 0-20 ERYTHROCYTE SEDIMENTATION RATE eCW1 ([facility]) ID Date Data Source C REACTIVE PROTEIN QUANTITATIV (At [facility]) 09/01/2019 12:00 :00 AM EST eCW1 ([facility]) Name Value Range Interpretation Code Description Data Sivan rce(s) Supporting Document(s) < 0.30 0.00-0.30 C REACTIVE PROTEIN QUANTI TATIV eCW1 ([facility]) ID Date Data Source [id number] 07/09/2019 04:02:00 PM EST [facility] Specimen Comment: Source.............Cer vix;EndocervixSpecimen Comment: No. of containers..01 ThinPrep Vial Name Value Range Interpretation Code Description Data Sivan rce(s) Supporting Document(s) REFLEX PAP Comment . [facility] The HPV DNA reflex criteria were not met with this specimenresult therefore, no HPV testing was performed.Performed at: [address] [id number] Director: Steven Chapman MD, Phone: [phone] DIAGNOSIS: Comment . [facility] NEGATIVE FOR INTRAEPITHELIAL LESION OR M ALIGNANCY. SPECIMEN ADEQUACY: [facility] . [facility] Satisf[facility] for evaluation. No endocer vical component is identified. PERFORMED BY: Comment . [facility] Sharita Galeano Open Soaper Tender ([facility]) . . . [facility] NOTE: Comment . [facility] The Pap smear is a screening test design ed to aid in thedetection of premalignant and malignant conditions of theuterine cervix. It is not a diagnostic procedure andshould not be used as the sole means of detecting cervicalcancer. Both false-positive and false-negative reports dooccur. ID Date Data Source [id number] 07/11/2019 08:06:00 AM EST [facility] Name Value Range Interpretation Code Description Data Sivan rce(s) Supporting Document(s) Pap Lb, rfx HPV all pth [facility] p TESTS RESULT FLAG UNI TS REF RANGE LAB Clinician Provided Cytology Information Source.............Cervix;Endocervix No. of containers..01 ThinPrep VialDIAGNOSIS: 01 NEGATIVE FOR INTRAEPITHELIAL LESION OR MALIGNANCY.Specimen adequacy: 01 Satisfactory for evaluation. No endocervical component is identified.Performed by: Sloane Galeano Open Soaper Tender ([facility]). 01Note: Note 01 The Pap smear is a screening test designed to aid in the detection of premalignant and malignant conditions of the uterine cervix. It is not a diagnostic procedure and should not be used as the sole means of detecting cervical cancer. Both false-positive and false-negative reports do occur. . 01 The HPV DNA reflex criteria were not met with this specimen result therefore, no HPV testing was performed. FLAG LEGEND: L-Low Normal,H-High Normal,LL-Alert Low,HH-Alert High <-Panic Low,>-Panic High,A-Abnormal,AA-Critical Abnormal Performed at:[address] [id number] Steven Chapman MD, ID Date Data Source PAP REFLEX HPV 07/09/2019 12:00:00 AM EST eCW1 ([facility]) Name Value Range Interpretation Code Description Data Sivan rce(s) Supporting Document(s) Comment . REFLEX PAP eCW1 ([facility]) Comment . PERFORMED BY: eCW1 ([facility]) . . . eCW1 ([facility]) Comment . DIAGNOSIS: eCW1 ([facility]) Comment . SPECIMEN ADEQUACY: eCW1 ([facility]) Comment . NOTE: eCW1 ([facility]) Procedure Social History Code Duration Value Status Description Data Source(s ) Smoking 08/13/2020 12:00:00 AM EST Never Smoker completed Never S [facility] eCW1 ([facility]) Smoking 05/11/2020 12:00:00 AM EDT Never Smoker completed Never S [facility] eCW1 ([facility]) Alcohol intake 04/08/2020 12:00:00 AM EDT Current drinker of al cohol (finding) completed Current drinker of alcohol (finding) [facility] Tobacco use and exposure 04/08/2020 12:00:00 AM EDT Never used co mpleted Never used [facility] Smoking 04/08/2020 12:00:00 AM EDT Never smoker completed Never s [facility] Alcohol intake 10/09/2019 12:00:00 AM EDT Current drinker of al cohol (finding) completed Current drinker of alcohol (finding) [facility] Smoking 10/09/2019 12:00:00 AM EDT Never smoker completed Never s [facility] Vital Signs ID Date Data Source UNK Name Value Range Interpretation Code Description Data Source(s) Oxygen saturation in Arterial blood by Pulse oximetry 98 % 98 % eCW1 ([facility]) Respiratory rate 16 /min 16 /min eCW1 ([facility]) Heart rate 74 /min 74 /min eCW1 ([facility]) Body mass index (BMI) [Ratio] 33.38 kg/m2 33.38 kg/m2 eCW1 ([facility]) Body weight 179.6 [lb_av] 179.6 [lb_av] eCW1 ([facility]) Body height 61.5 [in_i] 61.5 [in_i] eCW1 ([facility]) Body surface area Derived from formula 1.84 m2 1.84 m2 [facility] ([facility]) Body weight 81.648 kg 81.648 kg [facility] ([facility]) Watrous body weight 110 [lb_av] 110 [lb_av] MEDEN T ([facility]) Body mass index (BMI) [Ratio] 32.4 kg/m2 32.4 k g/m2 [facility] ([facility]) Body weight 180.00 [lb_av] 180.00 [lb_av] MEDEN T ([facility]) Body height 62.5 [in_i] 62.5 [in_i] [facility] ([facility]) 5'2.50" Diastolic blood pressure 82 mm[Hg] 82 mm[Hg] [facility] Systolic blood pressure 144 mm[Hg] 144 mm[Hg] M EDENT ([facility]) Diastolic blood pressure 97 mm[Hg] 97 mm[Hg] eCW1 ([facility]) Systolic blood pressure 149 mm[Hg] 149 mm[Hg] e CW1 ([facility]) Body temperature 96.7 [degF] 96.7 [degF] eCW1 ( [facility]) Respiratory rate 16 /min 16 /min eCW1 ([facility]) Heart rate 73 /min 73 /min eCW1 [facility] Body mass index (BMI) [Ratio] 31.82 kg/m2 31.82 kg/m2 eCW1 ([facility]) Body height 62.5 [in_i] 62.5 [in_i] eCW1 ([facility]) Body weight 176.8 [lb_av] 176.8 [lb_av] eCW1 ([facility]) Body surface area Derived from formula 1.83 m2 1.83 m2 MEDENT ([facility]) Body weight 80.741 kg 80.741 kg [facility] ([facility]) Watrous body weight 110 [lb_av] 110 [lb_av] MEDEN T ([facility]) Body mass index (BMI) [Ratio] 32.0 kg/m2 32.0 k g/m2 [facility] ([facility]) Body weight 178.00 [lb_av] 178.00 [lb_av] MEDEN T ([facility]) Body height 62.5 [in_i] 62.5 [in_i] [facility] ([facility]) 5'2.50" Diastolic blood pressure 74 mm[Hg] 74 mm[Hg] [facility] ([facility]) Systolic blood pressure 136 mm[Hg] 136 mm[Hg] M EDENT ([facility]) Oxygen saturation in Arterial blood by Pulse oximetry 99 % 99 % eCW1 ([facility]) Respiratory rate 16 /min 16 /min eCW1 ([facility]) Heart rate 60 /min 60 /min eCW1 ([facility]) Body temperature 98.3 [degF] 98.3 [degF] eCW1 ( [facility]) Body mass index (BMI) [Ratio] 33.27 kg/m2 33.27 kg/m2 eCW1 ([facility]) Body height 61.5 [in_i] 61.5 [in_i] eCW1 ([facility]) Oxygen saturation in Arterial blood by Pulse oximetry 98 % 98 % eCW1 ([facility]) Respiratory rate 16 /min 16 /min eCW1 ([facility]) Heart rate 75 /min 75 /min eCW1 ([facility]) Body temperature 98.9 [degF] 98.9 [degF] eCW1 ( [facility]) Body mass index (BMI) [Ratio] 33.38 kg/m2 33.38 kg/m2 eCW1 ([facility]) Body weight 179.6 [lb_av] 179.6 [lb_av] eCW1 ([facility]) Body height 61.5 [in_i] 61.5 [in_i] eCW1 ([facility]) Diastolic blood pressure 103 mm[Hg] 103 mm[Hg] eCW1 ([facility]) Systolic blood pressure 153 mm[Hg] 153 mm[Hg] e CW1 ([facility]) Body temperature 99.0 [degF] 99.0 [degF] eCW1 ( [facility]) Respiratory rate 16 /min 16 /min eCW1 ([facility]) Heart rate 70 /min 70 /min eCW1 ([facility]) Body mass index (BMI) [Ratio] 32.75 kg/m2 32.75 kg/m2 eCW1 ([facility]) Body height 62.5 [in_us] 62.5 [in_us] eCW1 ([facility]) Body weight Measured 182 [lb_av] 182 [lb_av] eC W1 ([facility]) Diastolic blood pressure 90 mm[Hg] 90 mm[Hg] eCW1 ([facility]) Systolic blood pressure 142 mm[Hg] 142 mm[Hg] e CW1 ([facility]) Body temperature 98.7 [degF] 98.7 [degF] eCW1 ( [facility]) Respiratory rate 18 /min 18 /min eCW1 ([facility]) Heart rate 70 /min 70 /min eCW1 ([facility]) Body mass index (BMI) [Ratio] 32.54 kg/m2 32.54 kg/m2 eCW1 ([facility]) Body height 62.5 [in_us] 62.5 [in_us] eCW1 ([facility]) Body weight Measured 180.8 [lb_av] 180.8 [lb_av ] eCW1 ([facility]) Deprecated Oxygen saturation in Capillary blood by Oximetry 98 % 98 % eCW1 ([facility]) Respiratory rate 18 /min 18 /min eCW1 ([facility]) Heart rate 78 /min 78 /min eCW1 ([facility]) Body temperature 97.7 [degF] 97.7 [degF] eCW1 ( [facility]) Body mass index (BMI) [Ratio] 33.79 kg/m2 33.79 kg/m2 eCW1 ([facility]) Body weight Measured 181.8 [lb_av] 181.8 [lb_av ] eCW1 ([facility]) Body height 61.5 [in_us] 61.5 [in_us] eCW1 ([facility]) ID Date Data Source [id number] 05/10/2020 11:58:36 AM EDT [facility] Name Value Range Interpretation Code Description Data Source(s) WEIGHT RECORDED 173 lb 173 lb [facility] Body height Measured 62 in 62 in [facility] ID Date Data Source [id number] 10/27/2019 01:28:35 PM EDT [facility] Name Value Range Interpretation Code Description Data Source(s) WEIGHT RECORDED 174 lb 174 lb [facility] Body height Measured 62 in 62 in [facility] Patient Treatment Plan of Care Planned Activity Planned Date Details Description Data Source (s) RussBen Ultra - 08/17/2020 12:00:00 AM EST eCW1 ([facility]) Ciprofloxacin 250 MG Oral Tablet [Cipro] 01/27/2020 12:00:00 AM EDT eCW1 ([facility]) NITROFURANTOIN, MACROCRYSTALS 100 MG Oral Capsule 01/24/2020 12: 00:00 AM EDT eCW1 ([facility][1] [facility]) NITROFURANTOIN, MACROCRYSTALS 100 MG Oral Capsule 01/24/2020 12: 00:00 AM EDT eCW1 ([facility]) Sulfamethoxazole 800 MG / Trimethoprim 160 MG Oral Tab let [Bactrim] 01/09/2020 12:00:00 AM EDT eCW1 ([facility]) Sulfamethoxazole 800 MG / Trimethoprim 160 MG Oral Tab let [Bactrim] 01/09/2020 12:00:00 AM EDT eCW1 ([facility]) Lactic acid 50 MG/ML Topical Lotion [Lac-Hydrin] 12/04/2019 12:00:0 0 AM EDT eCW1 ([facility]) Dicyclomine Hydrochloride 20 MG Oral Tablet 09/21/2019 12:00:00 AM [facility] Dicyclomine Hydrochloride 20 MG Oral Tablet 09/01/2019 12:00:00 AM EST eCW1 ([facility]) Dicyclomine Hydrochloride 20 MG Oral Tablet 09/01/2019 12:00:00 AM EST eCW1 ([facility]) Dicyclomine Hydrochloride 20 MG Oral Tablet 09/01/2019 12:00:00 AM EST eCW1 ([facility])
[2020-08-19] MEDS ORDERED: propofoL 200 MG/20 ML VIAL As Ordered ONE (11:45)
[2020-08-19] MEDS ORDERED: LIDOCAINE 2% 100MG/5ML SDV (FOR ANES.) As Ordered ONE (11:45)
--- NOTE | 2020-08-19 11:55 | ROOR ---
Patient Name: Stella Fagan Procedure Date: 08/19/2020 10:53 AM Date of : 1970 Age: 49 Room: [facility] Gender: Female Note Status: Finalized Procedure: Upper GI endoscopy Indications: Heartburn, Suspected non-erosive esophageal reflux, For therapy of gastric polyps Providers: Chuy Garcia MD Referring MD: HAILY GARCIA DO Requesting Provider: Medicines: Monitored Anesthesia Care Complications: No immediate complications. Procedure: Pre-Anesthesia Assessment: - Prior to the procedure, a History and Physical was performed, and patient medications and allergies were reviewed. The patient is competent. The risks and benefits of the procedure and the sedation options and risks were discussed with the patient. All questions were answered and informed consent was obtained. Patient identification and proposed procedure were verified by the physician, the nurse and the anesthesiologist in the procedure room. Mental Status Examination: alert and oriented. Airway Examination: normal oropharyngeal airway and neck mobility. Respiratory Examination: clear to auscultation. CV Examination: normal. Prophylactic Antibiotics: The patient does not require prophylactic antibiotics. Prior Anticoagulants: The patient has taken no previous anticoagulant or antiplatelet agents. ASA Grade Assessment: II - A patient with mild systemic disease. After reviewing the risks and benefits, the patient was deemed in satisfactory condition to undergo the procedure. The anesthesia plan was to use monitored anesthesia care (MAC). Immediately prior to administration of medications, the patient was re-assessed for adequacy to receive sedatives. The heart rate, respiratory rate, oxygen saturations, blood pressure, adequacy of pulmonary ventilation, and response to care were monitored throughout the procedure. The physical status of the patient was re-assessed after the procedure. The Endoscope was introduced through the mouth, and advanced to the second part of duodenum. The upper GI endoscopy was accomplished without difficulty. The patient tolerated the procedure well. Findings: The Z-line was regular and was found 38 cm from the incisors. Multiple 5 to 15 mm sessile polyps with no bleeding and stigmata of recent bleeding were found in the gastric fundus, in the gastric body and in the gastric antrum. All large polyps greater than 1 cm size were removed with a hot snare. Resection and retrieval were complete. One hemostatic clip was successfully placed on one of the polypectomy site. No bleeding at the end of procedure. Scattered mild inflammation characterized by erythema and granularity was found in the gastric antrum. Biopsies were taken with a cold forceps for Helicobacter pylori testing. Multiple diffuse erosions without bleeding were found in the duodenal bulb and in the second portion of the duodenum. Biopsies for histology were taken with a cold forceps for evaluation of celiac disease. Verification of patient identification for the specimen was done by the physician and nurse using the patient's name, date and medical record number. Estimated blood loss was minimal. There is no endoscopic evidence of esophagitis in the entire esophagus. The ESCALONA capsule with delivery system was introduced through the mouth and advanced into the esophagus, such that the ESCALONA pH capsule was positioned 32 cm from the incisors, which was 6 cm proximal to the GE junction. Suction was applied to the well of the ESCALONA pH capsule to suck in the adjacent mucosa of the esophagus using the external vacuum pump set at a minimum vacuum pressure of 550 mmHg for 30 seconds. The ESCALONA pH capsule was then deployed by depressing the plunger on top of the handle to advance the locking pin into the mucosa, thereby attaching the capsule to the esophagus. The plunger was then rotated a quarter turn clockwise to release the capsule from the delivery system. The delivery system was then withdrawn. Endoscopy was utilized for probe placement and diagnostic evaluation. The scope was reinserted to evaluate placement of the ESCALONA capsule. Visualization showed the ESCALONA capsule to be in an appropriate position. Impression: - Z-line regular, 38 cm from the incisors. - Multiple gastric polyps. Resected and retrieved. Clip was placed. - Gastritis. Biopsied. - Duodenal erosions without bleeding. Biopsied. - The ESCALONA pH capsule was positioned 32 cm from the incisors, which was 6 cm proximal to the GE junction. Recommendation: - Patient has a contact number available for emergencies. The signs and symptoms of potential delayed complications were discussed with the patient. Return to normal activities tomorrow. Written discharge instructions were provided to the patient. - High fiber diet. - Continue present medications. - Await pathology results. - Follow an antireflux regimen. - Telephone GI clinic for pathology results in 2 weeks. - Return to primary care physician. Procedure Code(s): --- Professional --- 93153, Esophagogastroduodenoscopy, flexible, transoral; with removal of tumor(s), polyp(s), or other lesion(s) by snare technique 72817, 59, Esophagogastroduodenoscopy, flexible, transoral; with biopsy, single or multiple Diagnosis Code(s): --- Professional --- K31.7, Polyp of stomach and duodenum K29.70, Gastritis, unspecified, without bleeding K26.9, Duodenal ulcer, unspecified as acute or chronic, without hemorrhage or perforation R12, Heartburn CPT copyright 2019 [employer]. All rights reserved. The codes documented in this report are preliminary and upon vacuum drum drier operator review may be revised to meet current compliance requirements. Chuy Garcia MD Chuy Garcia MD 08/19/2020 11:54:48 AM Electronically signed by Chuy Garcia MD Number of Addenda: 0 Note Initiated On: 08/19/2020 10:53 AM Estimated Blood Loss: Estimated blood loss was minimal.
[2020-08-19 12:10] VITALS: BP 137/91
== END 2020-08-19 12:19 | disposition home or self-care (01) ==
LOC: M OPP 09:12
PROVIDERS: ATTEND Internal Medicine Gastroenterology
DX: R12 Heartburn (principal); K21.9 Gastro-esophageal reflux disease without esophagitis; K31.7 Polyp of stomach and duodenum; K29.70 Gastritis, unspecified, without bleeding; K26.9 Duodenal ulcer, unspecified as acute or chronic, without hemorrhage or perforation; I10 Essential (primary) hypertension; E78.5 Hyperlipidemia, unspecified; E11.9 Type 2 diabetes mellitus without complications; I71.2 Thoracic aortic aneurysm, without rupture; Z91.030 Bee allergy status; Z79.82 Long term (current) use of aspirin; Z79.84 Long term (current) use of oral hypoglycemic drugs; Z79.899 Other long term (current) drug therapy; Z80.3 Family history of malignant neoplasm of breast; Z80.0 Family history of malignant neoplasm of digestive organs

== ENCOUNTER → 2020-09-15 | Outpatient (REF) | payer OTHER ==
[~2020-09-15] MED LIST changes: -NS 1,000 ML IV ONE
== END ==
LOC: M LABDRAWC 15:32
PROVIDERS: ATTEND Internal Medicine Gastroenterology
DX: B96.81 Helicobacter pylori [H. pylori] as the cause of diseases classified elsewhere (principal)

== ENCOUNTER → 2020-11-09 | Outpatient (REF) | payer OTHER ==
[2020-11-09 12:07] LABS: BASO # 0.1 10^3/uL (0.0-0.2); BASO % 1.3 % (0.0-1.0); EOS # 0.1 10^3/uL (0.0-0.5); HEMATOCRIT 39.7 % (36.0-47.0); HEMOGLOBIN 12.7 g/dl (12.0-15.5); LYMPH # 1.6 10^3/uL (1.5-5.0); LYMPH % 34.1 % (24.0-44.0); MEAN CORPUSCULAR HEMOGLOBIN 28.1 pg (27.0-33.0); MEAN CORPUSCULAR VOLUME 87.8 fl (80.0-96.0); MONO # 0.4 10^3/uL (0.0-0.8); MONO % 8.2 % (2.0-8.0); NEUTROPHILS # 2.4 10^3/uL (1.5-8.5); NEUTROPHILS % 52.7 % (36.0-66.0); PLATELET COUNT, AUTOMATED 283 10^3/uL (150-450); RED BLOOD COUNT 4.52 10^6/uL (4.00-5.40); WHITE BLOOD COUNT 4.6 10^3/uL (4.0-10.0)
[2020-11-09 12:43] LABS: ALBUMIN 4.1 GM/DL (3.2-5.2); ALT/SGPT 36 U/L (12-78); BILIRUBIN,TOTAL 0.3 MG/DL (0.2-1.0); BLOOD UREA NITROGEN 20 MG/DL (7-18); CALCIUM LEVEL 9.3 MG/DL (8.5-10.1); CARBON DIOXIDE LEVEL 31 MEQ/L (21-32); CHLORIDE LEVEL 103 MEQ/L (98-107); CREATININE FOR GFR 0.77 MG/DL (0.55-1.30); GLOMERULAR FILTRATION RATE > 60.0 (>58); GLUCOSE, FASTING 143 MG/DL (70-100); IRON (FE) 56 UG/DL (50-170); POTASSIUM SERUM 3.9 MEQ/L (3.5-5.1); SODIUM LEVEL 140 MEQ/L (136-145); TOTAL PROTEIN 7.4 GM/DL (6.4-8.2)
[2020-11-09 12:57] LABS: HEMOGLOBIN A1c 6.7 %
== END ==
LOC: M SFHCCLAY 08:38
PROVIDERS: ATTEND Family Medicine
DX: D50.9 Iron deficiency anemia, unspecified (principal); E11.9 Type 2 diabetes mellitus without complications

== ENCOUNTER → 2021-02-03 | Outpatient (REF) | payer OTHER ==
[~2021-02-03] MED LIST changes: +OMEP40CA4 PO; -OMEP40CA97 PO
[2021-02-03 12:09] LABS: BASO # 0.1 10^3/uL (0.0-0.2); BASO % 1.2 % (0.0-1.0); EOS # 0.1 10^3/uL (0.0-0.5); EOS % 2.6 % (0.0-3.0); HEMATOCRIT 38.9 % (36.0-47.0); HEMOGLOBIN 12.5 g/dl (12.0-15.5); LYMPH # 1.4 10^3/uL (1.5-5.0); LYMPH % 28.8 % (24.0-44.0); MEAN CORPUSCULAR HEMOGLOBIN 28.8 pg (27.0-33.0); MEAN CORPUSCULAR HGB CONC 32.1 g/dl (32.0-36.5); MEAN CORPUSCULAR VOLUME 89.6 fl (80.0-96.0); MONO # 0.5 10^3/uL (0.0-0.8); MONO % 9.2 % (2.0-8.0); NEUTROPHILS # 2.9 10^3/uL (1.5-8.5); NEUTROPHILS % 57.6 % (36.0-66.0); PLATELET COUNT, AUTOMATED 293 10^3/uL (150-450); RED BLOOD COUNT 4.34 10^6/uL (4.00-5.40)
[2021-02-03 12:36] LABS: HEMOGLOBIN A1c 7.1 %
[2021-02-03 12:50] LABS: ALT/SGPT 35 U/L (12-78); BILIRUBIN,TOTAL 0.2 MG/DL (0.2-1.0); BLOOD UREA NITROGEN 15 MG/DL (7-18); CALCIUM LEVEL 10.1 MG/DL (8.5-10.1); CARBON DIOXIDE LEVEL 27 MEQ/L (21-32); CHLORIDE LEVEL 104 MEQ/L (98-107); CREATININE FOR GFR 0.75 MG/DL (0.55-1.30); GLOMERULAR FILTRATION RATE > 60.0 (>58); GLUCOSE, FASTING 154 MG/DL (70-100); IRON (FE) 48 UG/DL (50-170); POTASSIUM SERUM 4.3 MEQ/L (3.5-5.1); SODIUM LEVEL 140 MEQ/L (136-145); TOTAL PROTEIN 7.3 GM/DL (6.4-8.2)
== END ==
LOC: M SFHCCLAY 08:05
PROVIDERS: ATTEND Family Medicine
DX: D50.9 Iron deficiency anemia, unspecified (principal); E11.9 Type 2 diabetes mellitus without complications

== ENCOUNTER → 2021-05-26 | Outpatient (REF) | payer OTHER ==
[2021-05-26 11:55] LABS: BASO # 0.1 10^3/uL (0.0-0.2); BASO % 0.9 % (0.0-1.0); EOS # 0.2 10^3/uL (0.0-0.5); EOS % 2.8 % (0.0-3.0); HEMATOCRIT 38.2 % (36.0-47.0); LYMPH # 1.5 10^3/uL (1.5-5.0); MEAN CORPUSCULAR HEMOGLOBIN 27.7 pg (27.0-33.0); MEAN CORPUSCULAR HGB CONC 31.4 g/dl (32.0-36.5); MEAN CORPUSCULAR VOLUME 88.2 fl (80.0-96.0); MONO # 0.5 10^3/uL (0.0-0.8); MONO % 9.4 % (2.0-8.0); NEUTROPHILS # 3.4 10^3/uL (1.5-8.5); NEUTROPHILS % 59.4 % (36.0-66.0); PLATELET COUNT, AUTOMATED 313 10^3/uL (150-450); RED BLOOD COUNT 4.33 10^6/uL (4.00-5.40); WHITE BLOOD COUNT 5.7 10^3/uL (4.0-10.0)
[2021-05-26 12:21] LABS: HEMOGLOBIN A1c 6.5 %
[2021-05-26 12:30] LABS: ALBUMIN 3.6 GM/DL (3.2-5.2); ALT/SGPT 28 U/L (12-78); BILIRUBIN,TOTAL 0.3 MG/DL (0.2-1.0); BLOOD UREA NITROGEN 16 MG/DL (7-18); CALCIUM LEVEL 9.7 MG/DL (8.5-10.1); CARBON DIOXIDE LEVEL 30 MEQ/L (21-32); CHLORIDE LEVEL 102 MEQ/L (98-107); CREATININE FOR GFR 0.67 MG/DL (0.55-1.30); GLOMERULAR FILTRATION RATE > 60.0 (>58); GLUCOSE, FASTING 129 MG/DL (70-100); IRON (FE) 34 UG/DL (50-170); POTASSIUM SERUM 4.3 MEQ/L (3.5-5.1); SODIUM LEVEL 140 MEQ/L (136-145); TOTAL PROTEIN 7.1 GM/DL (6.4-8.2)
== END ==
LOC: M SFHCCLAY 07:19
PROVIDERS: ATTEND Family Medicine
DX: D50.9 Iron deficiency anemia, unspecified (principal); E11.9 Type 2 diabetes mellitus without complications

== ENCOUNTER → 2022-01-03 | Outpatient (REF) | payer OTHER ==
[~2022-01-03] MED LIST changes: -DICY20TA11 PO; +DICY20TA20 PO; -LISI20TA20 PO; +LISI20TA37 PO
[2022-01-03 12:02] LABS: BASO # 0.1 10^3/uL (0.0-0.2); EOS # 0.2 10^3/uL (0.0-0.5); EOS % 2.2 % (0.0-3.0); HEMATOCRIT 38.3 % (36.0-47.0); HEMOGLOBIN 12.1 g/dl (12.0-15.5); LYMPH % 26.8 % (24.0-44.0); MEAN CORPUSCULAR HEMOGLOBIN 26.8 pg (27.0-33.0); MEAN CORPUSCULAR HGB CONC 31.6 g/dl (32.0-36.5); MEAN CORPUSCULAR VOLUME 84.9 fl (80.0-96.0); MONO # 0.5 10^3/uL (0.0-0.8); MONO % 7.1 % (2.0-8.0); NEUTROPHILS # 4.6 10^3/uL (1.5-8.5); NEUTROPHILS % 62.4 % (36.0-66.0); PLATELET COUNT, AUTOMATED 279 10^3/uL (150-450); RED BLOOD COUNT 4.51 10^6/uL (4.00-5.40); WHITE BLOOD COUNT 7.4 10^3/uL (4.0-10.0)
[2022-01-03 12:30] LABS: ALBUMIN 3.4 GM/DL (3.2-5.2); ALT/SGPT 23 U/L (12-78); BILIRUBIN,TOTAL 0.3 MG/DL (0.2-1.0); BLOOD UREA NITROGEN 11 MG/DL (7-18); CALCIUM LEVEL 8.9 MG/DL (8.5-10.1); CARBON DIOXIDE LEVEL 30 MEQ/L (21-32); CHLORIDE LEVEL 103 MEQ/L (98-107); CREATININE FOR GFR 0.71 MG/DL (0.55-1.30); GLOMERULAR FILTRATION RATE > 60.0 (>51); GLUCOSE, FASTING 137 MG/DL (70-100); IRON (FE) 36 UG/DL (50-170); POTASSIUM SERUM 4.1 MEQ/L (3.5-5.1); SODIUM LEVEL 139 MEQ/L (136-145); TOTAL PROTEIN 6.8 GM/DL (6.4-8.2)
[2022-01-03 12:39] LABS: HEMOGLOBIN A1c 6.7 %
== END ==
LOC: M SFHCCLAY 07:13
PROVIDERS: ATTEND Family Medicine
DX: E11.9 Type 2 diabetes mellitus without complications (principal); D50.9 Iron deficiency anemia, unspecified

== ENCOUNTER → 2022-04-06 | Outpatient (REF) | payer OTHER ==
[2022-04-06 12:38] LABS: BASO # 0.1 10^3/uL (0.0-0.2); BASO % 0.9 % (0.0-1.0); EOS # 0.2 10^3/uL (0.0-0.5); EOS % 4.2 % (0.0-3.0); HEMATOCRIT 41.4 % (36.0-47.0); HEMOGLOBIN 12.9 g/dl (12.0-15.5); LYMPH % 35.9 % (24.0-44.0); MEAN CORPUSCULAR HEMOGLOBIN 27.2 pg (27.0-33.0); MEAN CORPUSCULAR HGB CONC 31.2 g/dl (32.0-36.5); MEAN CORPUSCULAR VOLUME 87.2 fl (80.0-96.0); MONO # 0.5 10^3/uL (0.0-0.8); MONO % 9.3 % (2.0-8.0); NEUTROPHILS # 2.7 10^3/uL (1.5-8.5); NEUTROPHILS % 49.5 % (36.0-66.0); PLATELET COUNT, AUTOMATED 278 10^3/uL (150-450); RED BLOOD COUNT 4.75 10^6/uL (4.00-5.40); WHITE BLOOD COUNT 5.5 10^3/uL (4.0-10.0)
[2022-04-06 12:58] LABS: ALBUMIN 3.6 GM/DL (3.2-5.2); ALT/SGPT 34 U/L (12-78); BILIRUBIN,TOTAL 0.3 MG/DL (0.2-1.0); BLOOD UREA NITROGEN 11 MG/DL (7-18); CALCIUM LEVEL 9.3 MG/DL (8.5-10.1); CARBON DIOXIDE LEVEL 32 MEQ/L (21-32); CHLORIDE LEVEL 102 MEQ/L (98-107); CREATININE FOR GFR 0.65 MG/DL (0.55-1.30); GLOMERULAR FILTRATION RATE > 60.0 (>51); GLUCOSE, FASTING 117 MG/DL (70-100); IRON (FE) 49 UG/DL (50-170); POTASSIUM SERUM 4.3 MEQ/L (3.5-5.1); SODIUM LEVEL 139 MEQ/L (136-145); TOTAL PROTEIN 7.1 GM/DL (6.4-8.2)
[2022-04-06 13:32] LABS: HEMOGLOBIN A1c 6.5 %
== END ==
LOC: M SFHCCLAY 07:53
PROVIDERS: ATTEND Family Medicine
DX: E78.5 Hyperlipidemia, unspecified (principal); D50.9 Iron deficiency anemia, unspecified

== ENCOUNTER → 2022-07-12 | Outpatient (REF) | payer OTHER ==
[2022-07-12 11:40] LABS: BASO # 0.1 10^3/uL (0.0-0.2); BASO % 0.7 % (0.0-1.0); EOS # 0.2 10^3/uL (0.0-0.5); EOS % 2.3 % (0.0-3.0); HEMATOCRIT 38.9 % (36.0-47.0); HEMOGLOBIN 12.4 g/dl (12.0-15.5); LYMPH # 1.9 10^3/uL (1.5-5.0); LYMPH % 27.8 % (24.0-44.0); MEAN CORPUSCULAR HEMOGLOBIN 28.2 pg (27.0-33.0); MEAN CORPUSCULAR HGB CONC 31.9 g/dl (32.0-36.5); MEAN CORPUSCULAR VOLUME 88.6 fl (80.0-96.0); MONO # 0.6 10^3/uL (0.0-0.8); MONO % 8.1 % (2.0-8.0); NEUTROPHILS # 4.1 10^3/uL (1.5-8.5); NEUTROPHILS % 60.5 % (36.0-66.0); PLATELET COUNT, AUTOMATED 255 10^3/uL (150-450); RED BLOOD COUNT 4.39 10^6/uL (4.00-5.40); WHITE BLOOD COUNT 6.8 10^3/uL (4.0-10.0)
[2022-07-12 12:07] LABS: HEMOGLOBIN A1c 6.4 % (4.0-6.0)
[2022-07-12 12:09] LABS: IRON (FE) 37 UG/DL (50-170)
[2022-07-12 12:10] LABS: ALBUMIN 3.6 G/DL (3.2-5.2); ALKALINE PHOSPHATASE 36 U/L (46-116); ALT/SGPT 25 U/L (7.0-40); AST/SGOT 17 U/L (<34); BILIRUBIN,TOTAL 0.3 MG/DL (0.3-1.2); BLOOD UREA NITROGEN 15 MG/DL (9-23); CARBON DIOXIDE LEVEL 30 MMOL/L (20-31); CHLORIDE LEVEL 98 MMOL/L (98-107); CREATININE FOR GFR 0.53 MG/DL (0.55-1.30); GLOMERULAR FILTRATION RATE > 60.0 (>51); GLUCOSE, FASTING 118 MG/DL (60-100); POTASSIUM SERUM 4.1 MMOL/L (3.5-5.1); SODIUM LEVEL 138 MMOL/L (136-145)
== END ==
LOC: M SFHCCLAY 07:53
PROVIDERS: ATTEND Family Medicine
DX: E11.9 Type 2 diabetes mellitus without complications (principal); D50.9 Iron deficiency anemia, unspecified

== ENCOUNTER → 2022-10-17 | Outpatient (REF) | payer OTHER ==
[2022-10-17 11:22] LABS: BASO # 0.1 10^3/uL (0.0-0.2); BASO % 1.1 % (0.0-1.0); EOS # 0.2 10^3/uL (0.0-0.5); EOS % 3.7 % (0.0-3.0); HEMATOCRIT 37.4 % (36.0-47.0); HEMOGLOBIN 12.1 g/dl (12.0-15.5); IRON (FE) 38 UG/DL (50-170); LYMPH # 2.1 10^3/uL (1.5-5.0); LYMPH % 36.3 % (24.0-44.0); MEAN CORPUSCULAR HGB CONC 32.4 g/dl (32.0-36.5); MEAN CORPUSCULAR VOLUME 89.7 fl (80.0-96.0); MONO # 0.5 10^3/uL (0.0-0.8); MONO % 8.5 % (2.0-8.0); NEUTROPHILS # 2.9 10^3/uL (1.5-8.5); PLATELET COUNT, AUTOMATED 263 10^3/uL (150-450); RED BLOOD COUNT 4.17 10^6/uL (4.00-5.40); WHITE BLOOD COUNT 5.7 10^3/uL (4.0-10.0)
[2022-10-17 11:27] LABS: ALBUMIN 3.6 G/DL (3.2-5.2); ALKALINE PHOSPHATASE 33 U/L (46-116); ALT/SGPT 18 U/L (7.0-40); AST/SGOT 14 U/L (<34); BILIRUBIN,TOTAL 0.4 MG/DL (0.3-1.2); BLOOD UREA NITROGEN 13 MG/DL (9-23); CARBON DIOXIDE LEVEL 29 MMOL/L (20-31); CHLORIDE LEVEL 103 MMOL/L (98-107); CREATININE FOR GFR 0.57 MG/DL (0.55-1.30); GLOMERULAR FILTRATION RATE > 60.0 (>51); GLUCOSE, FASTING 136 MG/DL (60-100); POTASSIUM SERUM 3.9 MMOL/L (3.5-5.1); SODIUM LEVEL 137 MMOL/L (136-145); TOTAL PROTEIN 6.8 G/DL (5.7-8.2)
[2022-10-17 11:31] LABS: HEMOGLOBIN A1c 6.4 % (4.0-6.0)
== END ==
LOC: M SFHCCLAY 07:09
PROVIDERS: ATTEND Family Medicine
DX: E11.9 Type 2 diabetes mellitus without complications (principal); D50.9 Iron deficiency anemia, unspecified

== ENCOUNTER → 2023-01-08 | Outpatient (REF) | payer OTHER ==
[2023-01-08 11:36] LABS: BASO # 0.1 10^3/uL (0.0-0.2); BASO % 1.1 % (0.0-1.0); EOS # 0.2 10^3/uL (0.0-0.5); EOS % 3.4 % (0.0-3.0); HEMATOCRIT 38.3 % (36.0-47.0); HEMOGLOBIN 12.8 g/dl (12.0-15.5); LYMPH # 1.5 10^3/uL (1.5-5.0); LYMPH % 28.7 % (24.0-44.0); MEAN CORPUSCULAR HGB CONC 33.4 g/dl (32.0-36.5); MEAN CORPUSCULAR VOLUME 86.7 fl (80.0-96.0); MONO # 0.4 10^3/uL (0.0-0.8); MONO % 8.1 % (2.0-8.0); NEUTROPHILS # 3.1 10^3/uL (1.5-8.5); NEUTROPHILS % 58.1 % (36.0-66.0); PLATELET COUNT, AUTOMATED 296 10^3/uL (150-450); RED BLOOD COUNT 4.42 10^6/uL (4.00-5.40); WHITE BLOOD COUNT 5.3 10^3/uL (4.0-10.0)
[2023-01-08 11:43] LABS: URIC ACID 8.9 MG/DL (3.1-7.8)
[2023-01-08 11:45] LABS: IRON (FE) 41 UG/DL (50-170)
[2023-01-08 11:46] LABS: C REACTIVE PROTEIN QUANTITATIV < 0.40 MG/DL (<1.0)
[2023-01-08 11:47] LABS: ALBUMIN 3.9 G/DL (3.2-5.2); ALKALINE PHOSPHATASE 37 U/L (46-116); ALT/SGPT 23 U/L (7.0-40); AST/SGOT 11 U/L (<34); BILIRUBIN,TOTAL 0.4 MG/DL (0.3-1.2); BLOOD UREA NITROGEN 12 MG/DL (9-23); CARBON DIOXIDE LEVEL 29 MMOL/L (20-31); CHLORIDE LEVEL 99 MMOL/L (98-107); CHOLESTEROL LEVEL 166 MG/DL (<200); CHOLESTEROL RISK RATIO 4.82 (<5); GLOMERULAR FILTRATION RATE > 60.0 (>51); GLUCOSE, FASTING 143 MG/DL (60-100); HDL CHOLESTEROL 34.4 MG/DL (>40); LDL CHOLESTEROL 68.6 MG/DL (<100); NON-HDL-C 131.6 MG/DL; POTASSIUM SERUM 3.8 MMOL/L (3.5-5.1); SODIUM LEVEL 139 MMOL/L (136-145); TOTAL PROTEIN 6.9 G/DL (5.7-8.2); TRIGLYCERIDES LEVEL 315 MG/DL (<150)
[2023-01-08 11:52] LABS: RHEUMATOID FACTOR QUANT < 3.5 IU/ML (<14)
[2023-01-08 12:03] LABS: ERYTHROCYTE SEDIMENTATION RATE 26 mm/hr (0-30)
[2023-01-08 12:17] LABS: HEMOGLOBIN A1c 6.7 % (4.0-6.0)
[2023-01-12 19:06] LABS: ANA (HEP2) Negative (.); CYCLIC CITRULLINATED PEPTIDE 8 units (0-19)
== END ==
LOC: M SFHCCLAY 07:18
PROVIDERS: ATTEND Family Medicine
DX: E11.9 Type 2 diabetes mellitus without complications (principal); E78.5 Hyperlipidemia, unspecified; D50.9 Iron deficiency anemia, unspecified; M79.10 Myalgia, unspecified site; M25.50 Pain in unspecified joint

== ENCOUNTER → 2023-02-23 | Outpatient (CLI) | payer OTHER | LOC: M RAD 12:35 | PROVIDERS: ATTEND Family Medicine | DX: M54.16 Radiculopathy, lumbar region (principal); R20.2 Paresthesia of skin; M51.36 Other intervertebral disc degeneration, lumbar region; M51.37 Other intervertebral disc degeneration, lumbosacral region; R93.7 Abnormal findings on diagnostic imaging of other parts of musculoskeletal system ==

== ENCOUNTER → 2023-04-20 | Outpatient (CLI) | payer OTHER | LOC: M PAIN 08:00 | PROVIDERS: ATTEND Nurse Practitioner Family | DX: M79.10 Myalgia, unspecified site (principal); M51.9 Unspecified thoracic, thoracolumbar and lumbosacral intervertebral disc disorder; M47.816 Spondylosis without myelopathy or radiculopathy, lumbar region; G89.29 Other chronic pain; E11.9 Type 2 diabetes mellitus without complications; Z88.8 Allergy status to other drugs, medicaments and biological substances; Z79.82 Long term (current) use of aspirin; Z79.84 Long term (current) use of oral hypoglycemic drugs; Z79.85 Long-term (current) use of injectable non-insulin antidiabetic drugs; Z79.899 Other long term (current) drug therapy ==

== ENCOUNTER → 2023-06-01 | Outpatient (CLI) | payer OTHER | LOC: M PAIN 10:15 | PROVIDERS: ATTEND Nurse Practitioner Family | DX: M79.10 Myalgia, unspecified site (principal); M51.9 Unspecified thoracic, thoracolumbar and lumbosacral intervertebral disc disorder; M47.816 Spondylosis without myelopathy or radiculopathy, lumbar region; G89.29 Other chronic pain; Z88.8 Allergy status to other drugs, medicaments and biological substances; Z79.82 Long term (current) use of aspirin; Z79.84 Long term (current) use of oral hypoglycemic drugs; Z79.85 Long-term (current) use of injectable non-insulin antidiabetic drugs; Z79.899 Other long term (current) drug therapy ==

== ENCOUNTER → 2023-07-31 | Outpatient (REF) | payer OTHER ==
[2023-07-31 12:04] LABS: HEMATOCRIT 37.1 % (36.0-47.0); HEMOGLOBIN 11.8 g/dl (12.0-15.5); MEAN CORPUSCULAR HEMOGLOBIN 27.5 pg (27.0-33.0); MEAN CORPUSCULAR HGB CONC 31.8 g/dl (32.0-36.5); MEAN CORPUSCULAR VOLUME 86.5 fl (80.0-96.0); PLATELET COUNT, AUTOMATED 306 10^3/uL (150-450); RED BLOOD COUNT 4.29 10^6/uL (4.00-5.40); WHITE BLOOD COUNT 5.5 10^3/uL (4.0-10.0)
[2023-07-31 12:17] LABS: HEMOGLOBIN A1c 6.5 % (4.0-6.0)
[2023-07-31 12:23] LABS: ALBUMIN 3.8 G/DL (3.2-5.2); ALKALINE PHOSPHATASE 38 U/L (46-116); ALT/SGPT 16 U/L (7.0-40); AST/SGOT 13 U/L (<34); BILIRUBIN,TOTAL 0.3 MG/DL (0.3-1.2); BLOOD UREA NITROGEN 20 MG/DL (9-23); CALCIUM LEVEL 9.5 MG/DL (8.5-10.1); CARBON DIOXIDE LEVEL 29 MMOL/L (20-31); CHLORIDE LEVEL 102 MMOL/L (98-107); CREATININE FOR GFR 0.67 MG/DL (0.55-1.30); GLOMERULAR FILTRATION RATE > 60.0 (>51); GLUCOSE, FASTING 128 MG/DL (60-100); POTASSIUM SERUM 4.3 MMOL/L (3.5-5.1); SODIUM LEVEL 140 MMOL/L (136-145); TOTAL PROTEIN 7.1 G/DL (5.7-8.2)
[2023-08-01 17:07] LABS: IRON (FE) 36 UG/DL (50-170)
== END ==
LOC: M SFHCCLAY 07:21
PROVIDERS: ATTEND Family Medicine
DX: E11.9 Type 2 diabetes mellitus without complications (principal); D50.9 Iron deficiency anemia, unspecified

== ENCOUNTER → 2023-10-31 | Outpatient (REF) | payer OTHER ==
[2023-10-31 12:52] LABS: HEMATOCRIT 38.8 % (36.0-47.0); HEMOGLOBIN 12.5 g/dl (12.0-15.5); MEAN CORPUSCULAR HEMOGLOBIN 28.1 pg (27.0-33.0); MEAN CORPUSCULAR HGB CONC 32.2 g/dl (32.0-36.5); MEAN CORPUSCULAR VOLUME 87.2 fl (80.0-96.0); PLATELET COUNT, AUTOMATED 286 10^3/uL (150-450); RED BLOOD COUNT 4.45 10^6/uL (4.00-5.40); WHITE BLOOD COUNT 5.6 10^3/uL (4.0-10.0)
[2023-10-31 13:05] LABS: HEMOGLOBIN A1c 6.7 % (4.0-6.0)
[2023-10-31 13:17] LABS: ALBUMIN 3.8 G/DL (3.2-5.2); ALKALINE PHOSPHATASE 35 U/L (46-116); ALT/SGPT 17 U/L (7.0-40); AST/SGOT 15 U/L (<34); BILIRUBIN,TOTAL 0.3 MG/DL (0.3-1.2); BLOOD UREA NITROGEN 17 MG/DL (9-23); CALCIUM LEVEL 9.5 MG/DL (8.5-10.1); CARBON DIOXIDE LEVEL 30 MMOL/L (20-31); CHLORIDE LEVEL 100 MMOL/L (98-107); CREATININE FOR GFR 0.67 MG/DL (0.55-1.30); GLOMERULAR FILTRATION RATE > 60.0 (>51); GLUCOSE, FASTING 151 MG/DL (60-100); IRON (FE) 45 UG/DL (50-170); POTASSIUM SERUM 4.1 MMOL/L (3.5-5.1); SODIUM LEVEL 137 MMOL/L (136-145); TOTAL PROTEIN 7.2 G/DL (5.7-8.2)
== END ==
LOC: M SFHCCLAY 07:12
PROVIDERS: ATTEND Family Medicine
DX: E11.9 Type 2 diabetes mellitus without complications (principal); D50.9 Iron deficiency anemia, unspecified

== ENCOUNTER → 2024-02-12 | Outpatient (REF) | payer OTHER ==
[2024-02-12 12:02] LABS: HEMATOCRIT 35.7 % (36.0-47.0); HEMOGLOBIN 11.7 g/dl (12.0-15.5); MEAN CORPUSCULAR HEMOGLOBIN 28.7 pg (27.0-33.0); MEAN CORPUSCULAR HGB CONC 32.8 g/dl (32.0-36.5); MEAN CORPUSCULAR VOLUME 87.7 fl (80.0-96.0); PLATELET COUNT, AUTOMATED 262 10^3/uL (150-450); RED BLOOD COUNT 4.07 10^6/uL (4.00-5.40); WHITE BLOOD COUNT 4.8 10^3/uL (4.0-10.0)
[2024-02-12 12:11] LABS: HEMOGLOBIN A1c 5.9 % (4.0-6.0)
[2024-02-12 12:33] LABS: ALBUMIN 3.8 G/DL (3.2-5.2); ALKALINE PHOSPHATASE 30 U/L (46-116); ALT/SGPT 16 U/L (7.0-40); AST/SGOT < 8 U/L (<34); BILIRUBIN,TOTAL 0.3 MG/DL (0.3-1.2); BLOOD UREA NITROGEN 12 MG/DL (9-23); CALCIUM LEVEL 9.4 MG/DL (8.5-10.1); CARBON DIOXIDE LEVEL 29 MMOL/L (20-31); CHLORIDE LEVEL 102 MMOL/L (98-107); CHOLESTEROL LEVEL 144 MG/DL (<200); CREATININE FOR GFR 0.61 MG/DL (0.55-1.30); GLOMERULAR FILTRATION RATE > 60.0 (>51); GLUCOSE, FASTING 110 MG/DL (60-100); HDL CHOLESTEROL 32.7 MG/DL (>40); LDL CHOLESTEROL 70.1 MG/DL (<100); NON-HDL-C 111.3 MG/DL; POTASSIUM SERUM 3.9 MMOL/L (3.5-5.1); SODIUM LEVEL 138 MMOL/L (136-145); TOTAL PROTEIN 6.6 G/DL (5.7-8.2); TRIGLYCERIDES LEVEL 206 MG/DL (<150)
[2024-02-12 12:34] LABS: IRON (FE) 27 UG/DL (50-170)
== END ==
LOC: M SFHCCLAY 07:31
PROVIDERS: ATTEND Family Medicine
DX: E11.9 Type 2 diabetes mellitus without complications (principal); D50.9 Iron deficiency anemia, unspecified; E78.5 Hyperlipidemia, unspecified

== ENCOUNTER → 2024-05-16 | Outpatient (REF) | payer OTHER ==
[2024-05-16 17:35] LABS: HEMATOCRIT 37.6 % (36.0-47.0); HEMOGLOBIN 12.5 g/dl (12.0-15.5); MEAN CORPUSCULAR HGB CONC 33.2 g/dl (32.0-36.5); MEAN CORPUSCULAR VOLUME 87.2 fl (80.0-96.0); PLATELET COUNT, AUTOMATED 268 10^3/uL (150-450); RED BLOOD COUNT 4.31 10^6/uL (4.00-5.40); WHITE BLOOD COUNT 6.5 10^3/uL (4.0-10.0)
[2024-05-16 17:43] LABS: HEMOGLOBIN A1c 5.7 % (4.0-6.0)
[2024-05-16 18:17] LABS: ALBUMIN 3.9 G/DL (3.2-5.2); ALKALINE PHOSPHATASE 34 U/L (46-116); ALT/SGPT 14 U/L (7.0-40); AST/SGOT < 8 U/L (<34); BILIRUBIN,TOTAL 0.5 MG/DL (0.3-1.2); BLOOD UREA NITROGEN 15 MG/DL (9-23); CARBON DIOXIDE LEVEL 26 MMOL/L (20-31); CHLORIDE LEVEL 106 MMOL/L (98-107); CREATININE FOR GFR 0.63 MG/DL (0.55-1.30); GLOMERULAR FILTRATION RATE > 60.0 (>51); GLUCOSE, FASTING 99 MG/DL (60-100); IRON (FE) 62 UG/DL (50-170); POTASSIUM SERUM 4.5 MMOL/L (3.5-5.1); SODIUM LEVEL 139 MMOL/L (136-145); TOTAL PROTEIN 7.4 G/DL (5.7-8.2)
== END ==
LOC: M SFHCCLAY 09:05
PROVIDERS: ATTEND Family Medicine
DX: E11.9 Type 2 diabetes mellitus without complications (principal); D50.9 Iron deficiency anemia, unspecified

== ENCOUNTER → 2024-06-16 | Outpatient (CLI) | payer OTHER | LOC: M PLAIMG 13:33 | PROVIDERS: ATTEND Thoracic Surgery (Cardiothoracic Vascular Surgery) | DX: I71.21 Aneurysm of the ascending aorta, without rupture (principal) ==

== ENCOUNTER → 2024-08-15 | Outpatient (REF) | payer OTHER ==
[2024-08-15 11:09] LABS: HEMATOCRIT 37.2 % (36.0-47.0); MEAN CORPUSCULAR HEMOGLOBIN 28.8 pg (27.0-33.0); MEAN CORPUSCULAR HGB CONC 32.3 g/dl (32.0-36.5); MEAN CORPUSCULAR VOLUME 89.2 fl (80.0-96.0); PLATELET COUNT, AUTOMATED 230 10^3/uL (150-450); RED BLOOD COUNT 4.17 10^6/uL (4.00-5.40); WHITE BLOOD COUNT 5.3 10^3/uL (4.0-10.0)
[2024-08-15 11:47] LABS: ALBUMIN 3.7 G/DL (3.2-5.2); ALKALINE PHOSPHATASE 34 U/L (35-104); ALT/SGPT 13 U/L (7.0-40); AST/SGOT < 8 U/L (<34); BILIRUBIN,TOTAL 0.4 MG/DL (0.3-1.2); BLOOD UREA NITROGEN 18 MG/DL (9-23); CARBON DIOXIDE LEVEL 29 MMOL/L (20-31); CHLORIDE LEVEL 102 MMOL/L (98-107); CREATININE FOR GFR 0.63 MG/DL (0.55-1.30); GLOMERULAR FILTRATION RATE > 60.0 (>51); GLUCOSE, FASTING 106 MG/DL (60-100); IRON (FE) 37 UG/DL (50-170); POTASSIUM SERUM 3.8 MMOL/L (3.5-5.1); SODIUM LEVEL 141 MMOL/L (136-145); TOTAL PROTEIN 7.5 G/DL (5.7-8.2)
[2024-08-15 11:53] LABS: HEMOGLOBIN A1c 5.6 % (4.0-6.0)
== END ==
LOC: M SFHCCLAY 07:36
PROVIDERS: ATTEND Family Medicine
DX: D50.9 Iron deficiency anemia, unspecified (principal); E11.9 Type 2 diabetes mellitus without complications

== ENCOUNTER → 2024-12-10 | Outpatient (REF) | payer OTHER ==
[2024-12-10 13:01] LABS: ALBUMIN 3.9 G/DL (3.2-5.2); ALKALINE PHOSPHATASE 33 U/L (35-104); ALT/SGPT 15 U/L (7.0-40); AST/SGOT 10 U/L (<34); BILIRUBIN,TOTAL 0.4 MG/DL (0.3-1.2); BLOOD UREA NITROGEN 19 MG/DL (9-23); CALCIUM LEVEL 9.8 MG/DL (8.5-10.1); CARBON DIOXIDE LEVEL 29 MMOL/L (20-31); CHLORIDE LEVEL 101 MMOL/L (98-107); CREATININE FOR GFR 0.67 MG/DL (0.55-1.30); GLOMERULAR FILTRATION RATE > 90.0 (>51); GLUCOSE, FASTING 123 MG/DL (60-100); HEMATOCRIT 39.3 % (36.0-47.0); HEMOGLOBIN 13.3 g/dl (12.0-15.5); IRON (FE) 55 UG/DL (50-170); MEAN CORPUSCULAR HEMOGLOBIN 30.4 pg (27.0-33.0); MEAN CORPUSCULAR HGB CONC 33.8 g/dl (32.0-36.5); MEAN CORPUSCULAR VOLUME 89.9 fl (80.0-96.0); PLATELET COUNT, AUTOMATED 229 10^3/uL (150-450); POTASSIUM SERUM 4.3 MMOL/L (3.5-5.1); RED BLOOD COUNT 4.37 10^6/uL (4.00-5.40); SODIUM LEVEL 140 MMOL/L (136-145); TOTAL PROTEIN 7.2 G/DL (5.7-8.2); WHITE BLOOD COUNT 5.8 10^3/uL (4.0-10.0)
[2024-12-10 13:26] LABS: HEMOGLOBIN A1c 6.1 % (4.0-6.0)
== END ==
LOC: M SFHCCLAY 07:10
PROVIDERS: ATTEND Family Medicine
DX: D50.9 Iron deficiency anemia, unspecified (principal); E11.9 Type 2 diabetes mellitus without complications

== ENCOUNTER → 2025-02-26 | Outpatient (REF) | payer OTHER ==
[2025-02-26 12:37] LABS: PLATELET COUNT, AUTOMATED 245 10^3/uL (150-450)
[2025-02-26 12:40] LABS: ALT/SGPT 20 U/L (7.0-40); AST/SGOT 17 U/L (<34); CALCIUM LEVEL 9.2 MG/DL (8.5-10.1); CARBON DIOXIDE LEVEL 28 MMOL/L (20-31); CHLORIDE LEVEL 100 MMOL/L (98-107); CHOLESTEROL LEVEL 152 MG/DL (<200); CHOLESTEROL RISK RATIO 3.78 (<5); CREATININE FOR GFR 0.68 MG/DL (0.55-1.30); GLOMERULAR FILTRATION RATE > 90.0 (>51); IRON (FE) 56 UG/DL (50-170); LDL CHOLESTEROL 62.8 MG/DL (<100); MAGNESIUM LEVEL 1.2 MG/DL (1.8-2.4); NON-HDL-C 111.8 MG/DL; POTASSIUM SERUM 3.9 MMOL/L (3.5-5.1); SODIUM LEVEL 142 MMOL/L (136-145); TRIGLYCERIDES LEVEL 245 MG/DL (<150)
[2025-02-26 12:42] LABS: FREE T4 1.25 NG/DL (0.89-1.76)
[2025-02-26 12:59] LABS: ESTIMATED AVERAGE GLUCOSE 123.0 MG/DL (60-110)
== END ==
LOC: M SFHCCLAY 07:42
PROVIDERS: ATTEND Family Medicine
DX: D50.9 Iron deficiency anemia, unspecified (principal); E11.9 Type 2 diabetes mellitus without complications; I10 Essential (primary) hypertension; E78.5 Hyperlipidemia, unspecified; K21.00 Gastro-esophageal reflux disease with esophagitis, without bleeding

== ENCOUNTER → 2025-06-22 | Outpatient (REF) | payer OTHER ==
[2025-06-22 12:15] LABS: PLATELET COUNT, AUTOMATED 261 10^3/uL (150-450)
[2025-06-22 12:20] LABS: IRON (FE) 57 UG/DL (50-170)
[2025-06-22 12:21] LABS: ALT/SGPT 29 U/L (7.0-40); AST/SGOT 18 U/L (<34); CALCIUM LEVEL 9.1 MG/DL (8.5-10.1); CARBON DIOXIDE LEVEL 28 MMOL/L (20-31); CHLORIDE LEVEL 104 MMOL/L (98-107); CREATININE FOR GFR 0.64 MG/DL (0.55-1.30); GLOMERULAR FILTRATION RATE > 90.0 (>51); MAGNESIUM LEVEL 1.2 MG/DL (1.8-2.4); POTASSIUM SERUM 4.2 MMOL/L (3.5-5.1); SODIUM LEVEL 142 MMOL/L (136-145)
[2025-06-22 12:45] LABS: ESTIMATED AVERAGE GLUCOSE 123.0 MG/DL (60-110)
== END ==
LOC: M SFHCCLAY 08:34
PROVIDERS: ATTEND Family Medicine
DX: D50.9 Iron deficiency anemia, unspecified (principal); K21.00 Gastro-esophageal reflux disease with esophagitis, without bleeding; E11.9 Type 2 diabetes mellitus without complications